=== PATIENT | female | born 1945 | race Caucasian/White ===

== ENCOUNTER 2016-09-18 10:56 | Emergency (ER) | payer MEDICARE ==
[2016-09-18] MEDS ORDERED: SODIUM CHLORIDE 0.9% 500 ML IV STA (11:22)
[2016-09-18] MEDS ORDERED: SODIUM CHLORIDE 0.9% 1,000 ML IV STA (11:22)
[2016-09-18] MEDS ORDERED: cefTRIAXone 2,000 MG in SODIUM CHLORIDE 0.9% 100 ML IVPB STA (11:24)
[2016-09-18 12:05] VITALS: TEMP 97.8
[2016-09-18 12:13] LABS: Basophils % (A) 0 %; CH 29.2; CHCM 32.2; Eosinophils # (A) 0.1 k/uL (0-0.7); Eosinophils % (A) 2 %; HCT 45.2 % (34.0-46.0); HDW 2.22; HGB 14.2 gm/dL (11.4-16.0); Luc % (Auto) 2; Lymphocytes # (A) 0.6 k/uL (1.0-4.8); Lymphocytes % (A) 9 %; MCH 28.7 pg (25.0-35.0); MCHC 31.4 g/dL (31.0-37.0); MCV 91.3 fL (80.0-100.0); Mean Platelet Volume 6.2; Monocytes # (A) 0.4 k/uL (0-1.0); Monocytes % (A) 6 %; Neutrophils # (A) 5.5 k/uL (1.3-7.7); Neutrophils % (A) 82 %; RBC 4.95 m/uL (3.80-5.40); RDW 13.4 % (11.5-15.5); WBC 6.8 k/uL (3.8-10.6); WBC (Perox) 6.75
[2016-09-18 12:25] LABS: ALT 31 U/L (9-52); AST 17 U/L (14-36); Alkaline Phosphatase 78 U/L (38-126); Anion Gap 13 mmol/L; Blood Urea Nitrogen 11 mg/dL (7-17); Calcium 9.9 mg/dL (8.4-10.2); Carbon Dioxide 30 mmol/L (22-30); Chloride 100 mmol/L (98-107); Creatine Kinase 30 U/L (30-135); Glucose 110 mg/dL (74-99); Magnesium 1.2 mg/dL (1.6-2.3); Non-African American GFR(MDRD) >60 (>60 ml/min/1.73 sqM); Potassium 4.9 mmol/L (3.5-5.1); Sodium 143 mmol/L (137-145); Total Bilirubin 0.9 mg/dL (0.2-1.3); Total Protein 6.8 g/dL (6.3-8.2)
[2016-09-18 12:36] LABS: Troponin I <0.012 ng/mL (0.000-0.034)
[2016-09-18 12:46] LABS: INR 1.1 (<1.1); Partial Thromboplastin Time 24.3 sec (22.0-30.0); Prothrombin Time 10.7 sec (9.0-12.0)
--- NOTE | 2016-09-18 13:01 | XR ---
EXAMINATION TYPE: XR chest 2V DATE OF EXAM: 09/18/2016 12:42 PM COMPARISON: 07/18/[address] 09/01/2016 HISTORY: 71-year-old female with dysrhythmia and history of lung cancer TECHNIQUE: PA and lateral views FINDINGS: Hyperinflation with diffuse interstitial densities. Heart is normal size. As compared to the prior ra diograph, there is a new small left pleural effusion. Continued left perihilar opacity. IMPRESSION: 1. COPD with known left perihilar malignancy. 2. New small left pleural effusion.
[2016-09-18 13:28] LABS: Appearance,Urine Clear (Clear); Bilirubin,Urine Negative (Negative); Glucose,Urine (UA) Negative (Negative); Ketones,Urine Negative (Negative); Leukocyte Esterase,Urine Negative (Negative); Nitrite,Urine Negative (Negative); Protein,Urine Negative (Negative); Specific Gravity,Urine 1.007 (1.001-1.035); UA Billing (MACRO vs. MICRO) CHEM; Urobilinogen,Urine <2.0 mg/dL (<2.0)
--- NOTE | 2016-09-18 14:15 | ED ---
Arrhythmia/Palpitations HPI - General Chief Complaint: Arrhythmia/Palpitations Stated Complaint: chest pain Time Seen by Provider: 09/18/16 11:12 Source: patient Mode of arrival: wheelchair Limitations: no limitations - History of Present Illness Initial Comments: came in with a palpitation him a she does have a history of lung cancer and she had a radiation treatment today this palpitation his own, ongoing for about 24 hours she denies any fever no chills she has a history pneumonia as well. She denies any chest pain now she denies any pleuritic chest pain denies any fever no chills does have a chronic sputum production and now Dr. Davis is her oncologist area no headaches no neck stiffness no sinus symptoms of TIA or CVA - Related Data Home Medications Medication Instructions Recorded Confirmed Acetaminophen [Tylenol] 500 mg PO Q4-6H PRN 08/08/16 09/18/16 Levothyroxine Sodium [Synthroid] 25 mcg PO DAILY 08/08/16 09/18/16 Omeprazole [PriLOSEC] 20 mg PO AC-BRKFST 08/08/16 09/18/16 Simvastatin [Zocor] 20 mg PO HS 08/08/16 09/18/16 amLODIPine BESYLATE [Norvasc] 5 mg PO DAILY 08/08/16 09/18/16 Azithromycin [Zithromax Z-pack] See Taper PO DAILY 09/18/16 09/18/16 Budesonide-Formot 160-4.5 Mcg 2 puff INHALATION RT-BID 09/18/16 09/18/16 [Symbicort 160-4.5 Mcg Inhaler] Previous Rx's Medication Instructions Recorded Ipratropium-Albuterol Nebulize 3 ml INHALATION RT-QID #120 09/03/16 [Duoneb 0.5 mg-3 mg/3 ml Soln] ampul.neb predniSONE 50 mg PO DAILY #5 tab 09/18/16 Allergies Allergy/AdvReac Type Severity Reaction Status Date / Time Penicillins Allergy Rash/Hives Verified 09/18/16 11:41 Review of Systems ROS Statement: Those systems with pertinent positive or pertinent negative responses have been documented in the HPI. ROS Other: All systems not noted in ROS Statement are negative. Past Medical History Past Medical History: Cancer, GERD/Reflux, Hyperlipidemia, Hypertension, Osteoarthritis (OA), Thyroid Disorder Additional Past Medical History / Comment(s): left breast cancer, COPD, adenocarcinoma of the lung, likely of a lung primary/metastatic at this stage, hoarseness likely secondary to vocal cord paralysis on the left History of Any Multi-Drug Resistant Organisms: None Reported Past Surgical History: Cholecystectomy, Orthopedic Surgery Additional Past Surgical History / Comment(s): left total knee replacement 2012 , gall bladder 2007, left breat lumpectomy in 1999 with radiation treatments and lymph node removal on left side, EGD and colonoscopy that showed 3 polyps, left supraclavicular lymph node biopsy Past Anesthesia/Blood Transfusion Reactions: No Reported Reaction Additional Past Anesthesia/Blood Transfusion Reaction / Comment(s): blood transfusion when she has her children-no ractions to the blood Past Psychological History: No Psychological Hx Reported Smoking Status: Former smoker Past Alcohol Use History: Occasional Additional Past Alcohol Use History / Comment(s): quit smoking 12 years ago Past Drug Use History: None Reported - Past Family History Mother Family Medical History: Cancer (Mother at age of 70 from rectal cancer.) Additional Family Medical History / Comment(s): bowel Father Family Medical History: CVA/TIA (Father at age of 81 from CVA.) Brother(s) Family Medical History: No Reported History (Patient has one brother no major medical problems) Sister(s) Family Medical History: No Reported History (Patient has one sister no major medical problems) Daughter(s) Family Medical History: No Reported History (Patient has a daughter no major medical problems) Son(s) Family Medical History: No Reported History (Patient has a son no major medical problems) General Exam - General Exam Comments Initial Comments: General: The patient is awake and alert, in mild distress, GCS 15 Skin: Skin is warm and dry and no rashes or lesions are noted. Does look pale Eye: Pupils are equal, round and reactive to light, extra-ocular movements are intact; there is normal conjunctiva bilaterally. Ears, nose, mouth and throat: There are moist mucous membranes and no oral lesions. Neck: The neck is supple, there is no tenderness or JVD. Cardiovascular: There is a regular rate and rhythm. No murmur, rub or gallop is appreciated. Has a tachycardia Respiratory: To auscultation bilateral, sitting on history of smoking she still have a very good air exchange bilaterally Gastrointestinal: Soft, non-distended, non-tender abdomen without masses or organomegaly noted. There is no rebound or guarding present. Bowel sounds are unremarkable. Back: There is no tenderness to palpation in the midline. There is no obvious deformity. Musculoskeletal: Normal ROM, no tenderness, There is no pedal edema. There is no calf tenderness or swelling. No cords were appreciated. Neurological: CN II-XII intact, Cranial nerves III through XII are intact. There are no obvious motor or sensory deficits. Coordination appears grossly intact. Speech is normal. Psychiatric: Cooperative, appropriate mood & affect, normal judgment. 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 ] Respiratory 18 16 Rate Blood Pressure 110/68 128/68 O2 Sat by Pulse 94 L 94 L Oximetry EKG Findings - EKG Comments: EKG Findings:: Is sinus tachycardia heart rate is 119, AL interval is 134 QRS duration is 70, QT/QTc is 312/438, devious this EKG does not reveal any ST elevation or ST depression Medical Decision Making - Lab Data Result diagrams: 09/18/16 11:53 09/18/16 11:53 Lab Results 09/18/16 09/18/16 09/18/16 Range/Units 11:53 11:53 11:53 WBC 6.8 (3.8-10.6) k/uL RBC 4.95 (3.80-5.40) m/uL Hgb 14.2 (11.4-16.0) gm/dL Hct 45.2 (34.0-46.0) % MCV 91.3 (80.0-100.0) fL MCH 28.7 (25.0-35.0) pg MCHC 31.4 (31.0-37.0) g/dL RDW 13.4 (11.5-15.5) % Plt Count 270 (150-450) k/uL Neutrophils % 82 % Lymphocytes % 9 % Monocytes % 6 % Eosinophils % 2 % Basophils % 0 % Neutrophils # 5.5 (1.3-7.7) k/uL Lymphocytes # 0.6 L (1.0-4.8) k/uL Monocytes # 0.4 (0-1.0) k/uL Eosinophils # 0.1 (0-0.7) k/uL Basophils # 0.0 (0-0.2) k/uL PT (9.0-12.0) sec INR (<1.1) APTT (22.0-30.0) sec Sodium 143 (137-145) mmol/L Potassium 4.9 (3.5-5.1) mmol/L Chloride 100 (98-107) mmol/L Carbon Dioxide 30 (22-30) mmol/L Anion Gap 13 mmol/L BUN 11 (7-17) mg/dL Creatinine 0.81 (0.52-1.04) mg/dL Est GFR (MDRD) Af Amer >60 (>60 ml/min/1.73 sqM) Est GFR (MDRD) Non-Af >60 (>60 ml/min/1.73 sqM) Glucose 110 H (74-99) mg/dL Calcium 9.9 (8.4-10.2) mg/dL Magnesium 1.2 L (1.6-2.3) mg/dL Total Bilirubin 0.9 (0.2-1.3) mg/dL AST 17 (14-36) U/L ALT 31 (9-52) U/L Alkaline Phosphatase 78 (38-126) U/L Total Creatine Kinase 30 (30-135) U/L CK-MB (CK-2) 1.0 (0.0-2.4) ng/mL CK-MB (CK-2) Rel Index 3.3 Troponin I <0.012 (0.000-0.034) ng/mL Total Protein 6.8 (6.3-8.2) g/dL Albumin 3.9 (3.5-5.0) g/dL TSH 1.570 (0.465-4.680) mIU/L Urine Color Urine Appearance (Clear) Urine pH (5.0-8.0) Ur Specific [place] (1.001-1.035) Urine Protein (Negative) Urine Glucose (UA) (Negative) Urine Ketones (Negative) Urine Blood (Negative) Urine Nitrate (Negative) Urine Bilirubin (Negative) Urine Urobilinogen (<2.0) mg/dL Ur Leukocyte Esterase (Negative) 09/18/16 09/18/16 Range/Units 11:53 12:50 WBC (3.8-10.6) k/uL RBC (3.80-5.40) m/uL Hgb (11.4-16.0) gm/dL Hct (34.0-46.0) % MCV (80.0-100.0) fL MCH (25.0-35.0) pg MCHC (31.0-37.0) g/dL RDW (11.5-15.5) % Plt Count (150-450) k/uL Neutrophils % % Lymphocytes % % Monocytes % % Eosinophils % % Basophils % % Neutrophils # (1.3-7.7) k/uL Lymphocytes # (1.0-4.8) k/uL Monocytes # (0-1.0) k/uL Eosinophils # (0-0.7) k/uL Basophils # (0-0.2) k/uL PT 10.7 (9.0-12.0) sec INR 1.1 (<1.1) APTT 24.3 (22.0-30.0) sec Sodium (137-145) mmol/L Potassium (3.5-5.1) mmol/L Chloride (98-107) mmol/L Carbon Dioxide (22-30) mmol/L Anion Gap mmol/L BUN (7-17) mg/dL Creatinine (0.52-1.04) mg/dL Est GFR (MDRD) Af Amer (>60 ml/min/1.73 sqM) Est GFR (MDRD) Non-Af (>60 ml/min/1.73 sqM) Glucose (74-99) mg/dL Calcium (8.4-10.2) mg/dL Magnesium (1.6-2.3) mg/dL Total Bilirubin (0.2-1.3) mg/dL AST (14-36) U/L ALT (9-52) U/L Alkaline Phosphatase (38-126) U/L Total Creatine Kinase (30-135) U/L CK-MB (CK-2) (0.0-2.4) ng/mL CK-MB (CK-2) Rel Index Troponin I (0.000-0.034) ng/mL Total Protein (6.3-8.2) g/dL Albumin (3.5-5.0) g/dL TSH (0.465-4.680) mIU/L Urine Color Yellow Urine Appearance Clear (Clear) Urine pH 7.0 (5.0-8.0) Ur Specific [place] 1.007 (1.001-1.035) Urine Protein Negative (Negative) Urine Glucose (UA) Negative (Negative) Urine Ketones Negative (Negative) Urine Blood Negative (Negative) Urine Nitrate Negative (Negative) Urine Bilirubin Negative (Negative) Urine Urobilinogen <2.0 (<2.0) mg/dL Ur Leukocyte Esterase Negative (Negative) Critical Care Time Total Critical Care Time: 35 Critical Care Time: When she came in she was quite tachycardic and quite anxious she was given a neb treatments and Solu-Medrol, this settle things down R great her heart rate has dropped to around 1 06/14/1941 she feels lot better I offered her admission for the treatment of acute exacerbation of COPD she stated she has antibiotic at home and she do not like to steroids but she wouldn't want to the prescription of steroids and we'll determine if she develops a fever him a respecting her wishes him a she will be discharged Disposition Clinical Impression: Tachycardia, History of lung cancer, COPD with acute exacerbation Disposition: HOME SELF-CARE Condition: Fair Instructions: Palpitations (ED) Prescriptions: predniSONE 50 mg PO DAILY #5 tab
[2016-09-18 14:23] VITALS: BP 126/72; PULSE 114; RESP 14
== END 2016-09-18 14:31 | disposition home or self-care (01) ==
LOC: EC 10:56
DX: J44.1 Chronic obstructive pulmonary disease with (acute) exacerbation (principal); C34.90 Malignant neoplasm of unspecified part of unspecified bronchus or lung; Z87.01 Personal history of pneumonia (recurrent); R00.0 Tachycardia, unspecified; I10 Essential (primary) hypertension; E78.5 Hyperlipidemia, unspecified; E07.9 Disorder of thyroid, unspecified; K21.9 Gastro-esophageal reflux disease without esophagitis; Z79.51 Long term (current) use of inhaled steroids; Z79.899 Other long term (current) drug therapy; Z88.0 Allergy status to penicillin; Z85.3 Personal history of malignant neoplasm of breast; Z87.891 Personal history of nicotine dependence
CPT/HCPCS: 99291; 96365; 96361; 36415; 93005; 80053; 82550; 82553; 83735; 84443; 84484; 85025; 85610; 85730; 81003; 87040; 87086; 71020; J0696

== ENCOUNTER → 2016-10-13 | Outpatient (CLI) | payer MEDICARE ==
[2016-10-13 13:03] LABS: Blood Urea Nitrogen 20 mg/dL (7-17); Non-African American GFR(MDRD) >60 (>60 ml/min/1.73 sqM)
--- NOTE | 2016-10-13 13:52 | CT ---
EXAMINATION TYPE: CT chest w con DATE OF EXAM: 10/13/2016 1:29 PM COMPARISON: 08/04/2016 HISTORY: Follow up lung cancer, history of breast cancer CT DLP: 171.8 mGycm Automated exposure control for dose reduction was used. CONTRAST: CT scan of the chest is performed with IV Contrast, patient injected with 100 mL of Omnipaque 300. FINDINGS: LUNGS: Left upper lobe mass is significantly improved relative to the prior study and currently measu res approximately 3.3 x 2.2 cm versus 4.2 x 3.7 cm previously. Mass extends to the pleural surface as well as linear density extending to the left hilum. There are however new multiple pulmonary nodules throughout both lung fischer which have increased in number and size in the interval. The number of n odules bilaterally is considered innumerable. The largest nodule at the left lung base measures 1.7 c m with the largest at the right lower lobe posterior sulcus measuring 1.5 cm. Mediastinum and hilum: Right hilar adenopathy measures 2.4 cm versus not present previously. Left hil ar adenopathy appears improved measuring 9.7 mm versus 1.2 cm. Prevascular space adenopathy persists as well and is also essentially unchanged measuring up to 1.3 cm. Right paratracheal adenopathy measu res 1.7 cm versus 1.2 cm. Subcarinal adenopathy measures 2.2 cm versus 1.8 cm. Paraesophageal adenopa thy noted as well measuring 1.8 cm versus 1.2 cm. No pericardial effusion is seen. Thoracic aorta is of normal caliber. The heart is not enlarged. UPPER ABDOMEN: Hypervascular lesion within the anterior segment right hepatic lobe at its periphery i s essentially unchanged. No additional hepatic lesions identified with certainty. OTHER: Left supraclavicular adenopathy is unchanged and measuring 2.7 cm versus 2.7 cm previously. S ubcutaneous nodule measuring 1 cm anterior to the chest wall just inferior to the right breast lumpec larry changes left breast with small spiculated density remaining unchanged. IMPRESSION: 1. Significant improvement in left upper lobe mass which currently measures 3.3 x 2.2 cm versus 4.2 x 3.7 cm previously however there are innumerable pulmonary nodules which have increased in size and n umber in the interval compatible with metastatic disease. 2. Mediastinal and hilar adenopathy as discussed above. Some of the adenopathy appears to have progre ssed. 3. Suspect hepatic metastatic lesion which is stable.
== END | disposition home or self-care (01) ==
LOC: RADCTMAIN 12:28
PROVIDERS: ATTEND Internal Medicine Hematology & Oncology
DX: R91.8 Other nonspecific abnormal finding of lung field (principal); R59.0 Localized enlarged lymph nodes
CPT/HCPCS: 82565; 84520; 71260; 36415; Q9967

== ENCOUNTER 2016-10-16 14:21 | Inpatient (IN) | payer MEDICARE ==
[2016-10-16] MEDS ORDERED: SODIUM CHLORIDE 0.9% 1,000 ML IV STA ×3 (15:04→16:13)
--- NOTE | 2016-10-16 15:17 | ED ---
General Adult HPI - General Chief complaint: Arrhythmia/Palpitations Stated complaint: elevated heart rate-sent by Dr. Sr Seen by Provider: 10/16/16 15:04 Source: patient, RN notes reviewed, old records reviewed Mode of arrival: wheelchair Limitations: no limitations - History of Present Illness Initial comments: This is a 71-year-old female the ER for evaluation of weakness, tachycardia, mild shortness of breath. Patient does have cancer and suffers from tachycardia , dehydration weakness. Patient coming in for same symptoms. Increasing her in the 160s today, shortness of breath. Patient denies any fevers, no cough no congestion. This started this week tired and fatigued - Related Data Home Medications Medication Instructions Recorded Confirmed Acetaminophen [Tylenol] 500 mg PO Q4-6H PRN 08/08/16 10/16/16 Levothyroxine Sodium [Synthroid] 25 mcg PO DAILY 08/08/16 10/16/16 Omeprazole [PriLOSEC] 20 mg PO AC-BRKFST 08/08/16 10/16/16 Simvastatin [Zocor] 20 mg PO HS 08/08/16 10/16/16 amLODIPine BESYLATE [Norvasc] 5 mg PO DAILY 08/08/16 10/16/16 Budesonide-Formot 160-4.5 Mcg 2 puff INHALATION RT-BID 09/18/16 10/16/16 [Symbicort 160-4.5 Mcg Inhaler] ALPRAZolam [Xanax] 0.5 mg PO DAILY PRN 10/16/16 10/16/16 Ipratropium-Albuterol Nebulize 3 ml INHALATION RT-TID PRN 10/16/16 10/16/16 [Duoneb 0.5 mg-3 mg/3 ml Soln] Ondansetron [Zofran] 4 mg PO TID 10/16/16 10/16/16 Allergies Allergy/AdvReac Type Severity Reaction Status Date / Time Penicillins Allergy Rash/Hives Verified 10/16/16 15:56 Review of Systems ROS Statement: Those systems with pertinent positive or pertinent negative responses have been documented in the HPI. ROS Other: All systems not noted in ROS Statement are negative. Past Medical History Past Medical History: Cancer, GERD/Reflux, Hyperlipidemia, Hypertension, Osteoarthritis (OA), Thyroid Disorder Additional Past Medical History / Comment(s): left breast cancer, COPD, adenocarcinoma of the lung, likely of a lung primary/metastatic at this stage, hoarseness likely secondary to vocal cord paralysis on the left History of Any Multi-Drug Resistant Organisms: None Reported Past Surgical History: Cholecystectomy, Orthopedic Surgery Additional Past Surgical History / Comment(s): left total knee replacement 2012 , gall bladder 2007, left breat lumpectomy in 1999 with radiation treatments and lymph node removal on left side, EGD and colonoscopy that showed 3 polyps, left supraclavicular lymph node biopsy Past Anesthesia/Blood Transfusion Reactions: No Reported Reaction Additional Past Anesthesia/Blood Transfusion Reaction / Comment(s): blood transfusion when she has her children-no ractions to the blood Past Psychological History: No Psychological Hx Reported Smoking Status: Former smoker Past Alcohol Use History: Occasional Additional Past Alcohol Use History / Comment(s): quit smoking 12 years ago Past Drug Use History: None Reported - Past Family History Mother Family Medical History: Cancer (Mother at age of 70 from rectal cancer.) Additional Family Medical History / Comment(s): bowel Father Family Medical History: CVA/TIA (Father at age of 81 from CVA.) Brother(s) Family Medical History: No Reported History (Patient has one brother no major medical problems) Sister(s) Family Medical History: No Reported History (Patient has one sister no major medical problems) Daughter(s) Family Medical History: No Reported History (Patient has a daughter no major medical problems) Son(s) Family Medical History: No Reported History (Patient has a son no major medical problems) General Exam Limitations: no limitations General appearance: alert, in no apparent distress Head exam: Present: atraumatic, normocephalic, normal inspection Eye exam: Present: normal appearance, PERRL, EOMI. Absent: scleral icterus, conjunctival injection, periorbital swelling ENT exam: Present: normal exam, mucous membranes moist Neck exam: Present: normal inspection. Absent: tenderness, meningismus, lymphadenopathy Respiratory exam: Present: normal lung sounds bilaterally. Absent: respiratory distress, wheezes, rales, rhonchi, stridor Cardiovascular Exam: Present: tachycardia, irregular rhythm, normal heart sounds. Absent: systolic murmur, diastolic murmur, rubs, gallop, clicks GI/Abdominal exam: Present: soft, normal bowel sounds. Absent: distended, tenderness, guarding, rebound, rigid Extremities exam: Present: normal inspection, full ROM, normal capillary refill. Absent: tenderness, pedal edema, joint swelling, calf tenderness Back exam: Present: normal inspection Neurological exam: Present: alert, oriented X3, CN II-XII intact Psychiatric exam: Present: normal affect, normal mood Skin exam: Present: warm, dry, intact, normal color. Absent: rash Course Vital Signs 10/16/16 10/16/16 10/16/16 14:37 15:09 15:21 Temperature 97.7 F Pulse Rate 126 H 112 H Respiratory 18 20 18 Rate Blood Pressure 149/69 121/72 O2 Sat by Pulse 96 96 Oximetry - Reevaluation(s) Reevaluation #1: 10/16/16 16:17 Patient still feels weak EKG Findings - EKG Comments: EKG Findings:: EKG shows sinus tachycardia rate 117, LA 144, QRS 94, QTC 426 Medical Decision Making - Medical Decision Making 71 female the ER with history of lung cancer coming in with tachycardia elevated heart rate dehydration and decreased appetite. Patient is dehydrated with mild renal failure, is low magnesium. Patient be admitted for magnesium replacement and IV hydration and fluid resuscitation - Lab Data Result diagrams: 10/16/16 15:00 10/16/16 15:00 Lab Results 10/16/16 10/16/16 10/16/16 Range/Units 15:00 15:00 15:00 WBC 2.1 L (3.8-10.6) k/uL RBC 5.17 (3.80-5.40) m/uL Hgb 15.0 (11.4-16.0) gm/dL Hct 45.8 (34.0-46.0) % MCV 88.5 (80.0-100.0) fL MCH 29.0 (25.0-35.0) pg MCHC 32.8 (31.0-37.0) g/dL RDW 12.9 (11.5-15.5) % Plt Count 301 (150-450) k/uL Neutrophils % 64 % Lymphocytes % 25 % Monocytes % 3 % Eosinophils % 4 % Basophils % 1 % Neutrophils # 1.4 (1.3-7.7) k/uL Lymphocytes # 0.5 L (1.0-4.8) k/uL Monocytes # 0.1 (0-1.0) k/uL Eosinophils # 0.1 (0-0.7) k/uL Basophils # 0.0 (0-0.2) k/uL PT (9.0-12.0) sec INR (<1.1) APTT (22.0-30.0) sec Sodium 138 (137-145) mmol/L Potassium 4.2 (3.5-5.1) mmol/L Chloride 97 L (98-107) mmol/L Carbon Dioxide 24 (22-30) mmol/L Anion Gap 17 mmol/L BUN 23 H (7-17) mg/dL Creatinine 1.00 (0.52-1.04) mg/dL Est GFR (MDRD) Af Amer >60 (>60 ml/min/1.73 sqM) Est GFR (MDRD) Non-Af 55 (>60 ml/min/1.73 sqM) Glucose 118 H (74-99) mg/dL Calcium 10.2 (8.4-10.2) mg/dL Phosphorus 3.5 (2.5-4.5) mg/dL Magnesium 1.2 L (1.6-2.3) mg/dL Total Bilirubin 0.8 (0.2-1.3) mg/dL AST 21 (14-36) U/L ALT 34 (9-52) U/L Alkaline Phosphatase 89 (38-126) U/L Total Creatine Kinase 25 L (30-135) U/L CK-MB (CK-2) 0.6 (0.0-2.4) ng/mL CK-MB (CK-2) Rel Index 2.4 Troponin I <0.012 (0.000-0.034) ng/mL Total Protein 7.5 (6.3-8.2) g/dL Albumin 4.5 (3.5-5.0) g/dL TSH 3.190 (0.465-4.680) mIU/L 10/16/16 Range/Units 15:00 WBC (3.8-10.6) k/uL RBC (3.80-5.40) m/uL Hgb (11.4-16.0) gm/dL Hct (34.0-46.0) % MCV (80.0-100.0) fL MCH (25.0-35.0) pg MCHC (31.0-37.0) g/dL RDW (11.5-15.5) % Plt Count (150-450) k/uL Neutrophils % % Lymphocytes % % Monocytes % % Eosinophils % % Basophils % % Neutrophils # (1.3-7.7) k/uL Lymphocytes # (1.0-4.8) k/uL Monocytes # (0-1.0) k/uL Eosinophils # (0-0.7) k/uL Basophils # (0-0.2) k/uL PT 10.9 (9.0-12.0) sec INR 1.1 (<1.1) APTT 26.2 (22.0-30.0) sec Sodium (137-145) mmol/L Potassium (3.5-5.1) mmol/L Chloride (98-107) mmol/L Carbon Dioxide (22-30) mmol/L Anion Gap mmol/L BUN (7-17) mg/dL Creatinine (0.52-1.04) mg/dL Est GFR (MDRD) Af Amer (>60 ml/min/1.73 sqM) Est GFR (MDRD) Non-Af (>60 ml/min/1.73 sqM) Glucose (74-99) mg/dL Calcium (8.4-10.2) mg/dL Phosphorus (2.5-4.5) mg/dL Magnesium (1.6-2.3) mg/dL Total Bilirubin (0.2-1.3) mg/dL AST (14-36) U/L ALT (9-52) U/L Alkaline Phosphatase (38-126) U/L Total Creatine Kinase (30-135) U/L CK-MB (CK-2) (0.0-2.4) ng/mL CK-MB (CK-2) Rel Index Troponin I (0.000-0.034) ng/mL Total Protein (6.3-8.2) g/dL Albumin (3.5-5.0) g/dL TSH (0.465-4.680) mIU/L - Radiology Data Radiology results: report reviewed (Chest x-ray negative for acute disease), image reviewed Disposition Clinical Impression: Tachycardia, Weakness, Hypomagnesemia Disposition: ADMITTED IP TO THIS HOSP Condition: Good Referrals: Collins Bruno DO [Primary Care Provider] - 1-2 days
[2016-10-16 15:21] LABS: Basophils % (A) 1 %; CH 29.3; CHCM 33.2; Eosinophils # (A) 0.1 k/uL (0-0.7); Eosinophils % (A) 4 %; HCT 45.8 % (34.0-46.0); HDW 2.41; Luc # (Auto) 0.07; Luc % (Auto) 3; Lymphocytes # (A) 0.5 k/uL (1.0-4.8); Lymphocytes % (A) 25 %; MCHC 32.8 g/dL (31.0-37.0); MCV 88.5 fL (80.0-100.0); Mean Platelet Volume 6.3; Monocytes # (A) 0.1 k/uL (0-1.0); Monocytes % (A) 3 %; Neutrophils # (A) 1.4 k/uL (1.3-7.7); Neutrophils % (A) 64 %; RBC 5.17 m/uL (3.80-5.40); RDW 12.9 % (11.5-15.5); WBC 2.1 k/uL (3.8-10.6); WBC (Perox) 2.08
[2016-10-16 15:25] LABS: Glucose 118 mg/dL (74-99)
[2016-10-16 15:26] LABS: ALT 34 U/L (9-52); AST 21 U/L (14-36); Alkaline Phosphatase 89 U/L (38-126); Anion Gap 17 mmol/L; Blood Urea Nitrogen 23 mg/dL (7-17); Calcium 10.2 mg/dL (8.4-10.2); Carbon Dioxide 24 mmol/L (22-30); Chloride 97 mmol/L (98-107); INR 1.1 (<1.1); Magnesium 1.2 mg/dL (1.6-2.3); Non-African American GFR(MDRD) 55 (>60 ml/min/1.73 sqM); Partial Thromboplastin Time 26.2 sec (22.0-30.0); Phosphorous 3.5 mg/dL (2.5-4.5); Potassium 4.2 mmol/L (3.5-5.1); Prothrombin Time 10.9 sec (9.0-12.0); Sodium 138 mmol/L (137-145); Total Bilirubin 0.8 mg/dL (0.2-1.3); Total Protein 7.5 g/dL (6.3-8.2)
[2016-10-16 15:36] LABS: Creatine Kinase 25 U/L (30-135)
--- NOTE | 2016-10-16 15:39 | XR ---
EXAMINATION TYPE: XR chest 2V DATE OF EXAM: 10/16/2016 3:31 PM COMPARISON: 09/18/2016 HISTORY: Shortness of breath FINDINGS: Hyperinflation compatible COPD. Coarsened interstitium suggestive of pulmonary fibrosis. Left upper l obe mass appears reduced in size measuring approximately 3.3 cm. Nodularity at the lung bases also no bryson. Degenerative change of the spine. IMPRESSION: 1. COPD with suspected pulmonary fibrosis. 2. Bilateral pulmonary nodules and left upper lobe lung mass.
[2016-10-16 15:50] LABS: Creatine Kinase MB 0.6 ng/mL (0.0-2.4); Troponin I <0.012 ng/mL (0.000-0.034)
[2016-10-16] MEDS ORDERED: SODIUM CHLORIDE 0.9% 1,000 ML IV ONE (16:12)
[2016-10-16] MEDS: MAGNESIUM SULFATE-D5W PMX 1 GM in DEXTROSE/WATER 1 100ML.BAG IVPB SCH ×3 (16:26→22:01)
[2016-10-16 17:40] LABS: Appearance,Urine Clear (Clear); Bacteria,Urine Rare /hpf; Bilirubin,Urine Negative (Negative); Glucose,Urine (UA) Negative (Negative); Ketones,Urine Negative (Negative); Leukocyte Esterase,Urine Trace (Negative); Mucus,Urine Occasional /hpf; Nitrite,Urine Negative (Negative); PH, Urine 5.5 (5.0-8.0); Particle Count 932; Protein,Urine Negative (Negative); RBC,Urine <1 /hpf (0-5); Specific Gravity,Urine 1.007 (1.001-1.035); UA Billing (MACRO vs. MICRO) MICRO; Urobilinogen,Urine <2.0 mg/dL (<2.0); WBC,Urine 1 /hpf (0-5)
[2016-10-16] MEDS ORDERED: IPRATROPIUM-ALBUTEROL 3 ML NEB INHALATION PRN (20:42)
[2016-10-16] MEDS ORDERED: ACETAMINOPHEN TAB 500 MG TAB PO PRN (20:42)
[2016-10-16] MEDS ORDERED: ALPRAZolam 0.5 MG TAB PO PRN (20:42)
[2016-10-16] MEDS ORDERED: ATORVASTATIN 10 MG TAB PO SCH (21:00)
[2016-10-16] MEDS: ONDANSETRON 4 MG TAB PO SCH (22:02)
[2016-10-17] MEDS: MAGNESIUM SULFATE-D5W PMX 1 GM in DEXTROSE/WATER 1 100ML.BAG IVPB SCH (00:21)
[2016-10-17] MEDS ORDERED: LEVOTHYROXINE 25 MCG TAB PO SCH (06:30)
[2016-10-17] MEDS: ONDANSETRON 4 MG TAB PO SCH (07:13)
[2016-10-17] MEDS ORDERED: PANTOPRAZOLE 40 MG TABLET PO SCH (07:30)
[2016-10-17 07:42] VITALS: BP 126/58; PULSE 102; RESP 20; TEMP 97.9
[2016-10-17 07:51] LABS: Basophils % (A) 2 %; CH 28.8; CHCM 31.3; Eosinophils # (A) 0.1 k/uL (0-0.7); Eosinophils % (A) 6 %; HCT 35.9 % (34.0-46.0); HDW 2.25; Luc # (Auto) 0.05; Luc % (Auto) 3; Lymphocytes # (A) 0.5 k/uL (1.0-4.8); Lymphocytes % (A) 30 %; MCH 29.7 pg (25.0-35.0); MCHC 32.2 g/dL (31.0-37.0); MCV 92.4 fL (80.0-100.0); Mean Platelet Volume 6.4; Monocytes # (A) 0.1 k/uL (0-1.0); Monocytes % (A) 8 %; Neutrophils # (A) 0.8 k/uL (1.3-7.7); Neutrophils % (A) 51 %; RBC 3.89 m/uL (3.80-5.40); RDW 12.9 % (11.5-15.5); WBC (Perox) 1.72
[2016-10-17 07:54] LABS: ALT 30 U/L (9-52); AST 17 U/L (14-36); Alkaline Phosphatase 57 U/L (38-126); Anion Gap 12 mmol/L; Blood Urea Nitrogen 11 mg/dL (7-17); Calcium 8.6 mg/dL (8.4-10.2); Carbon Dioxide 22 mmol/L (22-30); Chloride 104 mmol/L (98-107); Glucose 94 mg/dL (74-99); HGB 11.6 gm/dL (11.4-16.0); Magnesium 2.2 mg/dL (1.6-2.3); Non-African American GFR(MDRD) >60 (>60 ml/min/1.73 sqM); Potassium 4.1 mmol/L (3.5-5.1); Sodium 138 mmol/L (137-145); Total Bilirubin 0.7 mg/dL (0.2-1.3); Total Protein 5.7 g/dL (6.3-8.2)
[2016-10-17 07:57] LABS: WBC 1.6 k/uL (3.8-10.6)
[2016-10-17] MEDS ORDERED: SYMBICORT 160-4.5 MCG INHALER INHALATION SCH (08:00)
[2016-10-17] MEDS ORDERED: amLODIPine 5 MG TAB PO SCH (09:00)
[2016-10-17] MEDS ORDERED: ENOXAPARIN 40 MG/0.4 ML SYRINGE SQ SCH (09:00)
[2016-10-17 13:42] VITALS: BMI 25.7
--- NOTE | 2016-10-21 08:36 | P.HPIM ---
History of Present Illness H&P Date: 10/16/16 Chief Complaint: Acute kidney injury/hypomagnesemia/sinus tachycardia This is a 71-year-old female patient of Dr. Bruno has a recent diagnosis of a lung mass which is considered to be of a primary lung. Her history dates back to around a few months back when she started having symptoms of increased cough and shortness of breath and she was given several rounds of antibiotics and ultimately she had a CAT scan of the chest which showed a masslike consolidation in the lingula in addition to left hilar, subcarinal, right hilar and an left supraclavicular lymphadenopathy. Based on this, the patient was sent for a fine-needle aspirate of the supraclavicular lymph node and a diagnosis was consistent with adenocarcinoma and the pathologist favored a GI origin rather than lungs. A PET scan was also completed which also confirmed the findings with her was a left upper lobe mass extending to the left hilar and supraclavicular area with intense uptake consistent with carcinoma. Based on the path report, the patient was referred to [place] for a second opinion. The patient was able to see Dr. Casie Montero and she is seeing Dr. Davis locally. In addition, the mediastinal mass is causing mass effect on the mid esophagus causing proximal esophageal dilatation. Apparently the patient was discharged and has been following with Dr. Melissa and she has been getting chemotherapy, today she went for evaluation and the patient had episode of sinus tachycardia and she was quite dehydrated she ended up referred to the emergency perforated evaluation she was found to have hypomagnesemia and acute kidney injury due to dehydration she was started on IV fluid resuscitation she was admitted to hospital for evaluation and the hematology oncology consultation was obtained from Dr. Davis . Review of Systems Constitutional: Reports anorexia, Reports fatigue, Reports lethargy, Reports weakness, Reports weight loss Eyes: denies blurred vision Ears: deny: decreased hearing Ears, nose, mouth and throat: Denies dysphagia, Denies neck lump, Denies sore throat Cardiovascular: Reports decreased exercise tolerance, Reports dyspnea on exertion, Reports rapid heart beat, Reports shortness of breath, Denies chest pain, Denies syncope Respiratory: Reports congestion, Reports cough, Reports cough with sputum, Reports dyspnea, Reports wheezing, Denies sleep apnea, Denies snoring Gastrointestinal: Reports nausea, Denies abdominal pain, Denies bloating, Denies BRBPR, Denies heartburn, Denies melena, Denies vomiting Genitourinary: Denies dysuria, Denies hematuria Musculoskeletal: Denies myalgias Musculoskeletal: absent: ankle pain, ankle stiffness, ankle swelling, elbow pain , elbow stiffness, elbow swelling, foot pain, foot stiffness, foot swelling, hand pain, hand stiffness, hand swelling, hip pain, hip stiffness, hip swelling , knee pain, knee stiffness, knee swelling, shoulder pain, shoulder stiffness, shoulder swelling, wrist pain, wrist stiffness, wrist swelling Integumentary: Denies pruritus, Denies rash Neurological: Denies numbness, Denies weakness Psychiatric: Denies anxiety, Denies depression Past Medical History Past Medical History: Cancer, GERD/Reflux, Hyperlipidemia, Hypertension, Osteoarthritis (OA), Thyroid Disorder Additional Past Medical History / Comment(s): left breast cancer, COPD, adenocarcinoma of the lung-"pt stated stage 4" finished 10 radiation tx and had first chemo tx 10-09-16,home 02 2 liters nc/ atc, hoarseness thought likely secondary to vocal cord paralysis on the left, intermittent lichen planus(none current) History of Any Multi-Drug Resistant Organisms: None Reported Past Surgical History: Cholecystectomy, Orthopedic Surgery Additional Past Surgical History / Comment(s): left total knee replacement 2012 , gall bladder 2007, left breat lumpectomy in 1999 with radiation treatments and lymph node removal on left side, EGD and colonoscopy that showed 3 polyps, left supraclavicular lymph node biopsy(pt stated was positive). Past Anesthesia/Blood Transfusion Reactions: No Reported Reaction Additional Past Anesthesia/Blood Transfusion Reaction / Comment(s): blood transfusion when she has her children-no ractions to the blood Past Psychological History: No Psychological Hx Reported Smoking Status: Former smoker Past Alcohol Use History: Occasional Additional Past Alcohol Use History / Comment(s): started smoking 89,quit smoking 12 years ago(2004), was smoking 1 ppd. Past Drug Use History: None Reported - Past Family History Mother Family Medical History: Cancer Additional Family Medical History / Comment(s): bowel Father Family Medical History: CVA/TIA Brother(s) Family Medical History: No Reported History Sister(s) Family Medical History: No Reported History Daughter(s) Family Medical History: No Reported History Son(s) Family Medical History: No Reported History Medications and Allergies Home Medications Medication Instructions Recorded Confirmed Type Acetaminophen [Tylenol] 500 mg PO Q4-6H PRN 08/08/16 10/16/16 History Levothyroxine Sodium [Synthroid] 25 mcg PO DAILY 08/08/16 10/16/16 History Omeprazole [PriLOSEC] 20 mg PO AC-BRKFST 08/08/16 10/16/16 History Simvastatin [Zocor] 20 mg PO HS 08/08/16 10/16/16 History amLODIPine BESYLATE [Norvasc] 5 mg PO DAILY 08/08/16 10/16/16 History Budesonide-Formot 160-4.5 Mcg 2 puff INHALATION RT-BID 09/18/16 10/16/16 History [Symbicort 160-4.5 Mcg Inhaler] ALPRAZolam [Xanax] 0.5 mg PO DAILY PRN 10/16/16 10/16/16 History Ipratropium-Albuterol Nebulize 3 ml INHALATION RT-TID PRN 10/16/16 10/16/16 History [Duoneb 0.5 mg-3 mg/3 ml Soln] Ondansetron [Zofran] 4 mg PO TID 10/16/16 10/16/16 History Allergies Allergy/AdvReac Type Severity Reaction Status Date / Time Penicillins Allergy Rash/Hives Verified 10/16/16 15:56 Physical Exam Vitals: Vital Signs Pulse Resp BP Pulse Ox 10/16/16 16:26 100 18 112/74 97 - Constitutional General appearance: mild distress, thin - EENT Eyes: anicteric sclerae, PERRLA, no ptosis, no scleral icterus, normal appearance ENT: normal oropharynx, no thrush Ears: bilateral: normal - Neck Neck: normal ROM, no rigidity, no thyromegaly Carotids: bilateral: upstroke delayed Thyroid: bilateral: normal size - Respiratory Respiratory: bilateral: diminished, rhonchi, prolonged expiration, negative: dullness, wheezing - Cardiovascular Rhythm: regular Heart sounds: normal: S1, S2 Abnormal Heart Sounds: no S3 Gallop, no S4 Gallop, no click - Gastrointestinal General gastrointestinal: normal bowel sounds, soft, no splenomegaly, no tenderness, no umbilical hernia, no ventral hernia - Integumentary Integumentary: decreased turgor, normal, normal turgor - Neurologic Neurologic: CNII-XII intact - Musculoskeletal Musculoskeletal: generalized weakness - Psychiatric Psychiatric: A&O x's 3, appropriate affect, intact judgment & insight Results CBC & Chem 7: 10/16/16 15:00 10/16/16 15:00 Labs: Abnormal Lab Results - Last 24 Hours (Table) 10/16/16 Range/Units 17:20 Ur Leukocyte Esterase Trace H (Negative) Urine Bacteria Rare H (None) /hpf Urine Mucus Occasional H (None) /hpf Thrombosis Risk Factor Assmnt - DVT/VTE Prophylaxis DVT/VTE Prophylaxis: Pharmacologic Prophylaxis ordered, Mechanical Prophylaxis ordered Assessment and Plan Plan: Assessment and plan: 1. Pre-renal azotemia. Start IV fluid resuscitation the form of normal saline at 100 mL an hour, monitor CMP magnesium tomorrow morning. 2. Hypomagnesemia. Patient will be given magnesium sulfate 2 g IV piggyback 1. Repeat magnesium tomorrow morning 3. Hypertension and hypertensive cardiovascular disease. Continue amlodipine 5 mg orally once every day. 4. Hyperlipidemia. Continue simvastatin 20 mg orally bedtime. 5. Hypothyroidism. Continue Synthroid 25 g orally once every day. 6. Vitamin D deficiency. Continue vitamin D3 1000 international units once every day. 7. History of breast cancer status post left lumpectomy with radiation and 5 year hormonal therapy. 8. Hoarseness secondary to vocal cord paralysis. Stable at this time 9. DVT prophylaxis. Heparin 5000 units subcutaneously every 12 hours, bilateral knee-high MACY hose. 10. GI prophylaxis. Continue Protonix 40 mg IV push every 24 hours. 11. Patient is no code per her own wishes.
--- NOTE | 2016-10-21 08:45 | P.DS ---
Providers Date of admission: 10/16/16 16:12 Expected date of discharge: 10/17/16 Attending physician: Natalie Llanos Primary care physician: Collins [facility] Hospital Course: This is a 71-year-old female patient of Dr. Bruno has a recent diagnosis of a lung mass which is considered to be of a primary lung. Her history dates back to around a few months back when she started having symptoms of increased cough and shortness of breath and she was given several rounds of antibiotics and ultimately she had a CAT scan of the chest which showed a masslike consolidation in the lingula in addition to left hilar, subcarinal, right hilar and an left supraclavicular lymphadenopathy. Based on this, the patient was sent for a fine-needle aspirate of the supraclavicular lymph node and a diagnosis was consistent with adenocarcinoma and the pathologist favored a GI origin rather than lungs. A PET scan was also completed which also confirmed the findings with her was a left upper lobe mass extending to the left hilar and supraclavicular area with intense uptake consistent with carcinoma. Based on the path report, the patient was referred to [place] for a second opinion. The patient was able to see Dr. Casie Montero and she is seeing Dr. Davis locally. In addition, the mediastinal mass is causing mass effect on the mid esophagus causing proximal esophageal dilatation. Apparently the patient was discharged and has been following with Dr. Melissa and she has been getting chemotherapy, today she went for evaluation and the patient had episode of sinus tachycardia and she was quite dehydrated she ended up referred to the emergency perforated evaluation she was found to have hypomagnesemia and acute kidney injury due to dehydration she was started on IV fluid resuscitation she was admitted to hospital for evaluation and the hematology oncology consultation was obtained from Dr. Davis. Repeat lab work showed WBC 1.6, chloride 104, BUN 11 and creatinine 0.75 and magnesium 2.2. Patient is feeling much improved. Heart rate is running 85- 100. Patient will be discharged home today in stable condition. Discharge diagnoses: 1. Pre-renal azotemia. 2. Hypomagnesemia. 3. Hypertension and hypertensive cardiovascular disease. 4. Hyperlipidemia. 5. Hypothyroidism. 6. Vitamin D deficiency. 7. History of breast cancer status post left lumpectomy with radiation and 5 year hormonal therapy. 8. Hoarseness secondary to vocal cord paralysis. Discharge plan: Return home Impression and plan of care have been directed as dictated by the signing physician. Ashlyn Jay nurse practitioner acting as scribe for signing physician. Cc: Dr. Collins Bruno Patient Condition at Discharge: Good Plan - Discharge Summary Discharge Medication List Acetaminophen [Tylenol] 500 mg PO Q4-6H PRN 08/08/16 [History] Levothyroxine Sodium [Synthroid] 25 mcg PO DAILY 08/08/16 [History] Omeprazole [PriLOSEC] 20 mg PO AC-BRKFST 08/08/16 [History] Simvastatin [Zocor] 20 mg PO HS 08/08/16 [History] amLODIPine BESYLATE [Norvasc] 5 mg PO DAILY 08/08/16 [History] Budesonide-Formot 160-4.5 Mcg [Symbicort 160-4.5 Mcg Inhaler] 2 puff INHALATION RT-BID 09/18/16 [History] ALPRAZolam [Xanax] 0.5 mg PO DAILY PRN 10/16/16 [History] Ipratropium-Albuterol Nebulize [Duoneb 0.5 mg-3 mg/3 ml Soln] 3 ml INHALATION RT -TID PRN 10/16/16 [History] Ondansetron [Zofran] 4 mg PO TID 10/16/16 [History] Follow up Appointment(s)/Referral(s): Collins Bruno DO [Primary Care Provider] - 1 Week (office will call with appointment date adn time ) Patient Instructions/Handouts: Hypomagnesemia (DC), Tachycardia (GEN) Activity/Diet/Wound Care/Special Instructions: Activity: As tolerated Diet: Regular Discharge Disposition: HOME SELF-CARE
== END 2016-10-17 16:00 | disposition home or self-care (01) | DRG 641 ==
LOC: EC 14:21 → 5ONC 16:12
PROVIDERS: ADMIT Internal Medicine; ATTEND Internal Medicine
DX: E83.42 Hypomagnesemia (principal); C34.90 Malignant neoplasm of unspecified part of unspecified bronchus or lung; J38.01 Paralysis of vocal cords and larynx, unilateral; J44.9 Chronic obstructive pulmonary disease, unspecified; I11.9 Hypertensive heart disease without heart failure; E86.0 Dehydration; E55.9 Vitamin D deficiency, unspecified; E03.9 Hypothyroidism, unspecified; E78.5 Hyperlipidemia, unspecified; K21.9 Gastro-esophageal reflux disease without esophagitis; M19.90 Unspecified osteoarthritis, unspecified site; R79.89 Other specified abnormal findings of blood chemistry; R00.0 Tachycardia, unspecified; Z79.899 Other long term (current) drug therapy; Z85.3 Personal history of malignant neoplasm of breast; Z87.891 Personal history of nicotine dependence; Z96.652 Presence of left artificial knee joint; Z88.0 Allergy status to penicillin
CPT/HCPCS: 36415; 71020; 71260; 80053; 81001; 82550; 82553; 82565; 83735; 84100; 84443; 84484; 84520; 85025; 85610; 85730; 94640; 94760; 96361; 96365; 99285

== ENCOUNTER 2016-10-25 10:46 | Emergency (ER) | payer MEDICARE ==
[2016-10-25] MEDS ORDERED: IPRATROPIUM-ALBUTEROL 3 ML NEB INHALATION STA (10:57)
[2016-10-25] MEDS ORDERED: SODIUM CHLORIDE 0.9% 1,000 ML IV STA (10:57)
--- NOTE | 2016-10-25 10:59 | ED ---
General Adult HPI - General Chief complaint: Shortness of Breath Stated complaint: difficulty breathing Time Seen by Provider: 10/25/16 10:54 Source: patient, family, RN notes reviewed Mode of arrival: ambulatory Limitations: no limitations - History of Present Illness Initial comments: Patient is a pleasant 71-year-old female patient any to emergency department with difficulty in breathing. Onset of symptoms was just yesterday. Symptoms have worsened today. Patient does have occasional cough that is nonproductive. Patient also has a history of COPD and lung cancer. Patient recently finished radiation and now is on chemotherapy. Patient has had problems with her magnesium level being low recently. No leg pain or leg swelling. No fever. - Related Data Home Medications Medication Instructions Recorded Confirmed Acetaminophen [Tylenol] 500 mg PO Q4-6H PRN 08/08/16 10/25/16 Levothyroxine Sodium [Synthroid] 25 mcg PO DAILY 08/08/16 10/25/16 Omeprazole [PriLOSEC] 20 mg PO AC-BRKFST 08/08/16 10/25/16 Simvastatin [Zocor] 20 mg PO HS 08/08/16 10/25/16 amLODIPine BESYLATE [Norvasc] 5 mg PO DAILY 08/08/16 10/25/16 Budesonide-Formot 160-4.5 Mcg 2 puff INHALATION RT-BID 09/18/16 10/25/16 [Symbicort 160-4.5 Mcg Inhaler] ALPRAZolam [Xanax] 0.5 mg PO DAILY PRN 10/16/16 10/25/16 Ipratropium-Albuterol Nebulize 3 ml INHALATION RT-TID PRN 10/16/16 10/25/16 [Duoneb 0.5 mg-3 mg/3 ml Soln] Ondansetron [Zofran] 4 mg PO TID PRN 10/16/16 10/25/16 Allergies Allergy/AdvReac Type Severity Reaction Status Date / Time Penicillins Allergy Rash/Hives Verified 10/25/16 12:45 Review of Systems ROS Statement: Those systems with pertinent positive or pertinent negative responses have been documented in the HPI. ROS Other: All systems not noted in ROS Statement are negative. Constitutional: Denies: fever, chills Eyes: Denies: eye pain ENT: Denies: as per HPI Respiratory: Reports: cough, dyspnea Cardiovascular: Denies: chest pain Endocrine: Reports: fatigue Gastrointestinal: Denies: abdominal pain Genitourinary: Denies: dysuria Musculoskeletal: Denies: back pain Skin: Denies: rash Neurological: Denies: headache Past Medical History Past Medical History: Cancer, GERD/Reflux, Hyperlipidemia, Hypertension, Osteoarthritis (OA), Thyroid Disorder Additional Past Medical History / Comment(s): left breast cancer, COPD, adenocarcinoma of the lung-"pt stated stage 4" finished 10 radiation tx and had first chemo tx 10-09-16,home 02 2 liters nc/ atc, hoarseness thought likely secondary to vocal cord paralysis on the left, intermittent lichen planus(none current) History of Any Multi-Drug Resistant Organisms: None Reported Past Surgical History: Cholecystectomy, Orthopedic Surgery Additional Past Surgical History / Comment(s): left total knee replacement 2012 , gall bladder 2007, left breat lumpectomy in 1999 with radiation treatments and lymph node removal on left side, EGD and colonoscopy that showed 3 polyps, left supraclavicular lymph node biopsy(pt stated was positive). Past Anesthesia/Blood Transfusion Reactions: No Reported Reaction Additional Past Anesthesia/Blood Transfusion Reaction / Comment(s): blood transfusion when she has her children-no ractions to the blood Past Psychological History: No Psychological Hx Reported Smoking Status: Former smoker Past Alcohol Use History: Occasional Additional Past Alcohol Use History / Comment(s): started smoking 1960,quit smoking 12 years ago(2004), was smoking 1 ppd. Past Drug Use History: None Reported - Past Family History Mother Family Medical History: Cancer Additional Family Medical History / Comment(s): bowel Father Family Medical History: CVA/TIA Brother(s) Family Medical History: No Reported History Sister(s) Family Medical History: No Reported History Daughter(s) Family Medical History: No Reported History Son(s) Family Medical History: No Reported History General Exam Limitations: no limitations General appearance: alert Head exam: Present: atraumatic Eye exam: Present: normal appearance, PERRL ENT exam: Present: normal oropharynx Neck exam: Present: normal inspection Respiratory exam: Present: respiratory distress, wheezes, accessory muscle use, decreased breath sounds Cardiovascular Exam: Present: tachycardia GI/Abdominal exam: Present: soft. Absent: tenderness Extremities exam: Present: normal inspection. Absent: pedal edema, calf tenderness Neurological exam: Present: alert Psychiatric exam: Present: normal affect, normal mood Skin exam: Absent: rash Course Vital Signs 10/25/16 10/25/16 10/25/16 10:48 11:30 11:42 Temperature 97.5 F L Pulse Rate 124 H 100 103 H Respiratory 24 Rate Blood Pressure 122/70 O2 Sat by Pulse 93 L Oximetry 10/25/16 11:54 Temperature Pulse Rate 101 H Respiratory 17 Rate Blood Pressure 154/76 O2 Sat by Pulse 95 Oximetry EKG Findings - EKG Comments: EKG Findings:: Sinus tachycardia 105. Normal intervals. Normal axis. Low QRS voltage. No acute ST change. Medical Decision Making - Medical Decision Making Patient reevaluated and resting comfortably in bed. Lungs with minimal wheezing. Patient denies any dyspnea at this time. Magnesium is decreased in this will be replaced. Case was discussed in detail with Dr. Davis who is familiar with this patient. He does recommend replacement of magnesium and discharged. Patient is comfortable with discharge. - Lab Data Result diagrams: 10/25/16 11:00 10/25/16 11:00 Lab Results 10/25/16 10/25/16 Range/Units 11:00 11:00 WBC 4.2 (3.8-10.6) k/uL RBC 4.39 (3.80-5.40) m/uL Hgb 12.7 (11.4-16.0) gm/dL Hct 40.0 (34.0-46.0) % MCV 91.3 (80.0-100.0) fL MCH 28.9 (25.0-35.0) pg MCHC 31.6 (31.0-37.0) g/dL RDW 14.4 (11.5-15.5) % Plt Count 308 (150-450) k/uL Neutrophils % 72 % Lymphocytes % 15 % Monocytes % 7 % Eosinophils % 2 % Basophils % 0 % Neutrophils # 3.0 (1.3-7.7) k/uL Lymphocytes # 0.6 L (1.0-4.8) k/uL Monocytes # 0.3 (0-1.0) k/uL Eosinophils # 0.1 (0-0.7) k/uL Basophils # 0.0 (0-0.2) k/uL Sodium 141 (137-145) mmol/L Potassium 4.6 (3.5-5.1) mmol/L Chloride 101 (98-107) mmol/L Carbon Dioxide 27 (22-30) mmol/L Anion Gap 13 mmol/L BUN 9 (7-17) mg/dL Creatinine 0.71 (0.52-1.04) mg/dL Est GFR (MDRD) Af Amer >60 (>60 ml/min/1.73 sqM) Est GFR (MDRD) Non-Af >60 (>60 ml/min/1.73 sqM) Glucose 104 H (74-99) mg/dL Calcium 9.5 (8.4-10.2) mg/dL Magnesium 1.2 L (1.6-2.3) mg/dL Total Bilirubin 0.5 (0.2-1.3) mg/dL AST 23 (14-36) U/L ALT 32 (9-52) U/L Alkaline Phosphatase 82 (38-126) U/L Total Protein 6.7 (6.3-8.2) g/dL Albumin 4.0 (3.5-5.0) g/dL - Radiology Data Radiology results: image reviewed (Chest x-ray shows left upper lobe mass, less well visualized. Patchy infiltrates lower lung fischer consider atelectasis.) Disposition Clinical Impression: Dyspnea, Hypomagnesemia Disposition: HOME SELF-CARE Condition: Stable Instructions: Dyspnea (ED), Hypomagnesemia (ED) Additional Instructions: Please follow-up with Dr. Davis and Dr. Hassan in the beginning of the week. Please have your magnesium checked again in the beginning of the week. Please continue magnesium 400 mg 3 times daily as prescribed. Return for difficulty in breathing, fevers, weakness, worsening symptoms or other concerns. Referrals: Collins Bruno DO [Primary Care Provider] - 1-2 days Time of Disposition: 13:07
[2016-10-25 11:23] LABS: Basophils % (A) 0 %; CH 29.3; CHCM 32.2; Eosinophils # (A) 0.1 k/uL (0-0.7); Eosinophils % (A) 2 %; HDW 2.25; HGB 12.7 gm/dL (11.4-16.0); Luc # (Auto) 0.13; Luc % (Auto) 3; Lymphocytes # (A) 0.6 k/uL (1.0-4.8); Lymphocytes % (A) 15 %; MCH 28.9 pg (25.0-35.0); MCHC 31.6 g/dL (31.0-37.0); MCV 91.3 fL (80.0-100.0); Mean Platelet Volume 6.4; Monocytes # (A) 0.3 k/uL (0-1.0); Monocytes % (A) 7 %; Neutrophils % (A) 72 %; RBC 4.39 m/uL (3.80-5.40); RDW 14.4 % (11.5-15.5); WBC 4.2 k/uL (3.8-10.6); WBC (Perox) 4.22
[2016-10-25 11:32] LABS: ALT 32 U/L (9-52); AST 23 U/L (14-36); Alkaline Phosphatase 82 U/L (38-126); Anion Gap 13 mmol/L; Blood Urea Nitrogen 9 mg/dL (7-17); Calcium 9.5 mg/dL (8.4-10.2); Carbon Dioxide 27 mmol/L (22-30); Chloride 101 mmol/L (98-107); Glucose 104 mg/dL (74-99); Magnesium 1.2 mg/dL (1.6-2.3); Non-African American GFR(MDRD) >60 (>60 ml/min/1.73 sqM); Potassium 4.6 mmol/L (3.5-5.1); Sodium 141 mmol/L (137-145); Total Bilirubin 0.5 mg/dL (0.2-1.3); Total Protein 6.7 g/dL (6.3-8.2)
--- NOTE | 2016-10-25 11:39 | XR ---
EXAMINATION TYPE: XR chest 2V DATE OF EXAM: 10/25/2016 11:24 AM COMPARISON: 10/16/2016 INDICATION: Difficulty breathing history lung cancer TECHNIQUE: Frontal and lateral views of the chest are obtained. FINDINGS: The heart size is normal. The pulmonary vasculature is normal. There are patchy infiltrates within the bilateral lungs. There is slightly increased. Correlate for a telectasis. IMPRESSION: 1. Increasing patchy infiltrates especially through the lower lung fischer compared to prior study. Co nsider atelectasis. 2. Left upper lobe mass is less well visualized on the current examination.
[2016-10-25 11:55] VITALS: RESP 17
[2016-10-25] MEDS ORDERED: MAGNESIUM OXIDE 400 MG TAB PO STA (12:30)
[2016-10-25] MEDS: MAGNESIUM SULFATE-D5W PMX 1 GM in DEXTROSE/WATER 1 100ML.BAG IVPB SCH ×2 (13:26→14:34)
[2016-10-25 15:45] VITALS: BP 124/62; PULSE 101; TEMP 98.6
== END 2016-10-25 15:52 | disposition home or self-care (01) ==
LOC: EC 10:46
DX: J44.9 Chronic obstructive pulmonary disease, unspecified (principal); E83.42 Hypomagnesemia; C34.12 Malignant neoplasm of upper lobe, left bronchus or lung; I10 Essential (primary) hypertension; E07.9 Disorder of thyroid, unspecified; E78.5 Hyperlipidemia, unspecified; Z87.891 Personal history of nicotine dependence; Z88.0 Allergy status to penicillin; Z79.899 Other long term (current) drug therapy; Z79.51 Long term (current) use of inhaled steroids; Z99.81 Dependence on supplemental oxygen; Z85.3 Personal history of malignant neoplasm of breast
CPT/HCPCS: 99285; 96365; 96361 ×3; 36415; 94640; 93005; 80053; 83735; 85025; 71020; J3475

== ENCOUNTER 2016-10-28 12:55 | Emergency (ER) | payer MEDICARE ==
[2016-10-28] MEDS ORDERED: SODIUM CHLORIDE 0.9% 500 ML IV STA (13:13)
--- NOTE | 2016-10-28 13:16 | ED ---
General Adult HPI - General Chief complaint: Shortness of Breath Stated complaint: SOB, back pain Time Seen by Provider: 10/28/16 13:00 Source: patient, RN notes reviewed Mode of arrival: wheelchair Limitations: no limitations - History of Present Illness Initial comments: This is a 71-year-old female with history of lung cancer and is undergoing chemotherapy and has had radiation. Patient states she has also been hypomagnesemic recently and has had to be seen twice for that. Patient comes in today she has had an increased cough and short of breath. Patient denies any chest pain or palpitations. Patient denies any fever or chills. Patient states she was go for chemo tomorrow but she so short of breath she doesn't think she will ago until she gets this resolved. Patient denies any abdominal pain patient denies nausea vomiting or diarrhea. Patient states she has some mid thoracic back pain. Patient states she's been no injury or trauma but that is been ongoing for about a month. Patient denies headache patient denies lightheadedness dizziness or near syncopal episode. - Related Data Home Medications Medication Instructions Recorded Confirmed Acetaminophen [Tylenol] 500 mg PO Q4-6H PRN 08/08/16 10/28/16 Levothyroxine Sodium [Synthroid] 25 mcg PO DAILY 08/08/16 10/28/16 Omeprazole [PriLOSEC] 20 mg PO AC-BRKFST 08/08/16 10/28/16 Simvastatin [Zocor] 20 mg PO HS 08/08/16 10/28/16 amLODIPine BESYLATE [Norvasc] 5 mg PO DAILY 08/08/16 10/28/16 Budesonide-Formot 160-4.5 Mcg 2 puff INHALATION RT-BID 09/18/16 10/28/16 [Symbicort 160-4.5 Mcg Inhaler] ALPRAZolam [Xanax] 0.5 mg PO DAILY PRN 10/16/16 10/28/16 Ipratropium-Albuterol Nebulize 3 ml INHALATION RT-TID PRN 10/16/16 10/28/16 [Duoneb 0.5 mg-3 mg/3 ml Soln] Ondansetron [Zofran] 4 mg PO TID PRN 10/16/16 10/28/16 Acetaminophen-Codeine 300-30mg 1 tab PO Q8H PRN 10/28/16 10/28/16 [Tylenol #3] Clindamycin HCl [Cleocin] 300 mg PO Q8H 10/28/16 10/28/16 Docusate Sodium [Dok] 100 mg PO DAILY PRN 10/28/16 10/28/16 Folic Acid 1 mg PO DAILY 10/28/16 10/28/16 Magnesium Oxide [Magox 400] 400 mg PO TID 10/28/16 10/28/16 Metoprolol Tartrate [Lopressor] 25 mg PO BID 10/28/16 10/28/16 Allergies Allergy/AdvReac Type Severity Reaction Status Date / Time Penicillins Allergy Rash/Hives Verified 10/28/16 14:26 Review of Systems ROS Statement: Those systems with pertinent positive or pertinent negative responses have been documented in the HPI. ROS Other: All systems not noted in ROS Statement are negative. Past Medical History Past Medical History: Cancer, GERD/Reflux, Hyperlipidemia, Hypertension, Osteoarthritis (OA), Thyroid Disorder Additional Past Medical History / Comment(s): left breast cancer, COPD, adenocarcinoma of the lung-"pt stated stage 4" finished 10 radiation tx and had first chemo tx 10-09-16,home 02 2 liters nc/ atc, hoarseness thought likely secondary to vocal cord paralysis on the left, intermittent lichen planus(none current) History of Any Multi-Drug Resistant Organisms: None Reported Past Surgical History: Breast Surgery, Cholecystectomy, Orthopedic Surgery Additional Past Surgical History / Comment(s): left total knee replacement 2012 , gall bladder 2007, left breat lumpectomy in 1999 with radiation treatments and lymph node removal on left side, EGD and colonoscopy that showed 3 polyps, left supraclavicular lymph node biopsy(pt stated was positive). Past Anesthesia/Blood Transfusion Reactions: No Reported Reaction Additional Past Anesthesia/Blood Transfusion Reaction / Comment(s): blood transfusion when she has her children-no ractions to the blood Past Psychological History: No Psychological Hx Reported Smoking Status: Former smoker Past Alcohol Use History: Occasional Additional Past Alcohol Use History / Comment(s): started smoking 1960,quit smoking 12 years ago(2004), was smoking 1 ppd. Past Drug Use History: None Reported - Past Family History Mother Family Medical History: Cancer Additional Family Medical History / Comment(s): bowel Father Family Medical History: CVA/TIA Brother(s) Family Medical History: No Reported History Sister(s) Family Medical History: No Reported History Daughter(s) Family Medical History: No Reported History Son(s) Family Medical History: No Reported History General Exam - General Exam Comments Initial Comments: GENERAL: Patient is well-developed and well-nourished. Patient is nontoxic and well- hydrated and is in mild distress. ENT: Neck is soft and supple. No significant lymphadenopathy is noted. Oropharynx is clear. Moist mucous membranes. Neck has full range of motion without eliciting any pain. EYES: The sclera were anicteric and conjunctiva were pink and moist. Extraocular movements were intact and pupils were equal round and reactive to light. Eyelids were unremarkable. PULMONARY: Right base has some crackles occasionally CARDIOVASCULAR: Patient is tachycardic at 120 beats a minute ABDOMEN: Soft and nontender with normal bowel sounds. No palpable organomegaly was noted. There is no palpable pulsatile mass. SKIN: Skin is clear with no lesions or rashes and otherwise unremarkable. NEUROLOGIC: Patient is alert and oriented x3. Cranial nerves II through XII are grossly intact. Motor and sensory are also intact. Normal speech, volume and content. Symmetrical smile. . MUSCULOSKELETAL: Normal extremities with adequate strength and full range of motion. LYMPHATICS: No significant lymphadenopathy is noted PSYCHIATRIC: Normal psychiatric evaluation. Normal interpersonal interactions appears functionally intact in deals appropriately with others. No signs of depression. Limitations: no limitations Course Vital Signs 10/28/16 10/28/16 10/28/16 12:58 13:53 14:50 Temperature 97.8 F Pulse Rate 123 H 105 H Respiratory 18 18 20 Rate Blood Pressure 119/62 133/74 O2 Sat by Pulse 92 L 92 L Oximetry 10/28/16 10/28/16 10/28/16 15:04 15:15 15:39 Temperature Pulse Rate 106 H 108 H 115 H Respiratory 18 Rate Blood Pressure 121/63 O2 Sat by Pulse 94 L Oximetry Medical Decision Making - Medical Decision Making EKG shows sinus tachycardia at 100 bpm AR interval is 126 QRS is 72 QT interval is 324 QTC is 440 per patient's EKG shows no ST segment elevation or depression or T wave abnormalities are noted Spoke with Dr. Susan Davis felt as though the patient could be sent home and follow-up with him. - Lab Data Result diagrams: 10/28/16 13:35 10/28/16 13:35 Lab Results 10/28/16 10/28/16 10/28/16 Range/Units 13:35 13:35 13:35 WBC 4.1 (3.8-10.6) k/uL RBC 4.22 (3.80-5.40) m/uL Hgb 12.2 (11.4-16.0) gm/dL Hct 38.0 (34.0-46.0) % MCV 90.1 (80.0-100.0) fL MCH 28.9 (25.0-35.0) pg MCHC 32.0 (31.0-37.0) g/dL RDW 14.6 (11.5-15.5) % Plt Count 427 (150-450) k/uL Neutrophils % 70 % Lymphocytes % 16 % Monocytes % 8 % Eosinophils % 3 % Basophils % 1 % Neutrophils # 2.9 (1.3-7.7) k/uL Lymphocytes # 0.6 L (1.0-4.8) k/uL Monocytes # 0.3 (0-1.0) k/uL Eosinophils # 0.1 (0-0.7) k/uL Basophils # 0.0 (0-0.2) k/uL PT (9.0-12.0) sec INR (<1.1) APTT (22.0-30.0) sec Sodium 139 (137-145) mmol/L Potassium 4.3 (3.5-5.1) mmol/L Chloride 105 (98-107) mmol/L Carbon Dioxide 26 (22-30) mmol/L Anion Gap 8 mmol/L BUN 9 (7-17) mg/dL Creatinine 0.57 (0.52-1.04) mg/dL Est GFR (MDRD) Af Amer >60 (>60 ml/min/1.73 sqM) Est GFR (MDRD) Non-Af >60 (>60 ml/min/1.73 sqM) Glucose 93 (74-99) mg/dL Plasma Lactic Acid Juan Alberto (0.7-2.0) mmol/L Calcium 8.0 L (8.4-10.2) mg/dL Magnesium 1.4 L (1.6-2.3) mg/dL Total Bilirubin 0.5 (0.2-1.3) mg/dL AST 19 (14-36) U/L ALT 24 (9-52) U/L Alkaline Phosphatase 59 (38-126) U/L Total Creatine Kinase 30 (30-135) U/L CK-MB (CK-2) 0.4 (0.0-2.4) ng/mL CK-MB (CK-2) Rel Index 1.3 Troponin I 0.015 (0.000-0.034) ng/mL NT-Pro-B Natriuret Pep pg/mL Total Protein 5.6 L (6.3-8.2) g/dL Albumin 3.1 L (3.5-5.0) g/dL 10/28/16 10/28/16 10/28/16 Range/Units 13:35 13:35 13:35 WBC (3.8-10.6) k/uL RBC (3.80-5.40) m/uL Hgb (11.4-16.0) gm/dL Hct (34.0-46.0) % MCV (80.0-100.0) fL MCH (25.0-35.0) pg MCHC (31.0-37.0) g/dL RDW (11.5-15.5) % Plt Count (150-450) k/uL Neutrophils % % Lymphocytes % % Monocytes % % Eosinophils % % Basophils % % Neutrophils # (1.3-7.7) k/uL Lymphocytes # (1.0-4.8) k/uL Monocytes # (0-1.0) k/uL Eosinophils # (0-0.7) k/uL Basophils # (0-0.2) k/uL PT 10.3 (9.0-12.0) sec INR 1.0 (<1.1) APTT 19.7 L (22.0-30.0) sec Sodium (137-145) mmol/L Potassium (3.5-5.1) mmol/L Chloride (98-107) mmol/L Carbon Dioxide (22-30) mmol/L Anion Gap mmol/L BUN (7-17) mg/dL Creatinine (0.52-1.04) mg/dL Est GFR (MDRD) Af Amer (>60 ml/min/1.73 sqM) Est GFR (MDRD) Non-Af (>60 ml/min/1.73 sqM) Glucose (74-99) mg/dL Plasma Lactic Acid Juan Alberto 2.0 (0.7-2.0) mmol/L Calcium (8.4-10.2) mg/dL Magnesium (1.6-2.3) mg/dL Total Bilirubin (0.2-1.3) mg/dL AST (14-36) U/L ALT (9-52) U/L Alkaline Phosphatase (38-126) U/L Total Creatine Kinase (30-135) U/L CK-MB (CK-2) (0.0-2.4) ng/mL CK-MB (CK-2) Rel Index Troponin I (0.000-0.034) ng/mL NT-Pro-B Natriuret Pep 125 pg/mL Total Protein (6.3-8.2) g/dL Albumin (3.5-5.0) g/dL Disposition Clinical Impression: Hypomagnesemia, Dyspnea Disposition: HOME SELF-CARE Condition: Good Instructions: Dyspnea (ED) Referrals: Collins Bruno DO [Primary Care Provider] - 1-2 days Time of Disposition: 16:17
[2016-10-28 13:58] LABS: Basophils % (A) 1 %; CH 29.5; CHCM 32.9; Eosinophils # (A) 0.1 k/uL (0-0.7); Eosinophils % (A) 3 %; HDW 2.38; HGB 12.2 gm/dL (11.4-16.0); Luc # (Auto) 0.13; Luc % (Auto) 3; Lymphocytes # (A) 0.6 k/uL (1.0-4.8); Lymphocytes % (A) 16 %; MCH 28.9 pg (25.0-35.0); MCV 90.1 fL (80.0-100.0); Mean Platelet Volume 6.6; Monocytes # (A) 0.3 k/uL (0-1.0); Monocytes % (A) 8 %; Neutrophils # (A) 2.9 k/uL (1.3-7.7); Neutrophils % (A) 70 %; RBC 4.22 m/uL (3.80-5.40); RDW 14.6 % (11.5-15.5); WBC 4.1 k/uL (3.8-10.6); WBC (Perox) 4.43
[2016-10-28 14:12] LABS: Prothrombin Time 10.3 sec (9.0-12.0)
[2016-10-28 14:16] LABS: Anion Gap 8 mmol/L; Carbon Dioxide 26 mmol/L (22-30); Chloride 105 mmol/L (98-107); Glucose 93 mg/dL (74-99); Non-African American GFR(MDRD) >60 (>60 ml/min/1.73 sqM); Sodium 139 mmol/L (137-145); Total Bilirubin 0.5 mg/dL (0.2-1.3); Total Protein 5.6 g/dL (6.3-8.2)
--- NOTE | 2016-10-28 14:16 | XR ---
EXAMINATION TYPE: XR chest 2V DATE OF EXAM: 10/28/2016 2:05 PM COMPARISON: 10/25/2016 TECHNIQUE: PA and lateral views submitted. HISTORY: Difficulty breathing FINDINGS: 2 bilateral infiltrate and interstitial changes are stable. There is no pneumothorax. Arthropathy of the shoulders noted. Atherosclerotic change of the aorta. Underlying COPD suspected. D egenerative change of the spine seen. IMPRESSION: 1. COPD with stable bilateral small effusion and basilar infiltrate. Mild venous congestion superimpo sed on a background of interstitial chronic lung disease is suspected. 2. Upper lobe mass noted by previous CT scan again noted.
[2016-10-28 14:20] LABS: Partial Thromboplastin Time 19.7 sec (22.0-30.0)
[2016-10-28 14:29] LABS: AST 19 U/L (14-36); Alkaline Phosphatase 59 U/L (38-126); Blood Urea Nitrogen 9 mg/dL (7-17); Potassium 4.3 mmol/L (3.5-5.1)
[2016-10-28 14:30] LABS: ALT 24 U/L (9-52); Magnesium 1.4 mg/dL (1.6-2.3)
[2016-10-28 14:33] LABS: Creatine Kinase MB 0.4 ng/mL (0.0-2.4); Troponin I 0.015 ng/mL (0.000-0.034)
[2016-10-28] MEDS ORDERED: IPRATROPIUM 0.5 MG/2.5 ML NEBU INHALATION STA (14:55)
[2016-10-28] MEDS ORDERED: IPRATROPIUM-ALBUTEROL 3 ML NEB INHALATION STA (15:02)
[2016-10-28] MEDS ORDERED: MAGNESIUM SULFATE-D5W PMX 1 GM in DEXTROSE/WATER 1 100ML.BAG IVPB ONE (15:30)
[2016-10-28 15:40] VITALS: RESP 18
[2016-10-28 16:54] VITALS: BP 138/87; PULSE 67; TEMP 97.1
== END 2016-10-28 16:54 | disposition home or self-care (01) ==
LOC: EC 12:55
DX: R06.00 Dyspnea, unspecified (principal); K21.9 Gastro-esophageal reflux disease without esophagitis; E78.5 Hyperlipidemia, unspecified; I10 Essential (primary) hypertension; M19.90 Unspecified osteoarthritis, unspecified site; E07.9 Disorder of thyroid, unspecified; J44.9 Chronic obstructive pulmonary disease, unspecified; R00.0 Tachycardia, unspecified; E83.42 Hypomagnesemia; Z87.891 Personal history of nicotine dependence; Z85.3 Personal history of malignant neoplasm of breast; Z85.118 Personal history of other malignant neoplasm of bronchus and lung; Z80.9 Family history of malignant neoplasm, unspecified; Z90.12 Acquired absence of left breast and nipple; Z88.0 Allergy status to penicillin; Z79.899 Other long term (current) drug therapy; Z79.51 Long term (current) use of inhaled steroids; Z79.52 Long term (current) use of systemic steroids; Z92.3 Personal history of irradiation; Z92.21 Personal history of antineoplastic chemotherapy
CPT/HCPCS: 99285 ×2; 96365 ×2; 96361 ×3; 36415; 94640; 93005; 83880; 80053; 82550; 82553; 83605; 83735; 84484; 85025; 85610; 85730; 87040; 71020; J3475

== ENCOUNTER → 2016-10-29 | Outpatient (CLI) | payer MEDICARE ==
[2016-10-29 11:53] LABS: Blood Urea Nitrogen 10 mg/dL (7-17); Non-African American GFR(MDRD) >60 (>60 ml/min/1.73 sqM)
--- NOTE | 2016-10-29 13:07 | CT ---
CT CHEST FOR PULMONARY EMBOLISM. EXAMINATION TYPE: CT angio chest DATE OF EXAM: 10/29/2016 12:28 PM INDICATION: Lung cancer. SOB. Tachycardia. CT DLP: 191.50 mGycm, Automated exposure control for dose reduction was used. CONTRAST: Patient injected with 100 ml mL of Omnipaque 350. COMPARISON: 10/13/2016 TECHNIQUE: CT of the chest is performed on a spiral scan at 2 mm thick sections. Study is performed with intravenous contrast timed for evaluation for pulmonary embolism. This will limit additional po rtions of the evaluation. 3-D MIP images reconstructed by the technologist are reviewed on the compu ter in the coronal and sagittal planes. FINDINGS: No persistent filling defects are evident to suggest an acute pulmonary embolism. There multiple enlarged mediastinal lymph nodes present including the superior mediastinum, pretrache al space measuring 1.8 cm, aortopulmonic window measuring 1.4 cm. Subcarinal region measuring 2.1 cm and right hilar region measuring 2.0 cm. 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 Pericardial effusion is present which may be increasing. Multiple bilateral pulmonary nodules are present The ascending aorta diameter at the level of the main pulmonary artery is 2.8 cm. The main pulmonary artery diameter at the bifurcation is 2.6 cm. Small left and minimal right pleural effusions are present. Limited CT section through the upper abdomen are unremarkable. IMPRESSIONS: 1. No acute pulmonary embolism. 2. Multiple lung nodules and multiple enlarged lymph nodes.
== END | disposition home or self-care (01) ==
LOC: RADCTMAIN 11:11
PROVIDERS: ATTEND Internal Medicine Hematology & Oncology
DX: C34.90 Malignant neoplasm of unspecified part of unspecified bronchus or lung (principal); R59.0 Localized enlarged lymph nodes
CPT/HCPCS: 82565; 84520; 71275; 36415; Q9967; 83735

== ENCOUNTER 2016-11-26 15:38 | Inpatient (IN) | payer MEDICARE ==
[2016-11-26] MEDS ORDERED: SODIUM CHLORIDE 0.9% 1,000 ML IV ONE (16:22)
[2016-11-26] MEDS ORDERED: ONDANSETRON 4 MG/2 ML VIAL IVP PRN (16:24)
[2016-11-26] MEDS ORDERED: Acetaminophen-Codeine 300-30mg TAB PO PRN (16:25)
[2016-11-26] MEDS ORDERED: ALPRAZolam 0.5 MG TAB PO PRN (16:26)
--- NOTE | 2016-11-26 17:42 | P.HPIM ---
History of Present Illness H&P Date: 11/26/16 Chief Complaint: Acute COPD exacerbation/ This is a 71-year-old female patient of Dr. Bruno has a recent diagnosis of a lung mass which is considered to be of a primary lung. Her history dates back to around a few months back when she started having symptoms of increased cough and shortness of breath and she was given several rounds of antibiotics and ultimately she had a CAT scan of the chest which showed a masslike consolidation in the lingula in addition to left hilar, subcarinal, right hilar and an left supraclavicular lymphadenopathy. Based on this, the patient was sent for a fine-needle aspirate of the supraclavicular lymph node and a diagnosis was consistent with adenocarcinoma and the pathologist favored a GI origin rather than lungs. A PET scan was also completed which also confirmed the findings with her was a left upper lobe mass extending to the left hilar and supraclavicular area with intense uptake consistent with carcinoma. Based on the path report, the patient was referred to [facility] for a second opinion. The patient was able to see Dr. Casie Montero and she is seeing Dr. Davis locally. In addition, the mediastinal mass is causing mass effect on the mid esophagus causing proximal esophageal dilatation. Apparently the patient was discharged and has been following with Dr. Davis and she has been getting chemotherapy, her last chemotherapy in the form of carboplatin and Alimta was on I believe this was her fourth cycle and on Thursday developed to have significant dry heaving nausea and vomiting along with diarrhea for which she has been getting Lomotil, patient was supposed to see her in college just today and she was referred from the office to the hospital as a direct admit because of significant dehydration as well as significant COPD exacerbation that failed outpatient management and the patient was admitted to the hospital under were service, patient was given a liter of normal saline and she'll be placed on normal saline at 125 mL an hour after that she will be started on IV Solu- Medrol as well as nebulizer treatment [id number] oxygen support and continue conservative management as well. Patient did receive 10 courses of radiation therapy prior to her chemotherapy. Review of Systems Constitutional: Reports chills, Reports fatigue, Reports lethargy, Reports malaise, Reports weakness, Reports weight loss Eyes: denies blurred vision, denies bulging eye, denies decreased vision Ears: deny: decreased hearing Ears, nose, mouth and throat: Denies dysphagia, Denies neck lump, Denies sore throat, Denies vertigo Cardiovascular: Reports decreased exercise tolerance, Reports dyspnea on exertion, Reports high blood pressure, Reports shortness of breath, Denies chest pain, Denies phlebitis, Denies rapid heart beat, Denies syncope Respiratory: Reports congestion, Reports cough, Reports cough with sputum, Reports home oxygen, Reports wheezing, Denies sleep apnea, Denies snoring Gastrointestinal: Reports diarrhea, Reports dyspepsia, Reports loss of appetite , Reports nausea, Reports vomiting, Denies abdominal pain, Denies bloating, Denies BRBPR, Denies heartburn, Denies hematemesis, Denies melena Genitourinary: Denies dysuria, Denies hematuria Menstruation: Reports postmenopausal Musculoskeletal: Denies myalgias Musculoskeletal: absent: ankle pain, ankle stiffness, ankle swelling, elbow pain , elbow stiffness, elbow swelling, foot pain, foot stiffness, foot swelling, hand pain, hand stiffness, hand swelling, hip pain, hip stiffness, hip swelling , knee pain, knee stiffness, knee swelling, shoulder pain, shoulder stiffness, shoulder swelling, wrist pain, wrist stiffness, wrist swelling Integumentary: Denies pruritus, Denies rash Neurological: Denies numbness, Denies weakness Psychiatric: Denies anxiety, Denies depression Endocrine: Denies fatigue, Denies weight change Past Medical History Past Medical History: Cancer, GERD/Reflux, Hyperlipidemia, Hypertension, Osteoarthritis (OA), Thyroid Disorder Additional Past Medical History / Comment(s): left breast cancer, COPD, adenocarcinoma of the lung-"pt stated stage 4" finished 10 radiation tx. RECEIVING chemo HAD A TX ON tx 11-20-16,home 02 2 liters nc/ atc, hoarseness thought likely secondary to vocal cord paralysis on the left, intermittent lichen planus(none current) History of Any Multi-Drug Resistant Organisms: None Reported Past Surgical History: Breast Surgery, Cholecystectomy, Orthopedic Surgery Additional Past Surgical History / Comment(s): left total knee replacement 2012 , gall bladder 2007, left breat lumpectomy in 1999 with radiation treatments and lymph node removal on left side, EGD and colonoscopy that showed 3 polyps, left supraclavicular lymph node biopsy(pt stated was positive). Past Anesthesia/Blood Transfusion Reactions: No Reported Reaction Additional Past Anesthesia/Blood Transfusion Reaction / Comment(s): blood transfusion when she has her children-no ractions to the blood Past Psychological History: No Psychological Hx Reported Additional Psychological History / Comment(s): PT STATED TAKES XANAX AT NIGHT TO HELP SLEEP. PT LIVES WITH / 1 DOG IN SINGLE LEVEL HOME W/ BASEMENT. 2 STEPS TO GET INTO HOME- BASEMENT HAS 13 STEPS BUT DOES'NT HAVE TO GO DOWN STAIRS-[place] IS ON MAIN LEVEL. NO HOME CARE SERVICES. HAD HOME 02/NEBULIZER. 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 Smoking Status: Former smoker Past Alcohol Use History: None Reported Additional Past Alcohol Use History / Comment(s): started smoking 1960,quit smoking 12 years ago(2004), was smoking 1 ppd. Past Drug Use History: None Reported - Past Family History Mother Family Medical History: Cancer Additional Family Medical History / Comment(s): bowel Father Family Medical History: CVA/TIA Brother(s) Family Medical History: No Reported History Sister(s) Family Medical History: No Reported History Daughter(s) Family Medical History: No Reported History Son(s) Family Medical History: No Reported History Medications and Allergies Home Medications Medication Instructions Recorded Confirmed Type Acetaminophen [Tylenol] 500 mg PO Q4-6H PRN 08/08/16 10/28/16 History Levothyroxine Sodium [Synthroid] 25 mcg PO DAILY 08/08/16 10/28/16 History Omeprazole [PriLOSEC] 20 mg PO AC-BRKFST 08/08/16 10/28/16 History Simvastatin [Zocor] 20 mg PO HS 08/08/16 10/28/16 History amLODIPine BESYLATE [Norvasc] 5 mg PO DAILY 08/08/16 10/28/16 History Budesonide-Formot 160-4.5 Mcg 2 puff INHALATION RT-BID 09/18/16 10/28/16 History [Symbicort 160-4.5 Mcg Inhaler] ALPRAZolam [Xanax] 0.5 mg PO DAILY PRN 10/16/16 10/28/16 History Ipratropium-Albuterol Nebulize 3 ml INHALATION RT-TID PRN 10/16/16 10/28/16 History [Duoneb 0.5 mg-3 mg/3 ml Soln] Ondansetron [Zofran] 4 mg PO TID PRN 10/16/16 10/28/16 History Acetaminophen-Codeine 300-30mg 1 tab PO Q8H PRN 10/28/16 10/28/16 History [Tylenol #3] Clindamycin HCl [Cleocin] 300 mg PO Q8H 10/28/16 10/28/16 History Docusate Sodium [Dok] 100 mg PO DAILY PRN 10/28/16 10/28/16 History Folic Acid 1 mg PO DAILY 10/28/16 10/28/16 History Magnesium Oxide [Magox 400] 400 mg PO TID 10/28/16 10/28/16 History Metoprolol Tartrate [Lopressor] 25 mg PO BID 10/28/16 10/28/16 History Allergies Allergy/AdvReac Type Severity Reaction Status Date / Time Penicillins Allergy Rash/Hives Verified 10/28/16 14:26 Physical Exam Vitals: Vital Signs Temp Pulse Resp BP Pulse Ox 11/26/16 16:57 98.5 F 124 H 22 130/85 92 L Intake and Output 11/26/16 11/26/16 11/26/16 06:59 14:59 22:59 Other: Weight 63.9 kg Patient Weight 11/27/16 06:59 Weight 63.9 kg - Constitutional General appearance: mild distress, thin - EENT Eyes: anicteric sclerae, EOMI, PERRLA, no ptosis, no scleral icterus, normal appearance ENT: NA/AT, normal oropharynx, no thrush Ears: bilateral: normal - Neck Neck: normal ROM, no rigidity, no stridor, no thyromegaly Carotids: bilateral: upstroke delayed - Respiratory Respiratory: bilateral: diminished, rhonchi, wheezing, prolonged expiration - Cardiovascular Rhythm: regular Heart sounds: normal: S1, S2 Abnormal Heart Sounds: systolic murmur - Gastrointestinal General gastrointestinal: normal bowel sounds, soft, no splenomegaly, no tenderness, no umbilical hernia, no ventral hernia - Integumentary Integumentary: decreased turgor - Neurologic Neurologic: CNII-XII intact - Musculoskeletal Musculoskeletal: generalized weakness, strength equal bilaterally - Psychiatric Psychiatric: A&O x's 3, appropriate affect, intact judgment & insight Thrombosis Risk Factor Assmnt - DVT/VTE Prophylaxis DVT/VTE Prophylaxis: Pharmacologic Prophylaxis ordered, Mechanical Prophylaxis ordered Assessment and Plan Plan: Assessment and plan: 1. Acute respiratory failure secondary to acute exacerbation of COPD. Start Solu-Medrol 60 mg IV push every 6 hours, DuoNeb 3 mg nebulization 4 times every day, Pulmicort 0.5 mg nebulization twice every day, Doxycycline 100 mg orally bid, chest x-ray, oxygen 3 L nasal cannula, monitor the patient very closely. 2. Dehydration due to chronic diarrhea. Patient will be given normal saline 1 L over one hour, then we will start normal saline at 125 mL per hour monitor CMP , magnesium, phosphorus. 3. Hypertension and hypertensive cardiovascular disease. Continue amlodipine 5 mg orally once every day and Toprol XL 25 mg orally once every day. 4. Hyperlipidemia. Continue simvastatin 20 mg orally bedtime. 5. Hypothyroidism. Continue Synthroid 25 g orally once every day. 6. Vitamin D deficiency. Continue vitamin D3 1000 international units once every day. 7. History of breast cancer status post left lumpectomy with radiation and 5 year hormonal therapy. 8. Hoarseness secondary to vocal cord paralysis. Stable at this time. 9. Metastatic lung cancer. Currently post fourth cycle of carboplatin and Alimta patient is under the care of oncology. 10. DVT prophylaxis. Heparin 5000 units subcutaneously every 12 hours, bilateral knee-high MACY hose. 11. GI prophylaxis. Continue Protonix 40 mg IV push every 24 hours. 12. Admit to inpatient. Estimate length of stay 2 midnights. 13. Patient is no code per her own wishes .
--- NOTE | 2016-11-26 17:44 | XR ---
EXAMINATION TYPE: XR chest 2V DATE OF EXAM: 11/26/2016 5:30 PM COMPARISON: Chest radiographs October 28, 2016 HISTORY: Dyspnea with wheezing, patient carries a history of carcinoma TECHNIQUE: Frontal and lateral views of the chest are obtained. FINDINGS: The lung inflation has worsened considerably since the prior study, with a markedly promine nt ill-defined reticulonodular bilateral pattern of increased density, greater on the right. The nodu lar component suggests the possibility of lymphangitic carcinomatosis if clinically corroborated. How ever, atypical pulmonary edema is within the radiologic differential diagnosis. There is no focal consolidation and no major atelectasis. The pleural spaces are negative. Skeletal structures are unremarkable. Right mastectomy change appreciated. IMPRESSION: PROMINENT BILATERAL RETICULONODULAR LUNG PARENCHYMAL PATTERN.
[2016-11-26 17:54] LABS: Basophils % (A) 0 %; CHCM 32.2; Eosinophils % (A) 1 %; HCT 33.5 % (34.0-46.0); HDW 2.43; HGB 10.9 gm/dL (11.4-16.0); Luc # (Auto) 0.08; Luc % (Auto) 3; Lymphocytes # (A) 0.5 k/uL (1.0-4.8); Lymphocytes % (A) 15 %; MCH 30.5 pg (25.0-35.0); MCHC 32.6 g/dL (31.0-37.0); MCV 93.5 fL (80.0-100.0); Mean Platelet Volume 6.7; Monocytes # (A) 0.1 k/uL (0-1.0); Monocytes % (A) 2 %; Neutrophils # (A) 2.6 k/uL (1.3-7.7); Neutrophils % (A) 80 %; RBC 3.58 m/uL (3.80-5.40); RDW 15.6 % (11.5-15.5); WBC 3.3 k/uL (3.8-10.6); WBC (Perox) 3.52
[2016-11-26 17:56] LABS: ALT 26 U/L (9-52); AST 20 U/L (14-36); Alkaline Phosphatase 70 U/L (38-126); Anion Gap 14 mmol/L; Blood Urea Nitrogen 17 mg/dL (7-17); Calcium 8.7 mg/dL (8.4-10.2); Carbon Dioxide 26 mmol/L (22-30); Chloride 96 mmol/L (98-107); Glucose 96 mg/dL (74-99); Magnesium 1.4 mg/dL (1.6-2.3); Non-African American GFR(MDRD) >60 (>60 ml/min/1.73 sqM); Phosphorous 3.5 mg/dL (2.5-4.5); Potassium 3.6 mmol/L (3.5-5.1); Sodium 136 mmol/L (137-145); Total Bilirubin 0.7 mg/dL (0.2-1.3); Total Protein 6.2 g/dL (6.3-8.2)
[2016-11-26] MEDS: SODIUM CHLORIDE 0.9% 1,000 ML IV SCH (18:10)
[2016-11-26] MEDS: methylPREDNISolone SOD SUCCI 125 MG/2 ML VIAL IV SCH ×2 (18:13→23:12)
[2016-11-26] MEDS: PANTOPRAZOLE 40 MG TABLET PO SCH (18:13)
[2016-11-26] MEDS ORDERED: LEVALBUTEROL NEB 1.25 MG/3 ML AMP INHALATION PRN (18:47)
[2016-11-26] MEDS ORDERED: SYMBICORT 160-4.5 MCG INHALER INHALATION SCH (20:00)
[2016-11-26] MEDS ORDERED: IPRATROPIUM-ALBUTEROL 3 ML NEB INHALATION SCH (20:00)
[2016-11-26] MEDS: MAGNESIUM SULFATE-D5W PMX 1 GM in DEXTROSE/WATER 1 100ML.BAG IVPB SCH ×2 (20:22→21:28)
[2016-11-26] MEDS: LEVALBUTEROL NEB 1.25 MG/3 ML AMP INHALATION SCH (20:39)
[2016-11-26] MEDS ORDERED: ATORVASTATIN 20 MG TAB PO SCH (21:00)
[2016-11-26 21:19] LABS: Glucose,Whole Blood 123 mg/dL (75-99)
[2016-11-26] MEDS: HEPARIN SODIUM,PORCINE 5,000 UNIT/ML 1 ML VIAL SQ SCH (21:28)
[2016-11-26] MEDS: guaiFENesin 600 MG TABLET.ER PO SCH (21:28)
[2016-11-26] MEDS: DOXYCYCLINE 50 MG CAP PO SCH (21:28)
[2016-11-26] MEDS: INSULIN LISPRO (humaLOG) 300 UNIT/3 ML VIAL SQ SCH (21:33)
[2016-11-26] MEDS: ACETAMINOPHEN TAB 325 MG TAB PO PRN (22:17)
[2016-11-26 23:50] LABS: Hemoglobin A1C 6.3 % (4.2-6.1)
[2016-11-27] MEDS: LEVALBUTEROL NEB 1.25 MG/3 ML AMP INHALATION SCH ×5 (05:34→19:17)
[2016-11-27] MEDS: LEVOTHYROXINE 25 MCG TAB PO SCH (06:08)
[2016-11-27] MEDS: methylPREDNISolone SOD SUCCI 125 MG/2 ML VIAL IV SCH ×4 (06:08→23:30)
[2016-11-27 07:46] LABS: Glucose,Whole Blood 126 mg/dL (75-99)
[2016-11-27] MEDS: INSULIN LISPRO (humaLOG) 300 UNIT/3 ML VIAL SQ SCH ×4 (08:46→21:04)
[2016-11-27] MEDS: SODIUM CHLORIDE 0.9% 1,000 ML IV SCH ×4 (08:47→23:30)
[2016-11-27] MEDS: DOXYCYCLINE 50 MG CAP PO SCH ×2 (08:47→21:04)
[2016-11-27] MEDS: MAGNESIUM OXIDE 400 MG TAB PO SCH (08:48)
[2016-11-27] MEDS: guaiFENesin 600 MG TABLET.ER PO SCH ×2 (08:48→21:04)
[2016-11-27] MEDS: PANTOPRAZOLE 40 MG TABLET PO SCH ×2 (08:48→17:54)
[2016-11-27] MEDS: HEPARIN SODIUM,PORCINE 5,000 UNIT/ML 1 ML VIAL SQ SCH ×2 (08:48→21:04)
[2016-11-27] MEDS: ACETAMINOPHEN TAB 325 MG TAB PO PRN ×3 (08:57→23:31)
[2016-11-27 09:27] LABS: Basophils % (A) 0 %; CH 30.4; CHCM 33.5; Eosinophils % (A) 0 %; HCT 29.9 % (34.0-46.0); HDW 2.48; HGB 9.7 gm/dL (11.4-16.0); Luc # (Auto) 0.02; Luc % (Auto) 1; Lymphocytes # (A) 0.2 k/uL (1.0-4.8); Lymphocytes % (A) 12 %; MCH 29.6 pg (25.0-35.0); MCHC 32.6 g/dL (31.0-37.0); MCV 90.9 fL (80.0-100.0); Mean Platelet Volume 6.4; Monocytes % (A) 2 %; Neutrophils # (A) 1.3 k/uL (1.3-7.7); Neutrophils % (A) 85 %; RBC 3.29 m/uL (3.80-5.40); RDW 15.7 % (11.5-15.5); WBC (Perox) 1.55
[2016-11-27] MEDS: METOPROLOL TARTRATE 25 MG TAB PO SCH (09:28)
[2016-11-27 09:31] LABS: WBC 1.5 k/uL (3.8-10.6)
[2016-11-27 09:49] LABS: ALT 27 U/L (9-52); AST 16 U/L (14-36); Alkaline Phosphatase 71 U/L (38-126); Anion Gap 8 mmol/L; Blood Urea Nitrogen 11 mg/dL (7-17); Carbon Dioxide 28 mmol/L (22-30); Chloride 101 mmol/L (98-107); Glucose 163 mg/dL (74-99); Magnesium 1.9 mg/dL (1.6-2.3); Non-African American GFR(MDRD) >60 (>60 ml/min/1.73 sqM); Potassium 3.7 mmol/L (3.5-5.1); Sodium 137 mmol/L (137-145); Total Bilirubin 0.4 mg/dL (0.2-1.3); Total Protein 6.2 g/dL (6.3-8.2)
[2016-11-27 12:07] LABS: Glucose,Whole Blood 140 mg/dL (75-99)
[2016-11-27] MEDS: FOLIC ACID 1 MG TAB PO SCH (12:19)
--- NOTE | 2016-11-27 13:34 | P.CONS ---
History of Present Illness - Reason for Consult Consult date: 11/27/16 Requesting physician: Natalie Llanos - Chief Complaint SOB, weakness - History of Present Illness Mrs. Calero is a very pleasant pt of Dr. Davis who presented with persistent cough and exertional dyspnea starting in April 2016. She was treated with 2-3 courses of antibiotics and steroids with temporary but incomplete relief. On she had a CXR showing suspicious FRAN airspace disease. CT Chest 2015 revealed 4.2cm mass like area of consolidation in inferior lingula with borderline enlarged left supraclavicular node. Pt had CT guided biopsy on 08/12 of left supraclavicular node, path was positive for metastatic adenocarcinoma, IHC stains favoring upper GI, pancreaticobiliary vs rectal as primary. She was referred to Dr. Montero at [facility], pathology was reviewed and felt to be compatible with primary lung cancer as EGD/colonoscopy were both negative. Repeat CT scan on 09/01/2016 revealed FRAN mass and collapsed FRAN, bilateral lung nodule, left supraclavicular node, right hilar adenopathy, mediastinal nodes and left pleural effusion. Due to her significant dyspnea and collapsed FRAN she underwent palliative radiation therapy which was completed on 09/22/2016. Tumor mutation studies could not be performed. Pt carboplatin/alimta on 10/09/2016 with her 3rd cycle last week, she was hospitalized after cycle 2 for COPD exacerbation, she has had a least 3 ER visits in the last 90 days for SOB, DEE DEE and once was being evaluated for arrhythmia. She was seen in office yesterday for f/u s/p 3 cycles of carbo/alimta with c/o 1 week progressive weakness, she has had constant diarrhea and vomiting per daughter x 3 days, she was not eating or drinking, c/o difficulty breathing and being very tired and uncomfortable. Pt denied fevers, rigors, hemoptysis, dysuria, heamturia, mucoid or bloody stool, swelling, rash or pain. She was admitted and is being treated for COPD exacerbation. When seen today pt is much more alert then yesterday, she states feeling better, no nausea, breathing is more comfortable, she has not a BM since admission. She has noted headaches recently which is new for her, she was sched to have MRI of the brain outpatient yesterday but she was in no condition to have that imaging at that time. Review of Systems All systems: negative Constitutional: Reports as per HPI Past Medical History Past Medical History: Cancer, GERD/Reflux, Hyperlipidemia, Hypertension, Osteoarthritis (OA), Thyroid Disorder Additional Past Medical History / Comment(s): left breast cancer, COPD, adenocarcinoma of the lung-"pt stated stage 4" finished 10 radiation tx. RECEIVING chemo HAD A TX ON tx 11-20-16,home 02 2 liters nc/ atc, hoarseness thought likely secondary to vocal cord paralysis on the left, intermittent lichen planus(none current) History of Any Multi-Drug Resistant Organisms: None Reported Past Surgical History: Breast Surgery, Cholecystectomy, Orthopedic Surgery Additional Past Surgical History / Comment(s): left total knee replacement 2012 , gall bladder 2007, left breat lumpectomy in 1999 with radiation treatments and lymph node removal on left side, EGD and colonoscopy that showed 3 polyps, left supraclavicular lymph node biopsy(pt stated was positive). Past Anesthesia/Blood Transfusion Reactions: No Reported Reaction Additional Past Anesthesia/Blood Transfusion Reaction / Comm: blood transfusion when she has her children-no ractions to the blood Past Psychological History: No Psychological Hx Reported Additional Psychological History / Comment(s): PT STATED TAKES XANAX AT NIGHT TO HELP SLEEP. PT LIVES WITH / 1 DOG IN SINGLE LEVEL HOME W/ BASEMENT. 2 STEPS TO GET INTO HOME- BASEMENT HAS 13 STEPS BUT DOES'NT HAVE TO GO DOWN STAIRS-[place] IS ON MAIN LEVEL. NO HOME CARE SERVICES. HAD HOME 02/NEBULIZER. 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 Smoking Status: Former smoker Past Alcohol Use History: None Reported Additional Past Alcohol Use History / Comment(s): started smoking 1960,quit smoking 12 years ago(2004), was smoking 1 ppd. Past Drug Use History: None Reported - Past Family History Mother Family Medical History: Cancer Additional Family Medical History / Comment(s): bowel Father Family Medical History: CVA/TIA Brother(s) Family Medical History: No Reported History Sister(s) Family Medical History: No Reported History Daughter(s) Family Medical History: No Reported History Son(s) Family Medical History: No Reported History Medications and Allergies Home Medications Medication Instructions Recorded Confirmed Type Acetaminophen [Tylenol] 1,000 mg PO Q6H PRN 08/08/16 11/26/16 History Levothyroxine Sodium [Synthroid] 25 mcg PO DAILY 08/08/16 11/26/16 History Omeprazole [PriLOSEC] 20 mg PO AC-BRKFST 08/08/16 11/26/16 History Simvastatin [Zocor] 20 mg PO HS 08/08/16 11/26/16 History Budesonide-Formot 160-4.5 Mcg 2 puff INHALATION RT-BID 09/18/16 11/26/16 History [Symbicort 160-4.5 Mcg Inhaler] ALPRAZolam [Xanax] 0.5 mg PO HS 10/16/16 11/26/16 History Ondansetron [Zofran] 4 mg PO Q4H PRN 10/16/16 11/26/16 History Acetaminophen-Codeine 300-30mg 1 tab PO Q8H PRN 10/28/16 11/26/16 History [Tylenol #3] Docusate Sodium [Dok] 100 mg PO DAILY PRN 10/28/16 11/26/16 History Folic Acid 1 mg PO DAILY 10/28/16 11/26/16 History Magnesium Oxide [Magox 400] 400 mg PO DAILY 10/28/16 11/26/16 History Metoprolol Tartrate [Lopressor] 25 mg PO QAM 10/28/16 11/26/16 History Acetaminophen Tab [Tylenol Tab] 1,000 mg PO HS 11/26/16 11/26/16 History Allergies Allergy/AdvReac Type Severity Reaction Status Date / Time Penicillins Allergy Rash/Hives Verified 11/26/16 17:59 albuterol [From DuoNeb] AdvReac Nausea Verified 11/26/16 18:05 ipratropium [From DuoNeb] AdvReac Nausea Verified 11/26/16 18:05 Physical Exam Vitals: Vital Signs Temp Pulse Pulse Resp BP Pulse Ox 11/27/16 08:45 100 11/27/16 08:30 98 100 11/27/16 07:00 98.4 F 99 20 151/80 96 11/26/16 22:17 98.7 F 110 H 18 119/62 92 L 11/26/16 20:53 100 11/26/16 20:39 100 11/26/16 16:57 98.5 F 124 H 22 130/85 92 L Intake and Output 11/26/16 11/27/16 11/27/16 22:59 06:59 14:59 Intake Total 450 900 Balance 450 900 Intake: Intake, IV Titration 450 900 Amount Sodium Chloride 0.9% 1, 450 900 000 ml @ 150 mls/hr IV . Q6H40M [facility] Rx#:[id number] Other: Voiding Method Toilet # Voids 2 2 Weight 63.9 kg - Constitutional General appearance: cooperative, no acute distress - EENT Eyes: anicteric sclerae, PERRLA, normal appearance ENT: normal oropharynx - Respiratory Respiratory: bilateral: rhonchi, wheezing, prolonged expiration - Cardiovascular Rhythm: regular Heart sounds: normal: S1, S2 leg Peripheral Edema: bilateral: None - Gastrointestinal General gastrointestinal: no absent bowel sounds, no decreased bowel sounds, no distended, no hepatomegaly, no hyperactive bowel sounds, normal bowel sounds, no organomegaly, no rigid, no scaphoid, soft, no splenomegaly, no tenderness, no umbilical hernia, no ventral hernia - Integumentary Integumentary: normal - Neurologic Neurologic: CNII-XII intact - Musculoskeletal Musculoskeletal: generalized weakness, strength equal bilaterally - Psychiatric Psychiatric: A&O x's 3, appropriate affect, intact judgment & insight Results CBC & Chem 7: 11/27/16 08:55 11/27/16 08:55 Labs: Abnormal Lab Results - Last 24 Hours (Table) 11/26/16 11/26/16 11/26/16 Range/Units 17:15 17:15 17:15 WBC 3.3 L (3.8-10.6) k/uL RBC 3.58 L (3.80-5.40) m/uL Hgb 10.9 L (11.4-16.0) gm/dL Hct 33.5 L (34.0-46.0) % RDW 15.6 H (11.5-15.5) % Lymphocytes # 0.5 L (1.0-4.8) k/uL Sodium 136 L (137-145) mmol/L Chloride 96 L (98-107) mmol/L POC Glucose (mg/dL) (75-99) mg/dL Hemoglobin A1c 6.3 H (4.2-6.1) % Magnesium 1.4 L (1.6-2.3) mg/dL Total Protein 6.2 L (6.3-8.2) g/dL Albumin 3.4 L (3.5-5.0) g/dL 11/26/16 11/27/16 Range/Units 21:07 07:33 WBC (3.8-10.6) k/uL RBC (3.80-5.40) m/uL Hgb (11.4-16.0) gm/dL Hct (34.0-46.0) % RDW (11.5-15.5) % Lymphocytes # (1.0-4.8) k/uL Sodium (137-145) mmol/L Chloride (98-107) mmol/L POC Glucose (mg/dL) 123 H 126 H (75-99) mg/dL Hemoglobin A1c (4.2-6.1) % Magnesium (1.6-2.3) mg/dL Total Protein (6.3-8.2) g/dL Albumin (3.5-5.0) g/dL Chest x-ray: report reviewed Assessment and Plan (1) Adenocarcinoma of lung Narrative/Plan: Pt is s/p 3/4 cycles of carbo/alimta with progressively poor tolerance. We discussed this and massage was sent to Dr. Davis. he will see pt in office next week and discuss futher options for treatment. Status: Chronic (2) Headache Narrative/Plan: will order MRI of the brain now that pt is feeling better. Status: Acute
--- NOTE | 2016-11-27 14:26 | P.PN ---
Subjective This is a 71-year-old female patient of Dr. Bruno has a recent diagnosis of a lung mass which is considered to be of a primary lung. Her history dates back to around a few months back when she started having symptoms of increased cough and shortness of breath and she was given several rounds of antibiotics and ultimately she had a CAT scan of the chest which showed a masslike consolidation in the lingula in addition to left hilar, subcarinal, right hilar and an left supraclavicular lymphadenopathy. Based on this, the patient was sent for a fine-needle aspirate of the supraclavicular lymph node and a diagnosis was consistent with adenocarcinoma and the pathologist favored a GI origin rather than lungs. A PET scan was also completed which also confirmed the findings with her was a left upper lobe mass extending to the left hilar and supraclavicular area with intense uptake consistent with carcinoma. Based on the path report, the patient was referred to [facility] for a second opinion. The patient was able to see Dr. Casie Montero and she is seeing Dr. Davis locally. In addition, the mediastinal mass is causing mass effect on the mid esophagus causing proximal esophageal dilatation. Apparently the patient was discharged and has been following with Dr. Davis and she has been getting chemotherapy, her last chemotherapy in the form of carboplatin and Alimta was on I believe this was her fourth cycle and on Thursday developed to have significant dry heaving nausea and vomiting along with diarrhea for which she has been getting Lomotil, patient was supposed to see her in college just today and she was referred from the office to the hospital as a direct admit because of significant dehydration as well as significant COPD exacerbation that failed outpatient management and the patient was admitted to the hospital under were service, patient was given a liter of normal saline and she'll be placed on normal saline at 125 mL an hour after that she will be started on IV Solu- Medrol as well as nebulizer treatment [id number] oxygen support and continue conservative management as well. Patient did receive 10 courses of radiation therapy prior to her chemotherapy. 11/27: Patient states that her breathing is much improved today. Diet advanced to regular and IV fluids decreased. Patient will continue on Solu-Medrol 60 mg every 6 hours. Patient did have a fall last evening without injury. White count is 1.5 with pancytopenia. Objective - Vital Signs Vital signs: Vital Signs Temp 98.4 F 11/27/16 07:00 Pulse 100 11/27/16 08:45 Resp 20 11/27/16 07:00 BP 151/80 11/27/16 07:00 Pulse Ox 100 11/27/16 08:30 Intake & Output 11/26/16 11/27/16 11/27/16 18:59 06:59 18:59 Intake Total 1350 Balance 1350 Weight 63.9 kg Intake: Intake, IV Titration 1350 Amount Sodium Chloride 0.9% 1, 1350 000 ml @ 150 mls/hr IV . Q6H40M [facility] Rx#:[id number] Other: Voiding Method Toilet Toilet # Voids 2 - Exam General appearance: mild distress, thin - EENT Eyes: anicteric sclerae, EOMI, PERRLA, no ptosis, no scleral icterus, normal appearance ENT: NA/AT, normal oropharynx, no thrush Ears: bilateral: normal - Neck Neck: normal ROM, no rigidity, no stridor, no thyromegaly Carotids: bilateral: upstroke delayed - Respiratory Respiratory: bilateral: diminished, rhonchi, wheezing, prolonged expiration - Cardiovascular Rhythm: regular Heart sounds: normal: S1, S2 Abnormal Heart Sounds: systolic murmur - Gastrointestinal General gastrointestinal: normal bowel sounds, soft, no splenomegaly, no tenderness, no umbilical hernia, no ventral hernia - Integumentary Integumentary: decreased turgor - Neurologic Neurologic: CNII-XII intact - Musculoskeletal Musculoskeletal: generalized weakness, strength equal bilaterally - Psychiatric Psychiatric: A&O x's 3, appropriate affect, intact judgment & insight - Labs CBC & Chem 7: 11/27/16 08:55 11/27/16 08:55 Labs: Abnormal Lab Results - Last 24 Hours (Table) 11/26/16 11/26/16 11/26/16 Range/Units 17:15 17:15 17:15 WBC 3.3 L (3.8-10.6) k/uL RBC 3.58 L (3.80-5.40) m/uL Hgb 10.9 L (11.4-16.0) gm/dL Hct 33.5 L (34.0-46.0) % RDW 15.6 H (11.5-15.5) % Plt Count (150-450) k/uL Lymphocytes # 0.5 L (1.0-4.8) k/uL Sodium 136 L (137-145) mmol/L Chloride 96 L (98-107) mmol/L Glucose (74-99) mg/dL POC Glucose (mg/dL) (75-99) mg/dL Hemoglobin A1c 6.3 H (4.2-6.1) % Magnesium 1.4 L (1.6-2.3) mg/dL Total Protein 6.2 L (6.3-8.2) g/dL Albumin 3.4 L (3.5-5.0) g/dL 11/26/16 11/27/16 11/27/16 Range/Units 21:07 07:33 08:55 WBC 1.5 L* (3.8-10.6) k/uL RBC 3.29 L (3.80-5.40) m/uL Hgb 9.7 L (11.4-16.0) gm/dL Hct 29.9 L (34.0-46.0) % RDW 15.7 H (11.5-15.5) % Plt Count 117 L (150-450) k/uL Lymphocytes # 0.2 L (1.0-4.8) k/uL Sodium (137-145) mmol/L Chloride (98-107) mmol/L Glucose (74-99) mg/dL POC Glucose (mg/dL) 123 H 126 H (75-99) mg/dL Hemoglobin A1c (4.2-6.1) % Magnesium (1.6-2.3) mg/dL Total Protein (6.3-8.2) g/dL Albumin (3.5-5.0) g/dL 11/27/16 Range/Units 08:55 WBC (3.8-10.6) k/uL RBC (3.80-5.40) m/uL Hgb (11.4-16.0) gm/dL Hct (34.0-46.0) % RDW (11.5-15.5) % Plt Count (150-450) k/uL Lymphocytes # (1.0-4.8) k/uL Sodium (137-145) mmol/L Chloride (98-107) mmol/L Glucose 163 H (74-99) mg/dL POC Glucose (mg/dL) (75-99) mg/dL Hemoglobin A1c (4.2-6.1) % Magnesium (1.6-2.3) mg/dL Total Protein 6.2 L (6.3-8.2) g/dL Albumin 3.3 L (3.5-5.0) g/dL Assessment and Plan Plan: 1. Acute respiratory failure secondary to acute exacerbation of COPD. Start Solu-Medrol 60 mg IV push every 6 hours, DuoNeb 3 mg nebulization 4 times every day, Pulmicort 0.5 mg nebulization twice every day, Doxycycline 100 mg orally bid, chest x-ray, oxygen 3 L nasal cannula, monitor the patient very closely. 2. Dehydration due to chronic diarrhea. Patient will be given normal saline 1 L over one hour, then we will start normal saline at 125 mL per hour monitor CMP , magnesium, phosphorus. 3. Hypertension and hypertensive cardiovascular disease. Continue amlodipine 5 mg orally once every day and Toprol XL 25 mg orally once every day. 4. Hyperlipidemia. Continue simvastatin 20 mg orally bedtime. 5. Hypothyroidism. Continue Synthroid 25 g orally once every day. 6. Vitamin D deficiency. Continue vitamin D3 1000 international units once every day. 7. History of breast cancer status post left lumpectomy with radiation and 5 year hormonal therapy. 8. Hoarseness secondary to vocal cord paralysis. Stable at this time. 9. Metastatic lung cancer. Currently post fourth cycle of carboplatin and Alimta patient is under the care of oncology. 10. DVT prophylaxis. Heparin 5000 units subcutaneously every 12 hours, bilateral knee-high MACY hose. 11. GI prophylaxis. Continue Protonix 40 mg IV push every 24 hours. 12. Pancytopenia most likely due to metastatic lung cancer and/or chemotherapy treatment. 13. Patient is no code per her own wishes . Discharge plan: Return home Impression and plan of care have been directed as dictated by the signing physician. Ashlyn Jay nurse practitioner acting as scribe for signing physician. Time with Patient: Greater than 30
[2016-11-27 14:59] VITALS: BMI 24.9
[2016-11-27 16:32] LABS: Appearance,Urine Clear (Clear); Bilirubin,Urine Negative (Negative); Glucose,Urine (UA) Negative (Negative); Ketones,Urine Negative (Negative); Leukocyte Esterase,Urine Negative (Negative); Nitrite,Urine Negative (Negative); PH, Urine 5.5 (5.0-8.0); Protein,Urine Negative (Negative); Specific Gravity,Urine 1.006 (1.001-1.035); UA Billing (MACRO vs. MICRO) CHEM; Urobilinogen,Urine <2.0 mg/dL (<2.0)
[2016-11-27 17:34] LABS: Glucose,Whole Blood 126 mg/dL (75-99)
--- NOTE | 2016-11-27 19:36 | MR ---
EXAMINATION TYPE: MR brain wo/w con DATE OF EXAM: 11/27/2016 6:08 PM COMPARISON: PET/CT dated 08/16/2016 HISTORY: Headaches, lung ca 2016, breast ca 1999, R/O mets TECHNIQUE: Multiplanar, multisequence images of the brain and brainstem is performed without and with IV contras t, utilizing 13 mL intravenous MultiHance . FINDINGS: Diffusion weighted images demonstrate no evidence of a recent infarct or other diffusion ab normality. T2 shine through is seen within punctate foci of the left frontal lobe and right cerebell ar hemisphere. Additionally numerous areas of T2 hyperintensity are scattered throughout the subcorti kirti and periventricular white matter. These regions do not demonstrate any abnormal enhancement. Ther e is no extra-axial fluid collection or significant white matter signal abnormality. The ventricular system and cisternal spaces are normal in size and appearance. The brain volume is age appropriate. Midline structures demonstrate normal morphology. The craniocervical junction appears within normal limits. Post contrast images demonstrate no abnormal enhancement. The dural venous sinuses appear pa tent. Circumferential mucosal thickening of the right maxillary sinus. The remaining visualized sinus es are clear and the globes are intact. IMPRESSION: 1. No evidence of intracranial mass or abnormal enhancement. 2. Nonspecific white matter changes, likely on the basis of chronic microangiopathy. 3. Right maxillary sinus mucosal thickening.
[2016-11-27 20:43] LABS: Glucose,Whole Blood 177 mg/dL (75-99)
[2016-11-27] MEDS: ATORVASTATIN 10 MG TAB PO SCH (21:03)
[2016-11-28] MEDS: LEVALBUTEROL NEB 1.25 MG/3 ML AMP INHALATION SCH ×7 (04:14→23:17)
[2016-11-28] MEDS: LEVOTHYROXINE 25 MCG TAB PO SCH (06:13)
[2016-11-28] MEDS: methylPREDNISolone SOD SUCCI 125 MG/2 ML VIAL IV SCH ×2 (06:13→12:17)
[2016-11-28 07:30] LABS: Glucose,Whole Blood 112 mg/dL (75-99)
[2016-11-28 07:39] LABS: CH 30.1; CHCM 32.2; HCT 29.1 % (34.0-46.0); HDW 2.41; HGB 9.6 gm/dL (11.4-16.0); MCH 30.9 pg (25.0-35.0); MCV 93.6 fL (80.0-100.0); RBC 3.11 m/uL (3.80-5.40); RDW 15.9 % (11.5-15.5); WBC 2.5 k/uL (3.8-10.6)
[2016-11-28 07:53] LABS: ALT 24 U/L (9-52); AST 20 U/L (14-36); Alkaline Phosphatase 67 U/L (38-126); Anion Gap 11 mmol/L; Blood Urea Nitrogen 10 mg/dL (7-17); Calcium 9.3 mg/dL (8.4-10.2); Carbon Dioxide 27 mmol/L (22-30); Chloride 104 mmol/L (98-107); Glucose 115 mg/dL (74-99); Non-African American GFR(MDRD) >60 (>60 ml/min/1.73 sqM); Sodium 142 mmol/L (137-145); Total Bilirubin 0.5 mg/dL (0.2-1.3); Total Protein 6.2 g/dL (6.3-8.2)
[2016-11-28] MEDS: INSULIN LISPRO (humaLOG) 300 UNIT/3 ML VIAL SQ SCH ×4 (08:06→21:49)
[2016-11-28] MEDS: PANTOPRAZOLE 40 MG TABLET PO SCH ×2 (08:34→17:21)
[2016-11-28] MEDS: DOXYCYCLINE 50 MG CAP PO SCH ×2 (08:34→21:46)
[2016-11-28] MEDS: HEPARIN SODIUM,PORCINE 5,000 UNIT/ML 1 ML VIAL SQ SCH ×2 (08:35→21:46)
[2016-11-28] MEDS: MAGNESIUM OXIDE 400 MG TAB PO SCH (08:35)
[2016-11-28] MEDS: METOPROLOL TARTRATE 25 MG TAB PO SCH (08:35)
[2016-11-28] MEDS: guaiFENesin 600 MG TABLET.ER PO SCH ×2 (08:35→21:46)
[2016-11-28 11:59] LABS: Glucose,Whole Blood 128 mg/dL (75-99)
[2016-11-28] MEDS: SODIUM CHLORIDE 0.9% 1,000 ML IV SCH (12:17)
[2016-11-28] MEDS: FOLIC ACID 1 MG TAB PO SCH (12:17)
[2016-11-28] MEDS: ACETAMINOPHEN TAB 325 MG TAB PO PRN (12:25)
[2016-11-28] MEDS ORDERED: LOPERAMIDE 2 MG CAP PO PRN (14:25)
--- NOTE | 2016-11-28 14:34 | P.PN ---
Subjective This is a 71-year-old female patient of Dr. Bruno has a recent diagnosis of a lung mass which is considered to be of a primary lung. Her history dates back to around a few months back when she started having symptoms of increased cough and shortness of breath and she was given several rounds of antibiotics and ultimately she had a CAT scan of the chest which showed a masslike consolidation in the lingula in addition to left hilar, subcarinal, right hilar and an left supraclavicular lymphadenopathy. Based on this, the patient was sent for a fine-needle aspirate of the supraclavicular lymph node and a diagnosis was consistent with adenocarcinoma and the pathologist favored a GI origin rather than lungs. A PET scan was also completed which also confirmed the findings with her was a left upper lobe mass extending to the left hilar and supraclavicular area with intense uptake consistent with carcinoma. Based on the path report, the patient was referred to [place] for a second opinion. The patient was able to see Dr. Casie Montero and she is seeing Dr. Davis locally. In addition, the mediastinal mass is causing mass effect on the mid esophagus causing proximal esophageal dilatation. Apparently the patient was discharged and has been following with Dr. Davis and she has been getting chemotherapy, her last chemotherapy in the form of carboplatin and Alimta was on I believe this was her fourth cycle and on Thursday developed to have significant dry heaving nausea and vomiting along with diarrhea for which she has been getting Lomotil, patient was supposed to see her in college just today and she was referred from the office to the hospital as a direct admit because of significant dehydration as well as significant COPD exacerbation that failed outpatient management and the patient was admitted to the hospital under were service, patient was given a liter of normal saline and she'll be placed on normal saline at 125 mL an hour after that she will be started on IV Solu- Medrol as well as nebulizer treatment [id number] oxygen support and continue conservative management as well. Patient did receive 10 courses of radiation therapy prior to her chemotherapy. 11/27: Patient states that her breathing is much improved today. Diet advanced to regular and IV fluids decreased. Patient will continue on Solu-Medrol 60 mg every 6 hours. Patient did have a fall last evening without injury. White count is 1.5 with pancytopenia. 11/28: Patient has diarrhea x 10 but none since 10 a.m. Imodium added as needed. Brain MRI shows no acute findings. Eating more now than when she came in but still not adequate. Continue protein supplement. Patient encouraged to eat and drink more. Breathing is improving and Solu-Medrol decreased to 40 mg every 8 hours. Melatonin added for insomnia. Objective - Vital Signs Vital signs: Vital Signs Temp 97.9 F 11/28/16 07:00 Pulse 92 11/28/16 11:26 Resp 20 11/28/16 07:00 BP 172/74 11/28/16 07:00 Pulse Ox 95 11/28/16 07:00 Intake & Output 11/27/16 11/28/16 11/28/16 18:59 06:59 18:59 Intake Total 600 2009 Balance 600 2009 Weight 63.9 kg 63.9 kg Intake: Intake, IV Titration 600 Amount Sodium Chloride 0.9% 1, 600 000 ml @ 75 mls/hr IV . [id number] [facility] Rx#:[id number] Oral 2009 Other: Voiding Method Toilet Toilet Toilet # Voids 2 4 # Bowel Movements 4 - Exam General appearance: mild distress, thin - EENT Eyes: anicteric sclerae, EOMI, PERRLA, no ptosis, no scleral icterus, normal appearance ENT: NA/AT, normal oropharynx, no thrush Ears: bilateral: normal - Neck Neck: normal ROM, no rigidity, no stridor, no thyromegaly Carotids: bilateral: upstroke delayed - Respiratory Respiratory: bilateral: diminished, rhonchi, wheezing, prolonged expiration - Cardiovascular Rhythm: regular Heart sounds: normal: S1, S2 Abnormal Heart Sounds: systolic murmur - Gastrointestinal General gastrointestinal: normal bowel sounds, soft, no splenomegaly, no tenderness, no umbilical hernia, no ventral hernia - Integumentary Integumentary: decreased turgor - Neurologic Neurologic: CNII-XII intact - Musculoskeletal Musculoskeletal: generalized weakness, strength equal bilaterally - Psychiatric Psychiatric: A&O x's 3, appropriate affect, intact judgment & insight - Labs CBC & Chem 7: 11/28/16 07:10 11/28/16 07:10 Labs: Abnormal Lab Results - Last 24 Hours (Table) 11/27/16 11/27/16 11/28/16 Range/Units 17:22 20:42 07:10 WBC 2.5 L (3.8-10.6) k/uL RBC 3.11 L (3.80-5.40) m/uL Hgb 9.6 L (11.4-16.0) gm/dL Hct 29.1 L (34.0-46.0) % RDW 15.9 H (11.5-15.5) % Plt Count 133 L (150-450) k/uL Glucose (74-99) mg/dL POC Glucose (mg/dL) 126 H 177 H (75-99) mg/dL Total Protein (6.3-8.2) g/dL 11/28/16 11/28/16 11/28/16 Range/Units 07:10 07:14 11:52 WBC (3.8-10.6) k/uL RBC (3.80-5.40) m/uL Hgb (11.4-16.0) gm/dL Hct (34.0-46.0) % RDW (11.5-15.5) % Plt Count (150-450) k/uL Glucose 115 H (74-99) mg/dL POC Glucose (mg/dL) 112 H 128 H (75-99) mg/dL Total Protein 6.2 L (6.3-8.2) g/dL Microbiology - Last 24 Hours (Table) 11/27/16 16:00 Urine Culture - Preliminary Urine,Voided Assessment and Plan Plan: 1. Acute respiratory failure secondary to acute exacerbation of COPD. Start Solu-Medrol 40 mg IV push every 8 hours, DuoNeb 3 mg nebulization 4 times every day, Pulmicort 0.5 mg nebulization twice every day, Doxycycline 100 mg orally bid, chest x-ray, oxygen 3 L nasal cannula, monitor the patient very closely. 2. Dehydration due to chronic diarrhea. Patient will be given normal saline 1 L over one hour, then we will start normal saline at 125 mL per hour monitor CMP , magnesium, phosphorus. Imodium started. 3. Hypertension and hypertensive cardiovascular disease. Continue amlodipine 5 mg orally once every day and Toprol XL 25 mg orally once every day. 4. Hyperlipidemia. Continue simvastatin 20 mg orally bedtime. 5. Hypothyroidism. Continue Synthroid 25 g orally once every day. 6. Vitamin D deficiency. Continue vitamin D3 1000 international units once every day. 7. History of breast cancer status post left lumpectomy with radiation and 5 year hormonal therapy. 8. Hoarseness secondary to vocal cord paralysis. Stable at this time. 9. Metastatic lung cancer. Currently post fourth cycle of carboplatin and Alimta patient is under the care of oncology. 10. DVT prophylaxis. Heparin 5000 units subcutaneously every 12 hours, bilateral knee-high MACY hose. 11. GI prophylaxis. Continue Protonix 40 mg IV push every 24 hours. 12. Pancytopenia most likely due to metastatic lung cancer and/or chemotherapy treatment. 13. Patient is no code per her own wishes . Discharge plan: Return home in the next 24-48 hours. Impression and plan of care have been directed as dictated by the signing physician. Ashlyn Jay nurse practitioner acting as scribe for signing physician. Time with Patient: Greater than 30
[2016-11-28 17:29] LABS: Glucose,Whole Blood 128 mg/dL (75-99)
[2016-11-28 20:48] LABS: Glucose,Whole Blood 175 mg/dL (75-99)
[2016-11-28] MEDS: ATORVASTATIN 10 MG TAB PO SCH (21:46)
[2016-11-28] MEDS: MELATONIN 3 MG TABLET PO SCH (21:47)
[2016-11-28] MEDS: methylPREDNISolone SOD SUCCI 40 MG/ML 1 ML VIAL IV SCH (21:47)
[2016-11-29] MEDS: SODIUM CHLORIDE 0.9% 1,000 ML IV SCH ×3 (00:52→11:54)
[2016-11-29] MEDS: LEVALBUTEROL NEB 1.25 MG/3 ML AMP INHALATION SCH ×7 (02:39→23:11)
[2016-11-29] MEDS: methylPREDNISolone SOD SUCCI 40 MG/ML 1 ML VIAL IV SCH ×3 (04:00→20:26)
[2016-11-29] MEDS: LEVOTHYROXINE 25 MCG TAB PO SCH (06:13)
[2016-11-29 07:23] LABS: Glucose,Whole Blood 118 mg/dL (75-99)
[2016-11-29] MEDS: INSULIN LISPRO (humaLOG) 300 UNIT/3 ML VIAL SQ SCH ×4 (08:37→22:50)
[2016-11-29] MEDS: DOXYCYCLINE 50 MG CAP PO SCH ×2 (08:38→20:25)
[2016-11-29] MEDS: PANTOPRAZOLE 40 MG TABLET PO SCH ×2 (08:39→17:36)
[2016-11-29] MEDS: guaiFENesin 600 MG TABLET.ER PO SCH ×2 (08:39→20:26)
[2016-11-29] MEDS: MAGNESIUM OXIDE 400 MG TAB PO SCH (08:39)
[2016-11-29] MEDS: METOPROLOL TARTRATE 25 MG TAB PO SCH (08:39)
[2016-11-29] MEDS: HEPARIN SODIUM,PORCINE 5,000 UNIT/ML 1 ML VIAL SQ SCH ×2 (08:39→20:26)
[2016-11-29] MEDS: FOLIC ACID 1 MG TAB PO SCH (08:40)
[2016-11-29 08:50] VITALS: RESP 20
[2016-11-29 11:20] LABS: Glucose,Whole Blood 112 mg/dL (75-99)
--- NOTE | 2016-11-29 12:34 | P.CNPUL ---
History of Present Illness Consult date: 11/29/16 Reason for consult: lung mass History of present illness: 70-year-old female patient with established diagnosis of metastatic adenocarcinoma of the lung, stage IV disease is currently on systemic chemotherapy receiving a combination of carboplatin and Alimta. The patient. 3 cycles of systemic chemotherapy and radiation therapy to her chest. The patient's latest systemic chemotherapy was approximately 1 week ago. Her history dates back to July 2016 when she presented with significant abnormalities including a left supraclavicular lymphadenopathy, left upper lobe lung mass, extensive mediastinal lymphadenopathy for which she underwent a biopsy of the supraclavicular lymph node and diagnosis of adenocarcinoma was established. After consulting with, cancer [place] the patient was started on systemic chemotherapy. The patient also had developed a left vocal cord paralysis related to her thoracic tumor. She has been maintained on oxygen at 2 L/m nasal cannula. She has COPD. During this current hospitalization, the patient came into the hospital because of dry heaves, nausea, vomiting along with some diarrhea and dehydration and electrolyte imbalance specifically hypomagnesemia. She came into the hospital she was given normal saline infusion 1 L initially bolus and 1 25 mL an hour as maintenance. I reviewed her chest x-ray. There is some patchy infiltration of the right lung which I suspect representing metastatic disease involving the right lung. Note that the patient was developing nodular lesions in her right lung base on the most recent CAT scan of the chest that was done in October 2016. She is feeling better after being resuscitated with IV fluids. Her white cell count was done which is essentially systemic chemotherapy effect with this is improving. No fever. No signs of any febrile neutropenia. No difficulties in swallowing. No skeletal pain. No other complaints otherwise for now. Review of Systems generalized weakness and some difficulties in breathing along with dehydration which is essentially improving for now. Stool for C. diff was evaluated and was negative. No focal neurological deficit an MRI of the brain was done that showed no acute abnormalities. Past Medical History Past Medical History: Cancer, GERD/Reflux, Hyperlipidemia, Hypertension, Osteoarthritis (OA), Thyroid Disorder Additional Past Medical History / Comment(s): Metastatic adenocarcinoma of the lung, stage IV disease, remote history of left breast cancer, COPD, chronic hypoxic respiratory failure maintained on oxygen 2 L/m nasal cannula, hyperlipidemia, GERD, hypothyroidism, left-sided vocal cord paralysis, lichen planus, osteoarthritis History of Any Multi-Drug Resistant Organisms: None Reported Past Surgical History: Breast Surgery, Cholecystectomy, Orthopedic Surgery Additional Past Surgical History / Comment(s): left total knee replacement 2012 , gall bladder 2007, left breat lumpectomy in 1999 with radiation treatments and lymph node removal on left side, EGD and colonoscopy that showed 3 polyps, left supraclavicular lymph node biopsy(pt stated was positive). Past Anesthesia/Blood Transfusion Reactions: No Reported Reaction Additional Past Anesthesia/Blood Transfusion Reaction / Comment(s): blood transfusion when she has her children-no ractions to the blood Past Psychological History: No Psychological Hx Reported Additional Psychological History / Comment(s): PT STATED TAKES XANAX AT NIGHT TO HELP SLEEP. PT LIVES WITH / 1 DOG IN SINGLE LEVEL HOME W/ BASEMENT. 2 STEPS TO GET INTO HOME- BASEMENT HAS 13 STEPS BUT DOES'NT HAVE TO GO DOWN STAIRS-[place] IS ON MAIN LEVEL. NO HOME CARE SERVICES. HAD HOME 02/NEBULIZER. 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 Smoking Status: Former smoker Past Alcohol Use History: None Reported Additional Past Alcohol Use History / Comment(s): started smoking 1960,quit smoking 12 years ago(2004), was smoking 1 ppd. Past Drug Use History: None Reported - Past Family History Mother Family Medical History: Cancer Additional Family Medical History / Comment(s): bowel Father Family Medical History: CVA/TIA Brother(s) Family Medical History: No Reported History Sister(s) Family Medical History: No Reported History Daughter(s) Family Medical History: No Reported History Son(s) Family Medical History: No Reported History Medications and Allergies Home Medications Medication Instructions Recorded Confirmed Type Acetaminophen [Tylenol] 1,000 mg PO Q6H PRN 08/08/16 11/26/16 History Levothyroxine Sodium [Synthroid] 25 mcg PO DAILY 08/08/16 11/26/16 History Omeprazole [PriLOSEC] 20 mg PO AC-BRKFST 08/08/16 11/26/16 History Simvastatin [Zocor] 20 mg PO HS 08/08/16 11/26/16 History Budesonide-Formot 160-4.5 Mcg 2 puff INHALATION RT-BID 09/18/16 11/26/16 History [Symbicort 160-4.5 Mcg Inhaler] ALPRAZolam [Xanax] 0.5 mg PO HS 10/16/16 11/26/16 History Ondansetron [Zofran] 4 mg PO Q4H PRN 10/16/16 11/26/16 History Acetaminophen-Codeine 300-30mg 1 tab PO Q8H PRN 10/28/16 11/26/16 History [Tylenol #3] Docusate Sodium [Dok] 100 mg PO DAILY PRN 10/28/16 11/26/16 History Folic Acid 1 mg PO DAILY 10/28/16 11/26/16 History Magnesium Oxide [Magox 400] 400 mg PO DAILY 10/28/16 11/26/16 History Metoprolol Tartrate [Lopressor] 25 mg PO QAM 10/28/16 11/26/16 History Acetaminophen Tab [Tylenol Tab] 1,000 mg PO HS 11/26/16 11/26/16 History Allergies Allergy/AdvReac Type Severity Reaction Status Date / Time Penicillins Allergy Rash/Hives Verified 11/26/16 17:59 albuterol [From DuoNeb] AdvReac Nausea Verified 11/26/16 18:05 ipratropium [From DuoNeb] AdvReac Nausea Verified 11/26/16 18:05 Physical Exam Vitals: Vital Signs Temp Pulse Pulse Resp BP Pulse Ox 11/29/16 11:30 88 11/29/16 11:22 88 11/29/16 07:52 92 11/29/16 07:44 96 11/29/16 07:00 98.9 F 78 20 143/87 96 11/29/16 04:25 78 11/29/16 04:16 76 11/28/16 22:16 98.5 F 72 17 134/61 93 L 11/28/16 19:36 77 11/28/16 19:25 95 11/28/16 19:23 77 11/28/16 15:53 94 11/28/16 15:39 94 11/28/16 15:00 98.6 F 70 20 129/63 93 L Intake and Output 11/28/16 11/29/16 11/29/16 22:59 06:59 14:59 Intake Total 300 600 Balance 300 600 Intake: IV 300 600 Sodium Chloride 0.9% 1, 300 600 000 ml @ 75 mls/hr IV . [id number] [facility] Rx#:[id number] Other: Voiding Method Toilet Toilet Toilet Head exam was generally normal. There was no scleral icterus or corneal arcus. Mucous membranes were moist.Neck was supple and without jugular venous distension, thyromegaly, or carotid bruits. Carotids were easily palpable bilaterally. There was no adenopathy.lung sounds are diminished bilaterally along with some few rales in the lung bases. There is also some mild prolongation of the extremities of breathing and scattered external wheezes.Cardiac exam revealed the PMI to be normally situated and sized. The rhythm was regular and no extrasystoles were noted during several minutes of auscultation. The first and second heart sounds were normal and physiologic splitting of the second heart sound was noted. There were no murmurs, rubs, clicks, or gallops.Abdominal exam revealed normal bowel sounds. The abdomen was soft, non-tender, and without masses, organomegaly, or appreciable enlargement of the abdominal aorta.Examination of the extremities revealed easily palpable radial, femoral and pedal pulses. There was no cyanosis, clubbing or edema. Results - Laboratory Findings CBC and BMP: 11/28/16 07:10 11/28/16 07:10 Abnormal lab findings: Abnormal Labs 11/26/16 11/26/16 11/26/16 17:15 17:15 17:15 WBC 3.3 L RBC 3.58 L Hgb 10.9 L Hct 33.5 L RDW 15.6 H Plt Count Lymphocytes # 0.5 L Sodium 136 L Chloride 96 L Glucose POC Glucose (mg/dL) Hemoglobin A1c 6.3 H Magnesium 1.4 L Total Protein 6.2 L Albumin 3.4 L 11/26/16 11/27/16 11/27/16 21:07 07:33 08:55 WBC 1.5 L* RBC 3.29 L Hgb 9.7 L Hct 29.9 L RDW 15.7 H Plt Count 117 L Lymphocytes # 0.2 L Sodium Chloride Glucose POC Glucose (mg/dL) 123 H 126 H Hemoglobin A1c Magnesium Total Protein Albumin 11/27/16 11/27/16 11/27/16 08:55 12:04 17:22 WBC RBC Hgb Hct RDW Plt Count Lymphocytes # Sodium Chloride Glucose 163 H POC Glucose (mg/dL) 140 H 126 H Hemoglobin A1c Magnesium Total Protein 6.2 L Albumin 3.3 L 11/27/16 11/28/16 11/28/16 20:42 07:10 07:10 WBC 2.5 L RBC 3.11 L Hgb 9.6 L Hct 29.1 L RDW 15.9 H Plt Count 133 L Lymphocytes # Sodium Chloride Glucose 115 H POC Glucose (mg/dL) 177 H Hemoglobin A1c Magnesium Total Protein 6.2 L Albumin 11/28/16 11/28/16 11/28/16 07:14 11:52 17:19 WBC RBC Hgb Hct RDW Plt Count Lymphocytes # Sodium Chloride Glucose POC Glucose (mg/dL) 112 H 128 H 128 H Hemoglobin A1c Magnesium Total Protein Albumin 11/28/16 11/29/16 11/29/16 20:33 07:21 11:18 WBC RBC Hgb Hct RDW Plt Count Lymphocytes # Sodium Chloride Glucose POC Glucose (mg/dL) 175 H 118 H 112 H Hemoglobin A1c Magnesium Total Protein Albumin - Diagnostic Findings Chest x-ray: image reviewed Assessment and Plan Plan: Assessment 1 metastatic stage IV adenocarcinoma of the lung status post palliative radiation therapy and systemic chemotherapy with a combination of carboplatinum and Alimta and the patient has received a total of 3 cycles. The patient had a follow-up CAT scan on October 2016 and this was compared to the initial CAT scan from July 2016. The left upper lobe mass has obviously shrunk in size yet there is still significant mediastinal lymphadenopathy which probably is essentially unchanged and in addition there is interval development of nodular pulmonary infiltrate in the right lung which could be consistent with metastatic disease and progression. 2 COPD 3 chronic hypoxic respiratory failure 4 chemotherapy-induced gastrointestinal manifestations of nausea vomiting and diarrhea with dehydration, improved 5 leukopenia, chemotherapy-induced as the patient is on carboplatinum 6 left vocal cord paralysis with secondary hoarseness 7 breast cancer, history of 8 hyperlipidemia 9 hypertension 10 GERD Plan The plan is to replenish the patient's fluid status. Replace electrolytes. Continue the systemic chemotherapy and obtain a follow-up CAT scan at the end of the treatment to assess disease progression. Unfortunately the prognosis remains poor baseline above-mentioned comorbidities. Was was this patient to a prednisone burst taper and bronchodilators involving DuoNeb and Symbicort as maintenance at the time of discharge.
[2016-11-29 17:24] LABS: Glucose,Whole Blood 122 mg/dL (75-99)
[2016-11-29] MEDS: MELATONIN 3 MG TABLET PO SCH (20:25)
[2016-11-29] MEDS: ATORVASTATIN 10 MG TAB PO SCH (20:26)
[2016-11-29 20:34] LABS: Glucose,Whole Blood 107 mg/dL (75-99)
[2016-11-29 21:26] VITALS: TEMP 97.4
[2016-11-29] MEDS: ACETAMINOPHEN TAB 325 MG TAB PO PRN (23:01)
[2016-11-30] MEDS: SODIUM CHLORIDE 0.9% 1,000 ML IV SCH (00:10)
[2016-11-30] MEDS: methylPREDNISolone SOD SUCCI 40 MG/ML 1 ML VIAL IV SCH ×2 (03:40→11:49)
[2016-11-30] MEDS: LEVALBUTEROL NEB 1.25 MG/3 ML AMP INHALATION SCH ×2 (03:51→09:28)
[2016-11-30] MEDS: LEVOTHYROXINE 25 MCG TAB PO SCH (06:17)
[2016-11-30 07:18] LABS: Glucose,Whole Blood 126 mg/dL (75-99)
[2016-11-30] MEDS: INSULIN LISPRO (humaLOG) 300 UNIT/3 ML VIAL SQ SCH ×2 (07:24→11:50)
[2016-11-30] MEDS: MAGNESIUM OXIDE 400 MG TAB PO SCH (07:28)
[2016-11-30] MEDS: guaiFENesin 600 MG TABLET.ER PO SCH (07:28)
[2016-11-30] MEDS: FOLIC ACID 1 MG TAB PO SCH (07:28)
[2016-11-30] MEDS: METOPROLOL TARTRATE 25 MG TAB PO SCH (07:28)
[2016-11-30] MEDS: HEPARIN SODIUM,PORCINE 5,000 UNIT/ML 1 ML VIAL SQ SCH (07:29)
[2016-11-30] MEDS: DOXYCYCLINE 50 MG CAP PO SCH (07:29)
[2016-11-30] MEDS: PANTOPRAZOLE 40 MG TABLET PO SCH (07:29)
[2016-11-30 09:29] VITALS: BP 147/83; PULSE 76
[2016-11-30] MEDS: ACETAMINOPHEN TAB 325 MG TAB PO PRN (10:10)
[2016-11-30 11:10] LABS: Glucose,Whole Blood 133 mg/dL (75-99)
--- NOTE | 2016-11-30 12:25 | PN ---
The patient said that she has improved slightly since yesterday and does not believe it is greater than 25%. She has been using accessory muscles with ( ) and no major events reported by nursing staff. PHYSICAL EXAMINATION: VITAL SIGNS: Reviewed and stable. LUNGS: Decreased air entry bilaterally. HEART: S1 and S2. ABDOMEN: Soft, no tenderness. Positive bowel sounds in all 4 quadrants. LOWER EXTREMITIES: No edema. PSYCH: Alert and oriented x3. IMAGING AND LABS: Chem-7 was normal limits. CBC reviewed and was normal. ASSESSMENT AND PLAN: 1. Chronic obstructive pulmonary disease with exacerbation. 2. Acute respiratory failure on chronic respiratory failure. 3. Metastatic stage IV adenocarcinoma of the lung, status post palliative radiation therapy. 4. Left vocal cord paralysis. 5. Breast cancer. 6. Hyperlipidemia. 7. Hypertension. PLAN: Will continue current support. Will continue pulmonary hygiene. I would like to consult Dr. Remy, who I contacted, and he is aware of the condition and he will evaluate the patient soon.
--- NOTE | 2016-11-30 13:16 | P.PN ---
Subjective 70-year-old female patient with established diagnosis of metastatic adenocarcinoma of the lung, stage IV disease is currently on systemic chemotherapy receiving a combination of carboplatin and Alimta. The patient. 3 cycles of systemic chemotherapy and radiation therapy to her chest. The patient's latest systemic chemotherapy was approximately 1 week ago. Her history dates back to July 2016 when she presented with significant abnormalities including a left supraclavicular lymphadenopathy, left upper lobe lung mass, extensive mediastinal lymphadenopathy for which she underwent a biopsy of the supraclavicular lymph node and diagnosis of adenocarcinoma was established. After consulting with, as cancer [place] the patient was started on systemic chemotherapy. The patient also had developed a left vocal cord paralysis related to her thoracic tumor. She has been maintained on oxygen at 2 L/m nasal cannula. She has COPD. During this current hospitalization, the patient came into the hospital because of dry heaves, nausea, vomiting along with some diarrhea and dehydration and electrolyte imbalance specifically hypomagnesemia. She came into the hospital she was given normal saline infusion 1 L initially bolus and 1 25 mL an hour as maintenance. I reviewed her chest x-ray. There is some patchy infiltration of the right lung which I suspect representing metastatic disease involving the right lung. Note that the patient was developing nodular lesions in her right lung base on the most recent CAT scan of the chest that was done in October 2016. She is feeling better after being resuscitated with IV fluids. Her white cell count was done which is essentially systemic chemotherapy effect with this is improving. No fever. No signs of any febrile neutropenia. No difficulties in swallowing. No skeletal pain. No other complaints otherwise for now. On 11/30/2016 the patient is doing well. No hypotension. No nausea or vomiting. No chest pain. No shortness of breath. She's was resuscitated with IV fluids. She is ambulating. I think the patient could be potentially discharged home today to be followed up on outpatient basis. She has no specific complaints at all. Objective - Vital Signs Vital signs: Vital Signs Temp 97.4 F L 11/30/16 07:00 Pulse 76 11/30/16 09:39 Resp 20 11/30/16 07:00 BP 147/83 11/30/16 07:00 Pulse Ox 94 L 11/30/16 07:00 Intake & Output 11/29/16 11/30/16 11/30/16 18:59 06:59 18:59 Intake Total 600 900 Balance 600 900 Intake: IV 600 900 Sodium Chloride 0.9% 1, 600 900 000 ml @ 75 mls/hr IV . [id number] [facility] Rx#:[id number] Other: Voiding Method Toilet Toilet Toilet # Voids 3 3 - Exam Head exam was generally normal. There was no scleral icterus or corneal arcus. Mucous membranes were moist.Neck was supple and without jugular venous distension, thyromegaly, or carotid bruits. Carotids were easily palpable bilaterally. There was no adenopathy.lung sounds are diminished bilaterally along with some few rales in the lung bases. There is also some mild prolongation of the extremities of breathing and scattered external wheezes.Cardiac exam revealed the PMI to be normally situated and sized. The rhythm was regular and no extrasystoles were noted during several minutes of auscultation. The first and second heart sounds were normal and physiologic splitting of the second heart sound was noted. There were no murmurs, rubs, clicks, or gallops.Abdominal exam revealed normal bowel sounds. The abdomen was soft, non-tender, and without masses, organomegaly, or appreciable enlargement of the abdominal aorta.Examination of the extremities revealed easily palpable radial, femoral and pedal pulses. There was no cyanosis, clubbing or edema. - Labs CBC & Chem 7: 11/28/16 07:10 11/28/16 07:10 Labs: Abnormal Lab Results - Last 24 Hours (Table) 11/29/16 11/29/16 11/30/16 Range/Units 17:18 20:32 07:16 POC Glucose (mg/dL) 122 H 107 H 126 H (75-99) mg/dL 11/30/16 Range/Units 11:07 POC Glucose (mg/dL) 133 H (75-99) mg/dL Assessment and Plan Plan: Assessment 1 metastatic stage IV adenocarcinoma of the lung status post palliative radiation therapy and systemic chemotherapy with a combination of carboplatinum and Alimta and the patient has received a total of 3 cycles. The patient had a follow-up CAT scan on October 2016 and this was compared to the initial CAT scan from July 2016. The left upper lobe mass has obviously shrunk in size yet there is still significant mediastinal lymphadenopathy which probably is essentially unchanged and in addition there is interval development of nodular pulmonary infiltrate in the right lung which could be consistent with metastatic disease and progression. 2 COPD 3 chronic hypoxic respiratory failure 4 chemotherapy-induced gastrointestinal manifestations of nausea vomiting and diarrhea with dehydration, improved 5 leukopenia, chemotherapy-induced as the patient is on carboplatinum 6 left vocal cord paralysis with secondary hoarseness 7 breast cancer, history of 8 hyperlipidemia 9 hypertension 10 GERD Plan Patient is doing very well. She is ambulating. No major respiratory distress. In my opinion, the patient can discharge home. The patient will continue with Dr. Davis regarding systemic chemotherapy. A follow-up CAT scan will be done after the fourth cycle of systemic chemo to assess disease progression. Prognosis on long-term basis is poor.
--- NOTE | 2016-11-30 17:13 | DS ---
DATE OF ADMISSION: 11/26/2016 DATE OF DISCHARGE: 11/30/2016 ADMISSION DIAGNOSES: 1. Metastatic lung cancer, adenocarcinoma stage IV. 2. Chronic obstructive pulmonary disease exacerbation. 3. Severe debility. 4. Cachexia and malnutrition. DISCHARGE DIAGNOSES: 1. Metastatic lung cancer, adenocarcinoma stage IV. 2. Chronic obstructive pulmonary disease exacerbation. 3. Severe debility. 4. Cachexia and malnutrition. CONSULTATION: Dr. Remy from Pulmonary. HOSPITAL COURSE: This is a 71-year-old female with past medical history significant for to stage IV adenocarcinoma of the lung with metastasis who failed chemo and palliative procedures prior to this admission. Patient presented with severe shortness of breath, treated with IV steroids and breathing treatment. Dr. Remy evaluated the patient and on the second morning he felt that the patient has improved. Patient said that she would like to go home and follow up outpatient with Dr. Remy and with her oncologist. Patient was discharged in stable condition.
== END 2016-11-30 12:18 | disposition home or self-care (01) | DRG 190 ==
LOC: 5ONC 16:06
PROVIDERS: ADMIT Internal Medicine; ATTEND Internal Medicine
DX: J44.1 Chronic obstructive pulmonary disease with (acute) exacerbation (principal); J96.21 Acute and chronic respiratory failure with hypoxia; D61.818 Other pancytopenia; E46 Unspecified protein-calorie malnutrition; C34.90 Malignant neoplasm of unspecified part of unspecified bronchus or lung; E86.0 Dehydration; R64 Cachexia; J38.01 Paralysis of vocal cords and larynx, unilateral; E55.9 Vitamin D deficiency, unspecified; I11.9 Hypertensive heart disease without heart failure; E83.42 Hypomagnesemia; E03.9 Hypothyroidism, unspecified; E78.5 Hyperlipidemia, unspecified; G47.00 Insomnia, unspecified; K21.9 Gastro-esophageal reflux disease without esophagitis; K52.9 Noninfective gastroenteritis and colitis, unspecified; T45.1X5A Adverse effect of antineoplastic and immunosuppressive drugs, initial encounter; Z79.899 Other long term (current) drug therapy; Z85.3 Personal history of malignant neoplasm of breast; Z87.891 Personal history of nicotine dependence
CPT/HCPCS: 70553; 71020; 80053; 81003; 83036; 83735; 84100; 85025; 85027; 87086; 87493; 94640; 94760

== ENCOUNTER → 2016-12-04 | Outpatient (CLI) | payer MEDICARE ==
[2016-12-04 17:53] LABS: Blood Urea Nitrogen 14 mg/dL (7-17); Non-African American GFR(MDRD) >60 (>60 ml/min/1.73 sqM)
--- NOTE | 2016-12-04 19:43 | CT ---
EXAMINATION TYPE: CT ChestAbdPelvis w con DATE OF EXAM: 12/04/2016 7:19 PM COMPARISON: NONE HISTORY: Follow up lung and breast cancer CT DLP: 523.4 mGycm Automated exposure control for dose reduction was used. CONTRAST: CT scan of the chest, abdomen and pelvis is performed with Oral Contrast and with IV Contrast, patien t injected with 100 mL of Omnipaque 300. FINDINGS: There are bilateral moderate pleural effusions. There is extensive mediastinal adenopathy with lymph nodes that measure up to 3 cm. There is subcarinal adenopathy. There is bilateral bronchial adenopath y. There is a mild pericardial effusion. There are numerous bilateral pulmonary nodular infiltrates t hat measure up to 3 cm. There are 3 low density masses in the inferior right lobe of the liver that measure up to 3.5 cm. Navneet e ducts are not dilated. Spleen appears normal. There is no pancreatic mass. There are clips from cho lecystectomy. There is no adrenal mass. Kidneys show satisfactory contrast opacification. There is no hydronephrosis. There is a 3 cm cyst on the left ovary. Bladder distends smoothly. There is no free fluid in the pelv is. There is no sign of a bowel obstruction. There is no sign of appendicitis. There is no evidence o f aortic aneurysm or dissection. I see no focal bony destructive process. There is a rounded 2 cm sof t tissue mass in the subcutaneous fat over the anterior mid abdomen. IMPRESSION: Multiple nodular pulmonary infiltrates with pleural effusions and extensive mediastinal a nd bronchial adenopathy. This is consistent with metastatic disease in this patient with a history of breast cancer. Multiple low-density liver lesions in the inferior right lobe of the liver suggestive of metastatic disease. Left ovarian cyst. Subcutaneous soft tissue mass in the anterior mid abdomen. There is a similar 1 cm subcutaneous nodul e in the left posterior lower chest. Pleural fluid on the right side is increased compared to old CT scan of 10/29/2016. Pulmonary and mediastinal disease as not significantly different.
== END | disposition home or self-care (01) ==
LOC: RADCTMAIN 17:18
PROVIDERS: ATTEND Internal Medicine Hematology & Oncology
DX: C34.90 Malignant neoplasm of unspecified part of unspecified bronchus or lung (principal)
CPT/HCPCS: 82565; 84520; 71260; 74177; Q9967

== ENCOUNTER 2016-12-21 08:37 | Inpatient (IN) | payer MEDICARE ==
[2016-12-21] MEDS ORDERED: ONDANSETRON 4 MG/2 ML VIAL IVP STA (08:46)
[2016-12-21] MEDS ORDERED: IPRATROPIUM-ALBUTEROL 3 ML NEB INHALATION STA (08:46)
[2016-12-21] MEDS ORDERED: MORPHINE SULFATE 4 MG/ML SYRINGE IVP STA (08:50)
--- NOTE | 2016-12-21 08:50 | ED ---
SOB HPI - General Stated Complaint: Difficulty Breathing Time Seen by Provider: 12/21/16 08:43 - History of Present Illness Initial Comments: This is a 71-year-old female with a history of stage IV lung cancer and COPD who presents emergency department for shortness of breath. The shortest of breath started when she woke up this morning. She wears 3 L of oxygen at home and was reportedly 84% on 3 L when EMS arrived. They put her on a nonrebreather however due to her work of breathing decided to start her on CPAP. She did get 125 of Solu-Medrol and also a DuoNeb treatment in route with improvement in her symptoms. The patient states that she feels much more relaxed and improved however is still having some difficulty with breathing. She denies any fevers or chills. No sick contacts. She states that her last chemo treatment was approximately one month ago. Dr. Remy is her net developer contract. She denies any chest pain however does admit to some left lateral back pain that is been present for months. She takes [place] for this. She denies any recent falls. No other complaints. - Related Data Home Medications Medication Instructions Recorded Confirmed Acetaminophen [Tylenol] 1,000 mg PO Q6H PRN 08/08/16 11/26/16 Levothyroxine Sodium [Synthroid] 25 mcg PO DAILY 08/08/16 11/26/16 Omeprazole [PriLOSEC] 20 mg PO AC-BRKFST 08/08/16 11/26/16 Simvastatin [Zocor] 20 mg PO HS 08/08/16 11/26/16 Budesonide-Formot 160-4.5 Mcg 2 puff INHALATION RT-BID 09/18/16 11/26/16 [Symbicort 160-4.5 Mcg Inhaler] ALPRAZolam [Xanax] 0.5 mg PO HS 10/16/16 11/26/16 Ondansetron [Zofran] 4 mg PO Q4H PRN 10/16/16 11/26/16 Acetaminophen-Codeine 300-30mg 1 tab PO Q8H PRN 10/28/16 11/26/16 [Tylenol #3] Docusate Sodium [Dok] 100 mg PO DAILY PRN 10/28/16 11/26/16 Folic Acid 1 mg PO DAILY 10/28/16 11/26/16 Magnesium Oxide [Magox 400] 400 mg PO DAILY 10/28/16 11/26/16 Metoprolol Tartrate [Lopressor] 25 mg PO QAM 10/28/16 11/26/16 Acetaminophen Tab [Tylenol Tab] 1,000 mg PO HS 11/26/16 11/26/16 Allergies Allergy/AdvReac Type Severity Reaction Status Date / Time Penicillins Allergy Rash/Hives Verified 11/26/16 17:59 albuterol [From DuoNeb] AdvReac Nausea Verified 11/26/16 18:05 ipratropium [From DuoNeb] AdvReac Nausea Verified 11/26/16 18:05 Review of Systems ROS Statement: Those systems with pertinent positive or pertinent negative responses have been documented in the HPI. ROS Other: All systems not noted in ROS Statement are negative. Past Medical History Past Medical History: Cancer, GERD/Reflux, Hyperlipidemia, Hypertension, Osteoarthritis (OA), Thyroid Disorder Additional Past Medical History / Comment(s): Metastatic adenocarcinoma of the lung, stage IV disease, remote history of left breast cancer, COPD, chronic hypoxic respiratory failure maintained on oxygen 2 L/m nasal cannula, hyperlipidemia, GERD, hypothyroidism, left-sided vocal cord paralysis, lichen planus, osteoarthritis History of Any Multi-Drug Resistant Organisms: None Reported Past Surgical History: Breast Surgery, Cholecystectomy, Orthopedic Surgery Additional Past Surgical History / Comment(s): left total knee replacement 2012 , gall bladder 2007, left breat lumpectomy in 1999 with radiation treatments and lymph node removal on left side, EGD and colonoscopy that showed 3 polyps, left supraclavicular lymph node biopsy(pt stated was positive). Past Anesthesia/Blood Transfusion Reactions: No Reported Reaction Additional Past Anesthesia/Blood Transfusion Reaction / Comment(s): blood transfusion when she has her children-no ractions to the blood Past Psychological History: No Psychological Hx Reported Additional Psychological History / Comment(s): PT STATED TAKES XANAX AT NIGHT TO HELP SLEEP. PT LIVES WITH / 1 DOG IN SINGLE LEVEL HOME W/ BASEMENT. 2 STEPS TO GET INTO HOME- BASEMENT HAS 13 STEPS BUT DOES'NT HAVE TO GO DOWN STAIRS-[place] IS ON MAIN LEVEL. NO HOME CARE SERVICES. HAD HOME 02/NEBULIZER. 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 Smoking Status: Former smoker Past Alcohol Use History: None Reported Additional Past Alcohol Use History / Comment(s): started smoking 89,quit smoking 12 years ago(2004), was smoking 1 ppd. Past Drug Use History: None Reported - Past Family History Mother Family Medical History: Cancer Additional Family Medical History / Comment(s): bowel Father Family Medical History: CVA/TIA Brother(s) Family Medical History: No Reported History Sister(s) Family Medical History: No Reported History Daughter(s) Family Medical History: No Reported History Son(s) Family Medical History: No Reported History General Exam - General Exam Comments Initial Comments: Constitutional: Awake alert Appears comfortable Head: Normocephalic atraumatic Eyes: no conjunctival injection No scleral icterus EOMI Neck: No JVD Supple Heart: Regular rate rhythm normal S1-S2 no murmurs Lungs: The patient is using accessory muscles and appears in mild respiratory distress there are rhonchi bilaterally with faint wheezes No rales Abdomen: Soft nondistended nontender Extremities: Non edematous DP pulses intact Radial pulses intact Neuro: A&Ox3 No focal neurologic deficits Psych: Appropriate mood and affect Course Vital Signs 12/21/16 12/21/16 12/21/16 09:09 09:11 09:13 Temperature 97.7 F Pulse Rate 132 H 125 H Respiratory 18 20 32 H Rate Blood Pressure 130/82 O2 Sat by Pulse 94 L Oximetry 12/21/16 09:26 Temperature Pulse Rate 129 H Respiratory Rate Blood Pressure O2 Sat by Pulse Oximetry - Reevaluation(s) Reevaluation #1: 12/21/16 09:24 EKG showing sinus tachycardia with a rate of 127. No ST segment changes or T- wave inversions. QTC 438. Other intervals normal. No ectopy. Reevaluation #2: 12/21/16 09:46 Sepsis identified with possible infiltrate on chest x-ray with leukocytosis and tachycardia. I do feel that the patient's symptoms are likely more of a fluid overload etiology and not from an infectious etiology. The patient is on chronic steroids at home and thus leukocytosis could be from that however the patient does meet sepsis criteria and thus I will start antibiotics. I will not give the fluid bolus because the patient's chest x-ray of appears to have fluid overload. Procedures - Sepsis Sepsis Focused Exam #1 Time Sepsis Criteria Met: 09:45 Sepsis Focused Exam Date: 12/21/16 Sepsis Focused Exam Time: Sepsis Focused Exam Complete: Yes Vital Signs & RN Notes Reviewed: Yes Capillary Refill: < 2 Seconds: Fingers, Toes Peripheral Pulses: Normal: Radial (R), Radial (L), Dorsalis Pedis (R), Dorsalis Pedis (L) Skin Color: Normal for Patient Respiratory Exam: rales, decreased breath sounds Cardiovascular Exam: tachycardia Medical Decision Making - Medical Decision Making Is a 71-year-old female presenting for worsening shortness of breath this morning. She is currently comfortable on BiPAP. Labwork was reviewed and showed a mild elevation in troponin however the patient has no chest pain. I believe that this is likely related to tachycardia and respiratory insufficiency however will continue to trend. There was possibility of infiltrate and the patient is started on antibiotics. Chest x-ray was also read as possible pulmonary edema on the patient was given Lasix. I held off on fluid bolus at this time. Spoke to Dr. gusman about the patient and he accepted her to the ICU. Dr. Darden was also updated and the patient requested a CT of the chest which was placed. The patient is currently comfortable and able to be transferred up to the ICU at this time. - Lab Data Result diagrams: 12/21/16 09:01 12/21/16 09:01 Lab Results 12/21/16 12/21/16 12/21/16 Range/Units 09:01 09:01 09:01 WBC 13.6 H (3.8-10.6) k/uL RBC 4.16 (3.80-5.40) m/uL Hgb 12.7 D (11.4-16.0) gm/dL Hct 39.9 (34.0-46.0) % MCV 96.0 (80.0-100.0) fL MCH 30.6 (25.0-35.0) pg MCHC 31.8 (31.0-37.0) g/dL RDW 17.6 H (11.5-15.5) % Plt Count 383 D (150-450) k/uL Neutrophils % 85 % Lymphocytes % 6 % Monocytes % 6 % Eosinophils % 1 % Basophils % 0 % Neutrophils # 11.6 H (1.3-7.7) k/uL Lymphocytes # 0.9 L (1.0-4.8) k/uL Monocytes # 0.8 (0-1.0) k/uL Eosinophils # 0.1 (0-0.7) k/uL Basophils # 0.0 (0-0.2) k/uL Hypochromasia Slight Anisocytosis Slight Macrocytosis Slight PT 11.4 (9.0-12.0) sec INR 1.1 (<1.1) APTT (22.0-30.0) sec VBG pH (7.31-7.41) VBG pCO2 (37-51) mmHg VBG HCO3 (24-28) mmol/L Sodium 136 L (137-145) mmol/L Potassium 4.0 (3.5-5.1) mmol/L Chloride 96 L (98-107) mmol/L Carbon Dioxide 26 (22-30) mmol/L Anion Gap 14 mmol/L BUN 21 H (7-17) mg/dL Creatinine 0.75 (0.52-1.04) mg/dL Est GFR (MDRD) Af Amer >60 (>60 ml/min/1.73 sqM) Est GFR (MDRD) Non-Af >60 (>60 ml/min/1.73 sqM) Glucose 148 H (74-99) mg/dL Plasma Lactic Acid Juan Alberto (0.7-2.0) mmol/L Calcium 9.6 (8.4-10.2) mg/dL Magnesium 1.8 (1.6-2.3) mg/dL Total Bilirubin 0.8 (0.2-1.3) mg/dL AST 27 (14-36) U/L ALT 25 (9-52) U/L Alkaline Phosphatase 113 (38-126) U/L Troponin I (0.000-0.034) ng/mL NT-Pro-B Natriuret Pep pg/mL Total Protein 6.4 (6.3-8.2) g/dL Albumin 3.5 (3.5-5.0) g/dL Influenza Type A RNA (Not Detectd) Influenza Type B (PCR) (Not Detectd) 12/21/16 12/21/16 12/21/16 Range/Units 09:01 09:01 09:01 WBC (3.8-10.6) k/uL RBC (3.80-5.40) m/uL Hgb (11.4-16.0) gm/dL Hct (34.0-46.0) % MCV (80.0-100.0) fL MCH (25.0-35.0) pg MCHC (31.0-37.0) g/dL RDW (11.5-15.5) % Plt Count (150-450) k/uL Neutrophils % % Lymphocytes % % Monocytes % % Eosinophils % % Basophils % % Neutrophils # (1.3-7.7) k/uL Lymphocytes # (1.0-4.8) k/uL Monocytes # (0-1.0) k/uL Eosinophils # (0-0.7) k/uL Basophils # (0-0.2) k/uL Hypochromasia Anisocytosis Macrocytosis PT (9.0-12.0) sec INR (<1.1) APTT (22.0-30.0) sec VBG pH (7.31-7.41) VBG pCO2 (37-51) mmHg VBG HCO3 (24-28) mmol/L Sodium (137-145) mmol/L Potassium (3.5-5.1) mmol/L Chloride (98-107) mmol/L Carbon Dioxide (22-30) mmol/L Anion Gap mmol/L BUN (7-17) mg/dL Creatinine (0.52-1.04) mg/dL Est GFR (MDRD) Af Amer (>60 ml/min/1.73 sqM) Est GFR (MDRD) Non-Af (>60 ml/min/1.73 sqM) Glucose (74-99) mg/dL Plasma Lactic Acid Juan Alberto 2.9 H* (0.7-2.0) mmol/L Calcium (8.4-10.2) mg/dL Magnesium (1.6-2.3) mg/dL Total Bilirubin (0.2-1.3) mg/dL AST (14-36) U/L ALT (9-52) U/L Alkaline Phosphatase (38-126) U/L Troponin I 0.127 H* (0.000-0.034) ng/mL NT-Pro-B Natriuret Pep 420 pg/mL Total Protein (6.3-8.2) g/dL Albumin (3.5-5.0) g/dL Influenza Type A RNA (Not Detectd) Influenza Type B (PCR) (Not Detectd) 12/21/16 12/21/16 12/21/16 Range/Units 09:01 09:19 09:30 WBC (3.8-10.6) k/uL RBC (3.80-5.40) m/uL Hgb (11.4-16.0) gm/dL Hct (34.0-46.0) % MCV (80.0-100.0) fL MCH (25.0-35.0) pg MCHC (31.0-37.0) g/dL RDW (11.5-15.5) % Plt Count (150-450) k/uL Neutrophils % % Lymphocytes % % Monocytes % % Eosinophils % % Basophils % % Neutrophils # (1.3-7.7) k/uL Lymphocytes # (1.0-4.8) k/uL Monocytes # (0-1.0) k/uL Eosinophils # (0-0.7) k/uL Basophils # (0-0.2) k/uL Hypochromasia Anisocytosis Macrocytosis PT (9.0-12.0) sec INR (<1.1) APTT 22.2 (22.0-30.0) sec VBG pH 7.50 H (7.31-7.41) VBG pCO2 34 L (37-51) mmHg VBG HCO3 26 (24-28) mmol/L Sodium (137-145) mmol/L Potassium (3.5-5.1) mmol/L Chloride (98-107) mmol/L Carbon Dioxide (22-30) mmol/L Anion Gap mmol/L BUN (7-17) mg/dL Creatinine (0.52-1.04) mg/dL Est GFR (MDRD) Af Amer (>60 ml/min/1.73 sqM) Est GFR (MDRD) Non-Af (>60 ml/min/1.73 sqM) Glucose (74-99) mg/dL Plasma Lactic Acid Juan Alberto (0.7-2.0) mmol/L Calcium (8.4-10.2) mg/dL Magnesium (1.6-2.3) mg/dL Total Bilirubin (0.2-1.3) mg/dL AST (14-36) U/L ALT (9-52) U/L Alkaline Phosphatase (38-126) U/L Troponin I (0.000-0.034) ng/mL NT-Pro-B Natriuret Pep pg/mL Total Protein (6.3-8.2) g/dL Albumin (3.5-5.0) g/dL Influenza Type A RNA Not Detected (Not Detectd) Influenza Type B (PCR) Not Detected (Not Detectd) Disposition Clinical Impression: Acute respiratory failure with hypoxia, Troponin level elevated, Fluid overload , COPD (chronic obstructive pulmonary disease) Disposition: ADMITTED IP TO THIS HOSP Condition: Critical
[2016-12-21] MEDS ORDERED: LEVALBUTEROL NEB 1.25 MG/3 ML AMP INHALATION STA (09:01)
[2016-12-21] MEDS ORDERED: IPRATROPIUM 0.5 MG/2.5 ML NEBU INHALATION STA (09:02)
[2016-12-21 09:20] LABS: INR 1.1 (<1.1); Prothrombin Time 11.4 sec (9.0-12.0)
[2016-12-21 09:23] LABS: Anisocytosis Slight; Basophils % (A) 0 %; CH 30.4; CHCM 31.8; Eosinophils # (A) 0.1 k/uL (0-0.7); Eosinophils % (A) 1 %; HCT 39.9 % (34.0-46.0); HDW 2.85; Hypochromasia Slight; Luc # (Auto) 0.23; Luc % (Auto) 2; Lymphocytes # (A) 0.9 k/uL (1.0-4.8); Lymphocytes % (A) 6 %; MCH 30.6 pg (25.0-35.0); MCHC 31.8 g/dL (31.0-37.0); Macrocytosis Slight; Mean Platelet Volume 6.6; Monocytes # (A) 0.8 k/uL (0-1.0); Monocytes % (A) 6 %; Neutrophils # (A) 11.6 k/uL (1.3-7.7); Neutrophils % (A) 85 %; RBC 4.16 m/uL (3.80-5.40); RDW 17.6 % (11.5-15.5); WBC 13.6 k/uL (3.8-10.6)
[2016-12-21 09:24] LABS: ALT 25 U/L (9-52); AST 27 U/L (14-36); Alkaline Phosphatase 113 U/L (38-126); Anion Gap 14 mmol/L; Blood Urea Nitrogen 21 mg/dL (7-17); Calcium 9.6 mg/dL (8.4-10.2); Carbon Dioxide 26 mmol/L (22-30); Chloride 96 mmol/L (98-107); Glucose 148 mg/dL (74-99); Magnesium 1.8 mg/dL (1.6-2.3); Non-African American GFR(MDRD) >60 (>60 ml/min/1.73 sqM); Sodium 136 mmol/L (137-145); Total Bilirubin 0.8 mg/dL (0.2-1.3); Total Protein 6.4 g/dL (6.3-8.2)
[2016-12-21 09:30] LABS: HGB 12.7 gm/dL (11.4-16.0)
[2016-12-21] MEDS ORDERED: FUROSEMIDE 10 MG/ML 4 ML VIAL IV STA (09:33)
--- NOTE | 2016-12-21 09:37 | XR ---
EXAMINATION TYPE: XR chest 1V portable DATE OF EXAM: 12/21/2016 9:21 AM Comparison: 11/26/2016 Clinical History: 71-year-old female with pain, shortness of breath, emphysema. Findings: Heart is borderline enlarged. Diffuse interstitial prominence persists with hyperinflation. Interstit ial and patchy and confluent airspace opacities are increased, particularly in the right greater than left mid and lower lungs. Hazy density at the left base with retrocardiac opacity also increased. Impression: 1. Increasing interstitial and right greater than left patchy airspace opacities. Correlate for COPD with superimposed CHF and pulmonary edema. 2. New small left pleural effusion with adjacent atelectasis and/or consolidation.
[2016-12-21 09:43] LABS: VBG PH 7.5 (7.31-7.41)
[2016-12-21] MEDS ORDERED: LEVOFLOXACIN 500MG-D5W PMX 500 MG in DEXTROSE/WATER 1 100ML.BAG IVPB STA (09:45)
[2016-12-21] MEDS ORDERED: RX INFO: IV CONTRAST WAS GIVEN 1 EACH MISC MISCELLANE PRN (10:26)
[2016-12-21] MEDS ORDERED: NALOXONE 0.4 MG/ML 1 ML VIAL IV PRN (10:27)
[2016-12-21] MEDS ORDERED: VANCOMYCIN 1,000 MG in SODIUM CHLORIDE 0.9% 250 ML IVPB ONE (11:00)
[2016-12-21 13:02] LABS: Glucose,Whole Blood 121 mg/dL (75-99)
--- NOTE | 2016-12-21 14:09 | P.CONS ---
History of Present Illness - Reason for Consult Consult date: 12/21/16 lung adenocarcinoma Requesting physician: Pauly Darden - Chief Complaint DEE DEE - History of Present Illness Mrs. Calero is a very pleasant female patient of Dr. Davis who presented with a persistent cough and exertional dyspnea starting about April 2016. Patient was treated with antibiotics with incomplete relief. 07/18/2016 chest x-ray showed a suspicious celebration of theleft upper lobe. CT on August 04 revealed a 4.2 cm mass like area of consolidation in the inferior lingula with borderline enlarged left supraclavicular lymph node. CT-guided biopsy 2015 of the left supraclavicular lymph node was positive for metastatic adenocarcinoma, ICH stains favor upper GI, pancreaticobiliary versus rectal as a primary. Patient was referred to Dr. Winston HO, pathology was reviewed and felt to be compatible with a primary lung cancer, as of note EGD and colonoscopy were both negative. Repeat computed tomography scan September 01 revealed the left upper lobe mass with collapse, bilateral lung nodules, left supraclavicular lymph node and right hilar adenopathy with mediastinal lymph node enlargement and left pleural effusion. Due to dyspnea and left upper lobe collapse patient received palliative radiation therapy. This was completed on 09/22/2016. Patient was started on carboplatin and Alimta October 09. She completed 3 cycles as of the first week of November. patient did have her MRI of the brain on 318 that was negative for malignancy. Patient had a CT of the chest abdomen and pelvis on 323 showing increase in lymph node size, stable pulmonary nodules, new pleural effusion and questionable metastatic disease to the liver. Patient was due to follow up in the office tomorrow with Dr. Davis, I understand, to discuss implementation of immunotherapy after an adequate washout period from chemotherapy. Patient is on BiPAP when seen, her family supplements the information I gathered from her. Patient had been experiencing progressive difficulty in breathing since Thursday, she was to the point where she could not even make a few steps to the bathroom without being significantly short of breath requiring prolonged periods of recovery. Patient denies any fevers, there have been 2 episodes of hemoptysis, patient does have pleuritic-type chest pain with deep inspiration occurring mainly on the left rib cage area, patient is not experiencing palpitations sensations at this time, no nausea or vomiting, patient has no appetite, no abdominal pain or distention, patient's last bowel movement was about 1-2 days ago, denies diarrhea or constipation, patient is weak. Review of Systems All systems: negative Constitutional: Reports as per HPI Past Medical History Past Medical History: Cancer, GERD/Reflux, Hyperlipidemia, Hypertension, Osteoarthritis (OA), Thyroid Disorder Additional Past Medical History / Comment(s): Metastatic adenocarcinoma of the lung, stage IV disease, remote history of left breast cancer, COPD, chronic hypoxic respiratory failure maintained on oxygen 2 L/m nasal cannula, hyperlipidemia, GERD, hypothyroidism, left-sided vocal cord paralysis, lichen planus, osteoarthritis History of Any Multi-Drug Resistant Organisms: None Reported Past Surgical History: Breast Surgery, Cholecystectomy, Orthopedic Surgery Additional Past Surgical History / Comment(s): left total knee replacement 2012 , gall bladder 2007, left breat lumpectomy in 1999 with radiation treatments and lymph node removal on left side, EGD and colonoscopy that showed 3 polyps, left supraclavicular lymph node biopsy(pt stated was positive). Past Anesthesia/Blood Transfusion Reactions: No Reported Reaction Additional Past Anesthesia/Blood Transfusion Reaction / Comm: blood transfusion when she has her children-no ractions to the blood Past Psychological History: No Psychological Hx Reported Additional Psychological History / Comment(s): PT STATED TAKES XANAX AT NIGHT TO HELP SLEEP. PT LIVES WITH / 1 DOG IN SINGLE LEVEL HOME W/ BASEMENT. 2 STEPS TO GET INTO HOME- BASEMENT HAS 13 STEPS BUT DOES'NT HAVE TO GO DOWN STAIRS-LAUNDRY IS ON MAIN LEVEL. NO HOME CARE SERVICES. HAD HOME 02/NEBULIZER. 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 Smoking Status: Former smoker Past Alcohol Use History: None Reported Additional Past Alcohol Use History / Comment(s): started smoking 1960,quit smoking 12 years ago(2004), was smoking 1 ppd. Past Drug Use History: None Reported - Past Family History Mother Family Medical History: Cancer Additional Family Medical History / Comment(s): bowel Father Family Medical History: CVA/TIA Brother(s) Family Medical History: No Reported History Sister(s) Family Medical History: No Reported History Daughter(s) Family Medical History: No Reported History Son(s) Family Medical History: No Reported History Medications and Allergies Home Medications Medication Instructions Recorded Confirmed Type Acetaminophen [Tylenol] 1,000 mg PO Q6H PRN 08/08/16 12/21/16 History Levothyroxine Sodium [Synthroid] 25 mcg PO DAILY 08/08/16 12/21/16 History Omeprazole [PriLOSEC] 20 mg PO AC-BRKFST 08/08/16 12/21/16 History Simvastatin [Zocor] 20 mg PO HS 08/08/16 12/21/16 History Budesonide-Formot 160-4.5 Mcg 2 puff INHALATION RT-BID 09/18/16 12/21/16 History [Symbicort 160-4.5 Mcg Inhaler] ALPRAZolam [Xanax] 0.5 mg PO HS 10/16/16 12/21/16 History Ondansetron [Zofran] 4 mg PO Q4H PRN 10/16/16 12/21/16 History Acetaminophen-Codeine 300-30mg 1 tab PO Q8H PRN 10/28/16 12/21/16 History [Tylenol #3] Docusate Sodium [Dok] 100 mg PO DAILY PRN 10/28/16 12/21/16 History Folic Acid 1 mg PO DAILY 10/28/16 12/21/16 History Magnesium Oxide [Magox 400] 400 mg PO DAILY 10/28/16 12/21/16 History Metoprolol Tartrate [Lopressor] 25 mg PO QAM 10/28/16 12/21/16 History Acetaminophen Tab [Tylenol Tab] 1,000 mg PO HS 11/26/16 12/21/16 History HYDROcodone/APAP 5-325MG [[place] 1 tab PO Q6HR PRN 12/21/16 12/21/16 History 5-325] LORazepam [Ativan] 0.5 mg PO TID PRN 12/21/16 12/21/16 History Levalbuterol HCl [Xopenex] 1.25 mg INHALATION RT-TID 12/21/16 12/21/16 History Mirtazapine [Remeron] 15 mg PO HS 12/21/16 12/21/16 History predniSONE 10 mg PO BID 12/21/16 12/21/16 History Allergies Allergy/AdvReac Type Severity Reaction Status Date / Time Penicillins Allergy Rash/Hives Verified 12/21/16 11:40 albuterol [From DuoNeb] AdvReac Nausea Verified 12/21/16 11:40 ipratropium [From DuoNeb] AdvReac Nausea Verified 12/21/16 11:40 Physical Exam Vitals: Vital Signs Temp Pulse Resp BP Pulse Ox 12/21/16 13:03 97.7 F 121 H 22 101/70 96 12/21/16 11:40 121 H 22 101/70 96 12/21/16 11:17 133 H 18 105/68 93 L 12/21/16 10:36 125 H 18 109/73 93 L Intake and Output 12/20/16 12/21/16 12/21/16 22:59 06:59 14:59 Intake Total 125 Output Total 60 Balance 65 Intake: Intake, IV Titration 125 Amount Vancomycin 1,000 mg In 125 Sodium Chloride 0.9% 250 ml @ 125 mls/hr IVPB ONCE ONE Rx#:[id number] Output: Urine 60 Other: # Voids 1 - Constitutional General appearance: cooperative, mild distress, thin - EENT dry mucus membranes and lips Eyes: anicteric sclerae - Respiratory Respiratory: bilateral: diminished - Cardiovascular sinus tachycardia Heart sounds: normal: S1, S2 leg Peripheral Edema: bilateral: None - Gastrointestinal General gastrointestinal: no absent bowel sounds, decreased bowel sounds, no distended, no hepatomegaly, no hyperactive bowel sounds, no normal bowel sounds , no organomegaly, no rigid, no scaphoid, soft, no splenomegaly, no tenderness, no umbilical hernia, no ventral hernia - Integumentary Integumentary: pale - Neurologic Neurologic: CNII-XII intact - Musculoskeletal Musculoskeletal: generalized weakness - Psychiatric Psychiatric: A&O x's 3, appropriate affect, intact judgment & insight Results CBC & Chem 7: 12/21/16 09:01 12/21/16 09:01 Labs: Abnormal Lab Results - Last 24 Hours (Table) 12/21/16 Range/Units 13:00 POC Glucose (mg/dL) 121 H (75-99) mg/dL Chest x-ray: report reviewed Assessment and Plan (1) Adenocarcinoma of lung Narrative/Plan: Patient has known metastatic adenocarcinoma of the lung, last chemotherapy was somewhere about 4 weeks ago. MRI on 318 of the brain was negative for malignancy, CT of the chest abdomen and pelvis on 323 showed increase in size of lymph nodes, stable pulmonary nodules, development of a new pleural effusion and questionable metastatic disease in the liver. From a discussion with the family it appears they have spoken with Dr. Davis as it is been discussed with them that the chemotherapy was not felt to be effective and there had been discussion of immunotherapy. Patient will require improvement in her pulmonary status prior to initiating any further treatment, and daughter as well as patient understand. CTA has been ordered of the chest, results pending, case will be discussed with Dr. Davis, any additional testing will be ordered as appropriate. Agree with current plan of care. Patient does state improvement in respiratory status since admission. Patient is being followed by critical care,pulmonary and cardiology. Status: Chronic
[2016-12-21] MEDS: methylPREDNISolone SOD SUCCI 125 MG/2 ML VIAL IV SCH ×2 (14:59→18:50)
[2016-12-21] MEDS ORDERED: ONDANSETRON 4 MG TAB PO PRN (15:12)
[2016-12-21] MEDS ORDERED: HYDROcodone/APAP 5-325MG 1 EACH TAB PO PRN (15:12)
[2016-12-21] MEDS ORDERED: Acetaminophen-Codeine 300-30mg TAB PO PRN (15:12)
[2016-12-21] MEDS ORDERED: DOCUSATE 100 MG CAP PO PRN (15:12)
[2016-12-21] MEDS ORDERED: LORazepam 0.5 MG TAB PO PRN (15:12)
[2016-12-21 15:15] LABS: Creatine Kinase MB 1.7 ng/mL (0.0-2.4)
[2016-12-21 15:16] LABS: Troponin I 0.124 ng/mL (0.000-0.034)
--- NOTE | 2016-12-21 17:29 | CT ---
CT CHEST FOR PULMONARY EMBOLISM. EXAMINATION TYPE: CT angio chest DATE OF EXAM: 12/21/2016 4:48 PM INDICATION: Shortness of breath and cough CT DLP: 189.4 mGycm, Automated exposure control for dose reduction was used. CONTRAST: Patient injected with 100 mL of Omnipaque 350. COMPARISON: 12/04/2016 TECHNIQUE: CT of the chest is performed on a spiral scan at 2 mm thick sections. Study is performed with intravenous contrast timed for evaluation for pulmonary embolism. This will limit additional po rtions of the evaluation. 3-D MIP images reconstructed by the technologist are reviewed on the compu ter in the coronal and sagittal planes. FINDINGS: No persistent filling defects are evident to suggest an acute pulmonary embolism. The ascending aorta diameter at the level of the main pulmonary artery is 3.0 cm. The main pulmonary artery diameter at the bifurcation is 2.8 cm. Bilateral apical thickening is present. There are multiple patchy areas of infiltrate. Small right an d moderate left pleural effusion is present. There are scattered areas of increased lobular densities associated with the areas of pneumonitis. Underlying masses should be suspected. Enlarged mediastinal adenopathy is present. Enlarged pretracheal lymph node measures 2.2 cm. 1.9 cm s ubcarinal adenopathy is present. Enlarged right hilar adenopathy measuring 2.2 cm is present. Multip le enlarged mediastinal lymph nodes are abnormal but more homogenous density on the current examinati on and are larger than the comparison. Reference lymph node 2.2 cm in the pretracheal space up from 2 .1 cm. Largest mass appears to lie within the left lung base measuring 1.9 x 2.5 cm. Series 4 image 110. There is fullness at the level of the thyroid gland. A large left supraclavicular lymph node is likel y present. Patient's reported metastatic lesions to the liver are not identified on this phase of contrast. Ther e is a new 1.8 cm nodule within the subcutaneous tissues in the epigastric region. IMPRESSIONS: 1. No acute pulmonary embolism. 2. Enlarging pulmonary nodules, the largest at the left base is increased in size to 1.9 x 2.5 cm fro m 1.7 x 2.1 cm. 3. Multiple enlarged mediastinal lymph nodes are abnormal but more homogenous density on the current examination and are larger than the comparison. Reference lymph node 2.2 cm in the pretracheal space up from 2.1 cm. 4. New nodule within subcutaneous tissues epigastric region. 5 patient's liver metastases are not adair ntified on the current exam.
--- NOTE | 2016-12-21 17:43 | P.CNPUL ---
History of Present Illness Consult date: 12/21/16 Reason for consult: dyspnea History of present illness: 71-year-old female patient with known history of metastatic adenocarcinoma of the lung, stage IV disease treated with systemic chemotherapy with a combination of carboplatinum and Alimta. The patient had completed a total of 3 cycles of systemic chemotherapy and radiation therapy to her chest. The patient initially came to presented with a left supraclavicular lymphadenopathy and a left upper lobe mass with extensive mediastinal lymphadenopathy for which the patient underwent a biopsy of the supraclavicular lymph node and the patient was diagnosed having an adenocarcinoma of the lung. The patient was also found to have a left vocal cord paralysis related to the thoracic tumor. The patient has COPD and chronic hypoxic respiratory failure. The patient was started on systemic chemotherapy. Her latest hospitalization was in November 2016 where the patient presented with dry heaves and nausea vomiting and dehydration and electrodes imbalance post systemic chemotherapy. The patient was stabilized and she was discharged home. Since then the patient has not received any further systemic chemotherapy. The patient completed her last session of systemic chemotherapy approximately a month ago. She is under the care of Dr. Davis and she is being considered for immunotherapy. The patient came into the hospital because of worsening shortness of breath. This started this morning as the patient woke up with increased difficulty breathing. She typically uses 3 L of oxygen at home and she was reported to be hypoxic with a pulse ox of 84% of these of oxygen nasal cannula up on EMS arrival to her house. The patient was placed on a honey percent nonrebreather. She was brought to the emergency which she was given DuoNeb nebulized treatments and IV Solu-Medrol and she was placed on BiPAP treatment. Lactic acid level was elevated at 2.8 and subsequently dropped down to 1.8. First set of troponins of 0.127. White cell count is not elevated at 13.6. Rest of the electrodes are all within normal limits. The BNP level is at 420. I discussed the case with the emergency department doctor and I asked him to proceed with a computed tomography scan of the chest which Completed. I reviewed the CAT scan of the chest and neck compared to the earlier CAT scan that was done in November 2016. There is worsening and another metastatic lesions throughout the lung fischer bilaterally more so on the right. The pleural fluids are essentially stable in the lung bases probably likely worse on the left. There is no evidence of pulmonary embolism. The patient is currently on 3 L and she is off the BiPAP. Review of Systems Very poor baseline performance and functional status and the rest of the positive findings are almost above in history of present illness Past Medical History Past Medical History: Cancer, GERD/Reflux, Hyperlipidemia, Hypertension, Osteoarthritis (OA), Thyroid Disorder Additional Past Medical History / Comment(s): Metastatic adenocarcinoma of the lung, stage IV disease, remote history of left breast cancer, COPD, chronic hypoxic respiratory failure maintained on oxygen 2 L/m nasal cannula, hyperlipidemia, GERD, hypothyroidism, left-sided vocal cord paralysis, lichen planus, osteoarthritis History of Any Multi-Drug Resistant Organisms: None Reported Past Surgical History: Breast Surgery, Cholecystectomy, Orthopedic Surgery Additional Past Surgical History / Comment(s): left total knee replacement 2012 , gall bladder 2007, left breat lumpectomy in 1999 with radiation treatments and lymph node removal on left side, EGD and colonoscopy that showed 3 polyps, left supraclavicular lymph node biopsy(pt stated was positive). Past Anesthesia/Blood Transfusion Reactions: No Reported Reaction Additional Past Anesthesia/Blood Transfusion Reaction / Comment(s): blood transfusion when she has her children-no ractions to the blood Past Psychological History: No Psychological Hx Reported Additional Psychological History / Comment(s): PT STATED TAKES XANAX AT NIGHT TO HELP SLEEP. PT LIVES WITH / 1 DOG IN SINGLE LEVEL HOME W/ BASEMENT. 2 STEPS TO GET INTO HOME- [place] HAS 13 STEPS BUT DOES'NT HAVE TO GO DOWN STAIRS-[place] IS ON MAIN LEVEL. NO HOME CARE SERVICES. HAD HOME 02/NEBULIZER. 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 Smoking Status: Former smoker Past Alcohol Use History: None Reported Additional Past Alcohol Use History / Comment(s): started smoking 1960,quit smoking 12 years ago(2004), was smoking 1 ppd. Past Drug Use History: None Reported - Past Family History Mother Family Medical History: Cancer Additional Family Medical History / Comment(s): bowel Father Family Medical History: CVA/TIA Brother(s) Family Medical History: No Reported History Sister(s) Family Medical History: No Reported History Daughter(s) Family Medical History: No Reported History Son(s) Family Medical History: No Reported History Medications and Allergies Home Medications Medication Instructions Recorded Confirmed Type Acetaminophen [Tylenol] 1,000 mg PO Q6H PRN 08/08/16 12/21/16 History Levothyroxine Sodium [Synthroid] 25 mcg PO DAILY 08/08/16 12/21/16 History Omeprazole [PriLOSEC] 20 mg PO AC-BRKFST 08/08/16 12/21/16 History Simvastatin [Zocor] 20 mg PO HS 08/08/16 12/21/16 History Budesonide-Formot 160-4.5 Mcg 2 puff INHALATION RT-BID 09/18/16 12/21/16 History [Symbicort 160-4.5 Mcg Inhaler] ALPRAZolam [Xanax] 0.5 mg PO HS 10/16/16 12/21/16 History Ondansetron [Zofran] 4 mg PO Q4H PRN 10/16/16 12/21/16 History Acetaminophen-Codeine 300-30mg 1 tab PO Q8H PRN 10/28/16 12/21/16 History [Tylenol #3] Docusate Sodium [Dok] 100 mg PO DAILY PRN 10/28/16 12/21/16 History Folic Acid 1 mg PO DAILY 10/28/16 12/21/16 History Magnesium Oxide [Magox 400] 400 mg PO DAILY 10/28/16 12/21/16 History Metoprolol Tartrate [Lopressor] 25 mg PO QAM 10/28/16 12/21/16 History Acetaminophen Tab [Tylenol Tab] 1,000 mg PO HS 11/26/16 12/21/16 History HYDROcodone/APAP 5-325MG [[place] 1 tab PO Q6HR PRN 12/21/16 12/21/16 History 5-325] LORazepam [Ativan] 0.5 mg PO TID PRN 12/21/16 12/21/16 History Levalbuterol HCl [Xopenex] 1.25 mg INHALATION RT-TID 12/21/16 12/21/16 History Mirtazapine [Remeron] 15 mg PO HS 12/21/16 12/21/16 History predniSONE 10 mg PO BID 12/21/16 12/21/16 History Allergies Allergy/AdvReac Type Severity Reaction Status Date / Time Penicillins Allergy Rash/Hives Verified 12/21/16 11:40 albuterol [From DuoNeb] AdvReac Nausea Verified 12/21/16 11:40 ipratropium [From DuoNeb] AdvReac Nausea Verified 12/21/16 11:40 Physical Exam Vitals: Vital Signs Temp Pulse Resp BP BP Pulse Ox 12/21/16 14:00 124 H 19 114/70 91 L 12/21/16 13:52 96.8 F L 21 119/77 12/21/16 13:03 97.7 F 121 H 22 101/70 96 12/21/16 13:00 123 H 21 156/90 95 12/21/16 11:40 121 H 22 101/70 96 12/21/16 11:17 133 H 18 105/68 93 L 12/21/16 10:36 125 H 18 109/73 93 L Intake and Output 12/21/16 12/21/16 12/21/16 06:59 14:59 22:59 Intake Total 125 Output Total 60 Balance 65 Intake: Intake, IV Titration 125 Amount Vancomycin 1,000 mg In 125 Sodium Chloride 0.9% 250 ml @ 125 mls/hr IVPB ONCE ONE Rx#:[id number] Output: Urine 60 Other: # Voids 1 Weight 61.689 kg Patient Weight 12/22/16 06:59 Weight 61.689 kg Head exam was generally normal. There was no scleral icterus or corneal arcus. Mucous membranes were moist.Neck was supple and without jugular venous distension, thyromegaly, or carotid bruits. Carotids were easily palpable bilaterally. There was no adenopathy. Lung sounds are diminished bilaterally and there is few rales over the lung bases. There are diminished breath sounds and there is prolongation of the expiratory phase of breathing and scattered expiratory wheezes heard throughout the lung fischer bilaterally.Cardiac exam revealed the PMI to be normally situated and sized. The rhythm was regular and no extrasystoles were noted during several minutes of auscultation. The first and second heart sounds were normal and physiologic splitting of the second heart sound was noted. There were no murmurs, rubs, clicks, or gallops.Abdominal exam revealed normal bowel sounds. The abdomen was soft, non- tender, and without masses, organomegaly, or appreciable enlargement of the abdominal aorta.Examination of the extremities revealed easily palpable radial, femoral and pedal pulses. There was no cyanosis, clubbing or edema. Results - Laboratory Findings CBC and BMP: 12/21/16 09:01 12/21/16 09:01 PT/INR, D-dimer PT 11.4 sec (9.0-12.0) 12/21/16 09:01 INR 1.1 (<1.1) 12/21/16 09:01 Abnormal lab findings: Abnormal Labs 12/21/16 12/21/16 13:00 14:36 POC Glucose (mg/dL) 121 H Total Creatine Kinase 28 L Troponin I 0.124 H* - Diagnostic Findings CT scan - chest: image reviewed Assessment and Plan Plan: Assessment 1 metastatic stage IV adenocarcinoma of the lung, post systemic chemotherapy with 3 cycles of carboplatinum and Alimta and palliative radiation therapy. 2 acute on top of chronic respiratory failure with worsening hypoxemia. CAT scan of the chest was noted and there is no evidence of pulmonary embolism yet that is progression of the nodular metastatic lesions bilaterally more so on the right. In addition, the patient has noted increase in size of the lymphadenopathy in the axillary in the supraclavicular area. This is in agreement with her disease progression. Acute decompensation is also related to her COPD exacerbation. Patient will be treated 3 chronic bilateral pleural effusions, likely malignant 4 advanced COPD with chronic hypoxic respiratory failure maintained on 3 L of oxygen by nasal cannula on outpatient basis 5 left vocal cord paralysis with secondary hoarseness 6 breast cancer history of 7 hyperlipidemia 8 hypertension 9 GE reflux 10 generalized weakness with diminished oral intake and poor baseline performance and functional status. Plan We will continue DuoNeb nebulized treatment [id number]. IV Solu Medrol 60 every 6 hours. Pulmicort and Brovana about treatments twice a day. Apparently antibiotic coverage in spite of no active pneumonic process. Tussionex for cough. Insert the [place] catheter. Heparin subcu for DVT prophylaxis. Prognosis obviously poor. I discussed the findings of the CAT scan with the family and I showed him the images. Unfortunately patient's disease is quite extensive and seems to be terminal at this stage. Alternatives should be discussed with the patient and her family and I initiated this discussion today with them. We'll keep the patient ICU for another 24 hours to the condition is further stabilized and further recommendations are to follow based on her progress.
[2016-12-21 18:27] LABS: Glucose,Whole Blood 118 mg/dL (75-99)
[2016-12-21 18:41] LABS: Appearance,Urine Cloudy (Clear); Bacteria,Urine Occasional /hpf; Bilirubin,Urine Negative (Negative); Glucose,Urine (UA) Negative (Negative); Ketones,Urine Trace (Negative); Leukocyte Esterase,Urine Large (Negative); Mucus,Urine Occasional /hpf; Nitrite,Urine Negative (Negative); Particle Count 5965; Protein,Urine Negative (Negative); Specific Gravity,Urine 1.016 (1.001-1.035); Squamous Epithelial Cell,Urine 2 /hpf (0-4); UA Billing (MACRO vs. MICRO) MICRO; Urobilinogen,Urine <2.0 mg/dL (<2.0); WBC,Urine 22 /hpf (0-5)
[2016-12-21] MEDS: INSULIN LISPRO (humaLOG) 300 UNIT/3 ML VIAL SQ SCH (18:49)
[2016-12-21] MEDS: HEPARIN SODIUM,PORCINE 5,000 UNIT/ML 1 ML VIAL SQ SCH (18:50)
[2016-12-21] MEDS ORDERED: FORMOTEROL FUMARATE 20 MCG/2 ML NEBU INHALATION SCH (20:00)
[2016-12-21] MEDS ORDERED: SYMBICORT 160-4.5 MCG INHALER INHALATION SCH (20:00)
[2016-12-21] MEDS: LEVALBUTEROL NEB 1.25 MG/3 ML AMP INHALATION SCH (20:48)
[2016-12-21] MEDS: FORMOTEROL FUMARATE 20 MCG/2 ML NEBU INHALATION SCH (20:48)
[2016-12-21] MEDS ORDERED: ATORVASTATIN 10 MG TAB PO SCH (21:00)
--- NOTE | 2016-12-21 21:34 | P.HPIM ---
History of Present Illness H&P Date: 12/21/16 Chief Complaint: Dyspnea This is a 71-year-old female patient of Dr. Kiana Davis has a recent diagnosis of a lung mass which is considered to be of a primary lung. Her history dates back to around a few months back when she started having symptoms of increased cough and shortness of breath and she was given several rounds of antibiotics and ultimately she had a CAT scan of the chest on April 2016 which showed a mass like consolidation in the lingula in addition to left hilar, subcarinal, right hilar and an left supraclavicular lymphadenopathy. Based on this, the patient was sent on July 2016 for a fine-needle aspirate of the supraclavicular lymph node and a diagnosis was consistent with adenocarcinoma and the pathologist favored a GI origin rather than lungs. A PET scan was also completed which also confirmed the findings with her was a left upper lobe mass extending to the left hilar and supraclavicular area with intense uptake consistent with primary lung carcinoma. Based on the path report, the patient was referred to [facility] for a second opinion. The patient was able to see Dr. Casie Montero and she is seeing Dr. Davis locally. In addition, the mediastinal mass is causing mass effect on the mid esophagus causing proximal esophageal dilatation. Apparently the patient was discharged and has been following with Dr. Davis and she has been getting chemotherapy, her last chemotherapy in the form of carboplatin and Alimta Patient did receive 10 courses of radiation therapy prior to her chemotherapy.. She has 1 more course of chemotherapy however this is abandoned secondary to poor performance based on her last admission from our facility 11/30/2016. sHe was admitted at that time secondary to COPD exacerbation,cachexia, malnutrition, metastatic lung cancer stage IV adenocarcinoma. 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 from her last admission no new medications she was discharged with tapering prednisone and oral antibiotic then She was discharged to home, she was using her O2 at 3 L nasal cannula from a previous of 2 L a cannula as the patient has increasing difficulty, nebulized treatments 3 times a day is not very helpful, she has increased shortness of breath bilateral pleuritic rib cage pain, weight loss, diminished appetite, no fever no aspiration, patient denies any lower extremity edema or calf pain, she has pleurisy mainly bilateral lower rib cage pain patient has no nausea no vomiting he was evaluated by the EMS she required CPAP treatments and routed to the emergency room Patient was evaluated in emergency room she required BiPAP treatments at that time secondary to hypoxemia and increasing respiratory distress, she was subsequently admitted. Chest x-ray shows pulmonary edema, during my examination on her in the emergency room, she requires BiPAP treatments however she is much more comfortable after diuresing with IV Lasix. Computed tomography scan of the chest failed to reveal any pulmonary emboli however there is significant tumor burden noted on her CT which seems to be worsening compared to her previous CT in November,, bilateral pleural effusion noted with nodules superimposed pneumonitis She was subsequently transferred to ICU her CODE STATUS is DO NOT RESUSCITATE no ventilatory support where she would be seen in consultation by Dr. Remy and Dr. Davis and Dr. KIMBERLI Cerna. Review of Systems Constitutional: Reports as per HPI, Reports anorexia, Reports chills, Reports fatigue, Reports lethargy, Reports poor appetite, Reports sweats, Reports weight loss Ears, nose, mouth and throat: Reports as per HPI, Reports voice changes, Denies ant. neck pain, Denies bleeding gums, Denies dental pain, Denies dysphagia, Denies epistaxis, Denies headache, Denies hoarseness, Denies mouth pain, Denies nasal congestion, Denies nasal discharge, Denies neck fullness/pressure, Denies neck lump, Denies nose pain, Denies odynophagia, Denies post-nasal drip, Denies sinus pain, Denies sinus pressure, Denies swelling in mouth, Denies swelling in throat, Denies sore throat, Denies vertigo Cardiovascular: Reports as per HPI, Denies chest pain, Denies claudication, Denies decreased exercise tolerance, Denies dyspnea on exertion, Denies edema, Denies high blood pressure, Denies irregular heart beat, Denies leg edema, Denies lightheadedness, Denies orthopnea, Denies palpitations, Denies paroxysmal nocturnal dyspnea, Denies phlebitis, Denies rapid heart beat, Denies shortness of breath, Denies syncope Respiratory: Reports as per HPI, Reports cough, Reports cough with sputum, Reports dyspnea, Reports excessive sputum, Reports home oxygen, Reports pain on inspiration Gastrointestinal: Reports as per HPI, Denies abdominal pain, Denies belching, Denies bloating, Denies BRBPR, Denies change in bowel habits, Denies coffee ground emesis, Denies constipation, Denies diarrhea, Denies dyspepsia, Denies early satiety, Denies excessive gas, Denies heartburn, Denies hematemesis, Denies hematochezia, Denies indigestion, Denies jaundice, Denies lactose intolerance, Denies loss of appetite, Denies melena, Denies nausea, Denies vomiting Genitourinary: Reports as per HPI, Denies abnormal vaginal bleeding, Denies decreased libido, Denies difficulty conceiving, Denies difficulty voiding, Denies dysmenorrhea, Denies dyspareunia, Denies dysuria, Denies flank pain, Denies genital sores, Denies hematuria, Denies hot flashes, Denies incomplete emptying, Denies kidney stones, Denies menorrhagia, Denies mixed incontinence, Denies nocturia, Denies pelvic pain, Denies post void dribbling, Denies , Denies prolapse symptoms, Denies stress incontinence, Denies urge incontinence , Denies urgency, Denies urinary frequency, Denies vaginal discharge, Denies vaginal dryness, Denies vaginal itching, Denies vaginal odor Menstruation: Reports as per HPI, Reports postmenopausal Musculoskeletal: Reports as per HPI, Denies arm numbness/tingling, Denies atrophy, Denies fractures, Denies frequent falls, Denies gait dysfunction, Denies hot joints, Denies leg numbness/tingling, Denies limitation of motion, Denies loss of height, Denies low back pain, Denies morning stiffness, Denies muscle cramps, Denies muscle weakness, Denies myalgias, Denies neck pain, Denies neck stiffness, Denies prior amputations, Denies redness of joints, Denies shooting arm pain, Denies shooting leg pain Musculoskeletal: bilateral: wrist swelling Integumentary: Reports as per HPI, Denies acne, Denies boils, Denies brittle nails, Denies change in hair/nails, Denies color changes, Denies darkening of skin, Denies depigmentation, Denies dryness, Denies foot/leg ulcers, Denies growths, Denies hirsutism, Denies lesions, Denies onychomycosis, Denies pruritus , Denies rash, Denies sores, Denies striae, Denies unusual bruising, Denies wounds Neurological: Reports as per HPI, Denies aphasia, Denies ataxia, Denies balance difficulties, Denies burning pain, Denies change in mentation, Denies change in smell/taste, Denies change in speech, Denies confusion, Denies convulsions, Denies double vision, Denies gait dysfunction, Denies head injury, Denies headaches, Denies hearing difficulties, Denies lack of coordination, Denies loss of vision, Denies memory loss, Denies migraines, Denies motor disturbance, Denies numbness, Denies paralysis, Denies paresthesias, Denies seizures, Denies sensory deficit, Denies spasticity, Denies syncope, Denies tic, Denies tingling , Denies transient paralysis, Denies tremors, Denies vertigo, Denies weakness, Denies visual changes Psychiatric: Reports as per HPI, Denies anhedonia, Denies anxiety, Denies anxiety attacks, Denies change in appetite, Denies change in libido, Denies change in sleep habits, Denies confusion, Denies depression, Denies difficulty concentrating, Denies disorientation, Denies hallucinations, Denies hopelessness , Denies hypersomnia, Denies insomnia, Denies irritability, Denies memory loss, Denies mood swings, Denies paranoia, Denies sadness/tearfulness, Denies sleep disturbances, Denies suicidal ideation Endocrine: Reports as per HPI, Denies cold intolerance, Denies deepening of the voice, Denies excessive sweating, Denies excessive thirst, Denies fatigue, Denies flushing, Denies heat intolerance, Denies high blood sugars, Denies increase in ring/shoe/hat size, Denies low blood sugars, Denies nocturia, Denies palpitations, Denies polydipsia, Denies polyphagia, Denies polyuria, Denies proptosis, Denies recent glucocorticoid use, Denies thyroid mass, Denies weight change Hematologic/Lymphatic: Reports as per HPI Allergic/Immunologic: Reports as per HPI Past Medical History Past Medical History: Cancer (Adenocarcinoma of the lung July 2016 with orthostasis), COPD, GERD/Reflux, Hyperlipidemia, Hypertension, Osteoarthritis ( OA), Thyroid Disorder Additional Past Medical History / Comment(s): Metastatic adenocarcinoma of the lung, stage IV disease, remote history of left breast cancer, COPD, chronic hypoxic respiratory failure maintained on oxygen 2 L/m nasal cannula, hyperlipidemia, GERD, hypothyroidism, left-sided vocal cord paralysis, lichen planus, osteoarthritis History of Any Multi-Drug Resistant Organisms: None Reported Past Surgical History: Breast Surgery, Cholecystectomy, Orthopedic Surgery Additional Past Surgical History / Comment(s): left total knee replacement 2012 , gall bladder 2007, left breat lumpectomy in 1999 with radiation treatments and lymph node removal on left side, EGD and colonoscopy that showed 3 polyps, left supraclavicular lymph node biopsy(pt stated was positive). Past Anesthesia/Blood Transfusion Reactions: No Reported Reaction Additional Past Anesthesia/Blood Transfusion Reaction / Comment(s): blood transfusion when she has her children-no ractions to the blood Past Psychological History: No Psychological Hx Reported Additional Psychological History / Comment(s): PT STATED TAKES XANAX AT NIGHT TO HELP SLEEP. PT LIVES WITH / 1 DOG IN SINGLE LEVEL HOME W/ BASEMENT. 2 STEPS TO GET INTO HOME- BASEMENT HAS 13 STEPS BUT DOES'NT HAVE TO GO DOWN STAIRS-[place] IS ON MAIN LEVEL. NO HOME CARE SERVICES. HAD HOME 02/NEBULIZER. 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 Smoking Status: Former smoker Past Alcohol Use History: None Reported Additional Past Alcohol Use History / Comment(s): started smoking 1960,quit smoking 12 years ago(2004), was smoking 1 ppd. Past Drug Use History: None Reported - Past Family History Mother Family Medical History: Cancer Additional Family Medical History / Comment(s): bowel Father Family Medical History: CVA/TIA Brother(s) Family Medical History: No Reported History Sister(s) Family Medical History: No Reported History Daughter(s) Family Medical History: No Reported History Son(s) Family Medical History: No Reported History Medications and Allergies Home Medications Medication Instructions Recorded Confirmed Type Acetaminophen [Tylenol] 1,000 mg PO Q6H PRN 08/08/16 12/21/16 History Levothyroxine Sodium [Synthroid] 25 mcg PO DAILY 08/08/16 12/21/16 History Omeprazole [PriLOSEC] 20 mg PO AC-BRKFST 08/08/16 12/21/16 History Simvastatin [Zocor] 20 mg PO HS 08/08/16 12/21/16 History Budesonide-Formot 160-4.5 Mcg 2 puff INHALATION RT-BID 09/18/16 12/21/16 History [Symbicort 160-4.5 Mcg Inhaler] ALPRAZolam [Xanax] 0.5 mg PO HS 10/16/16 12/21/16 History Ondansetron [Zofran] 4 mg PO Q4H PRN 10/16/16 12/21/16 History Acetaminophen-Codeine 300-30mg 1 tab PO Q8H PRN 10/28/16 12/21/16 History [Tylenol #3] Docusate Sodium [Dok] 100 mg PO DAILY PRN 10/28/16 12/21/16 History Folic Acid 1 mg PO DAILY 10/28/16 12/21/16 History Magnesium Oxide [Magox 400] 400 mg PO DAILY 10/28/16 12/21/16 History Metoprolol Tartrate [Lopressor] 25 mg PO QAM 10/28/16 12/21/16 History Acetaminophen Tab [Tylenol Tab] 1,000 mg PO HS 11/26/16 12/21/16 History HYDROcodone/APAP 5-325MG [[place] 1 tab PO Q6HR PRN 12/21/16 12/21/16 History 5-325] LORazepam [Ativan] 0.5 mg PO TID PRN 12/21/16 12/21/16 History Levalbuterol HCl [Xopenex] 1.25 mg INHALATION RT-TID 12/21/16 12/21/16 History Mirtazapine [Remeron] 15 mg PO HS 12/21/16 12/21/16 History predniSONE 10 mg PO BID 12/21/16 12/21/16 History Allergies Allergy/AdvReac Type Severity Reaction Status Date / Time Penicillins Allergy Rash/Hives Verified 12/21/16 11:40 albuterol [From DuoNeb] AdvReac Nausea Verified 12/21/16 11:40 ipratropium [From DuoNeb] AdvReac Nausea Verified 12/21/16 11:40 Physical Exam Vitals: Vital Signs Temp Pulse Resp BP BP Pulse Ox 12/21/16 18:00 121 H 138/69 92 L 12/21/16 17:00 121 H 147/74 91 L 12/21/16 16:00 98.9 F 121 H 21 115/77 98 12/21/16 15:00 120 H 20 123/78 93 L 12/21/16 14:00 124 H 19 114/70 91 L 12/21/16 13:52 96.8 F L 21 119/77 12/21/16 13:03 97.7 F 121 H 22 101/70 96 12/21/16 13:00 123 H 21 156/90 95 12/21/16 11:40 121 H 22 101/70 96 12/21/16 11:17 133 H 18 105/68 93 L 12/21/16 10:36 125 H 18 109/73 93 L Intake and Output 12/21/16 12/21/16 12/21/16 06:59 14:59 22:59 Intake Total 125 100 Output Total 60 350 Balance 65 -250 Intake: IV 100 0.9 NS 100 Intake, IV Titration 125 Amount Vancomycin 1,000 mg In 125 Sodium Chloride 0.9% 250 ml @ 125 mls/hr IVPB ONCE ONE Rx#:[id number] Output: Urine 60 350 Other: Voiding Method Bedpan # Voids 1 1 Weight 61.689 kg 61.689 kg Patient Weight 12/22/16 06:59 Weight 61.689 kg - Constitutional General appearance: cooperative, mild distress, thin - EENT Eyes: anicteric sclerae, EOMI, PERRLA, dentition normal, normal appearance ENT: no hard of hearing, no hearing grossly normal, NA/AT, normal oropharynx, no other, no pharyngeal erythema, no thrush, no tonsillar exudates, no tonsillar swelling - Neck Neck: no lymphadenopathy, normal ROM, no other, no rigidity, no stridor, no thyromegaly - Respiratory Respiratory: bilateral: CTA, negative: diminished, dullness, rales, rhonchi - Cardiovascular Rhythm: regular Heart sounds: normal: S1 Abnormal Heart Sounds: no systolic murmur, no diastolic murmur, no rub, no S3 Gallop, no S4 Gallop, no click, no other - Gastrointestinal General gastrointestinal: normal bowel sounds, soft - Integumentary Integumentary: cyanotic, normal - Neurologic Neurologic: CNII-XII intact - Musculoskeletal Musculoskeletal: generalized weakness, strength equal bilaterally - Psychiatric Psychiatric: A&O x's 3, appropriate affect, intact judgment & insight Results CBC & Chem 7: 12/21/16 09:01 12/21/16 09:01 Labs: Abnormal Lab Results - Last 24 Hours (Table) 12/21/16 12/21/16 12/21/16 Range/Units 13:00 13:30 14:36 POC Glucose (mg/dL) 121 H (75-99) mg/dL Total Creatine Kinase 28 L (30-135) U/L Troponin I 0.124 H* (0.000-0.034) ng/mL Urine Appearance Cloudy H (Clear) Urine Ketones Trace H (Negative) Ur Leukocyte Esterase Large H (Negative) Urine WBC 22 H (0-5) /hpf Urine Bacteria Occasional H (None) /hpf Urine Mucus Occasional H (None) /hpf 12/21/16 Range/Units 18:24 POC Glucose (mg/dL) 118 H (75-99) mg/dL Total Creatine Kinase (30-135) U/L Troponin I (0.000-0.034) ng/mL Urine Appearance (Clear) Urine Ketones (Negative) Ur Leukocyte Esterase (Negative) Urine WBC (0-5) /hpf Urine Bacteria (None) /hpf Urine Mucus (None) /hpf Laboratory Results WBC 13.6 k/uL (3.8-10.6) H 12/21/16 09:01 RBC 4.16 m/uL (3.80-5.40) 12/21/16 09:01 Hgb 12.7 gm/dL (11.4-16.0) D 12/21/16 09:01 Hct 39.9 % (34.0-46.0) 12/21/16 09:01 MCV 96.0 fL (80.0-100.0) 12/21/16 09:01 MCH 30.6 pg (25.0-35.0) 12/21/16 09:01 MCHC 31.8 g/dL (31.0-37.0) 12/21/16 09:01 RDW 17.6 % (11.5-15.5) H 12/21/16 09:01 Plt Count 383 k/uL (150-450) D 12/21/16 09:01 Neutrophils % 85 % 12/21/16 09:01 Lymphocytes % 6 % 12/21/16 09:01 Monocytes % 6 % 12/21/16 09:01 Eosinophils % 1 % 12/21/16 09: Basophils % 0 % 12/21/16 09:01 Neutrophils # 11.6 k/uL (1.3-7.7) H 12/21/16 09:01 Lymphocytes # 0.9 k/uL (1.0-4.8) L 12/21/16 09:01 Monocytes # 0.8 k/uL (0-1.0) 12/21/16 09: Eosinophils # 0.1 k/uL (0-0.7) 12/21/16 09:01 Basophils # 0.0 k/uL (0-0.2) 12/21/16 09:01 Hypochromasia Slight 12/21/16 09: Anisocytosis Slight 12/21/16 09:01 Macrocytosis Slight 12/21/16 09: PT 11.4 sec (9.0-12.0) 12/21/16 09: INR 1.1 (<1.1) 12/21/16 09: APTT 22.2 sec (22.0-30.0) 12/21/16 09:01 VBG pH 7.50 (7.31-7.41) H 12/21/16 09:30 VBG pCO2 34 mmHg (37-51) L 12/21/16 09:30 VBG HCO3 26 mmol/L (24-28) 12/21/16 09:30 Sodium 136 mmol/L (137-145) L 12/21/16 09:01 Potassium 4.0 mmol/L (3.5-5.1) 12/21/16 09:01 Chloride 96 mmol/L (98-107) L 12/21/16 09:01 Carbon Dioxide 26 mmol/L (22-30) 12/21/16 09:01 Anion Gap 14 mmol/L 12/21/16 09:01 BUN 21 mg/dL (7-17) H 12/21/16 09:01 Creatinine 0.75 mg/dL (0.52-1.04) 12/21/16 09:01 Est GFR (MDRD) Af Amer >60 (>60 ml/min/1.73 sqM) 12/21/16 09:01 Est GFR (MDRD) Non-Af >60 (>60 ml/min/1.73 sqM) 12/21/16 09:01 Glucose 148 mg/dL (74-99) H 12/21/16 09:01 POC Glucose (mg/dL) 118 mg/dL (75-99) H 12/21/16 18:24 POC Glu Boat Wrapper ID Lindsey Wolff 12/21/16 18:24 Plasma Lactic Acid Juan Alberto 1.8 mmol/L (0.7-2.0) 12/21/16 14:26 Calcium 9.6 mg/dL (8.4-10.2) 12/21/16 09:01 Magnesium 1.8 mg/dL (1.6-2.3) 12/21/16 09:01 Total Bilirubin 0.8 mg/dL (0.2-1.3) 12/21/16 09:01 AST 27 U/L (14-36) 12/21/16 09:01 ALT 25 U/L (9-52) 12/21/16 09:01 Alkaline Phosphatase 113 U/L (38-126) 12/21/16 09:01 Total Creatine Kinase 28 U/L (30-135) L 12/21/16 14:36 CK-MB (CK-2) 1.7 ng/mL (0.0-2.4) 12/21/16 14:36 CK-MB (CK-2) Rel Index 6.1 12/21/16 14:36 Troponin I 0.124 ng/mL (0.000-0.034) H* 12/21/16 14:36 NT-Pro-B Natriuret Pep 420 pg/mL 12/21/16 09:01 Total Protein 6.4 g/dL (6.3-8.2) 12/21/16 09:01 Albumin 3.5 g/dL (3.5-5.0) 12/21/16 09:01 Urine Color Yellow 12/21/16 13:30 Urine Appearance Cloudy (Clear) H 12/21/16 13:30 Urine pH 5.0 (5.0-8.0) 12/21/16 13:30 Ur Specific [place] 1.016 (1.001-1.035) 12/21/16 13:30 Urine Protein Negative (Negative) 12/21/16 13:30 Urine Glucose (UA) Negative (Negative) 12/21/16 13:30 Urine Ketones Trace (Negative) H 12/21/16 13:30 Urine Blood Negative (Negative) 12/21/16 13:30 Urine Nitrite Negative (Negative) 12/21/16 13:30 Urine Bilirubin Negative (Negative) 12/21/16 13:30 Urine Urobilinogen <2.0 mg/dL (<2.0) 12/21/16 13:30 Ur Leukocyte Esterase Large (Negative) H 12/21/16 13:30 Urine WBC 22 /hpf (0-5) H 12/21/16 13:30 Ur Squamous Epith Cells 2 /hpf (0-4) 12/21/16 13:30 Urine Bacteria Occasional /hpf (None) H 12/21/16 13:30 Urine Mucus Occasional /hpf (None) H 12/21/16 13:30 Influenza Type A RNA Not Detected (Not Detectd) 12/21/16 09:19 Influenza Type B (PCR) Not Detected (Not Detectd) 12/21/16 09:19 Thrombosis Risk Factor Assmnt - Choose All That Apply Any of the Below Risk Factors Present?: Yes Each Factor Represents 1 point: Abnormal pulmonary function (COPD), Medical pt on bed rest Other Risk Factors: Yes Each Risk Factor Represents 2 Points: Age 61-74 years, Patient confined to bed Other congenital or acquired thrombophilia - If yes, enter type in comment: No Thrombosis Risk Factor Assessment Total Risk Factor Score: 6 Thrombosis Risk Factor Assessment Level: High Risk Assessment and Plan Plan: 1. Severe respiratory distress Acute pulmonary edema presenting with acute respiratory hypoxemic on chronic hypoxemic respiratory failure, underlying COPD exacerbation and metastatic lung carcinoma patient will be diuresed at 40 mg IV every 24 hours she is running low on her blood pressure currently, she is in ICU requiring CPAP treatments, consults were made with cardiology and Dr. Remy pulmonary. Echocardiogram is requested 2. Advanced stage IV adenocarcinoma of the lung with primary lesion noted in June 2016 completing 10 regurgitation treatments, last chemotherapy 2016 for which it cannot be completed secondary to poor performance, oncology is consulted she required at that time carboplatin and Alimta on her fourth cycle. She is not wanting to pursue additional chemotherapy however is interested in immunomodulating treatments for lung cancer. Consults with oncology Dr. Enciso 3. Pulmonary cachexia and severe protein calorie malnutrition, Remeron would be reinitiated, she has progressive weight loss and anorexia, protein supplementation and caloric supplementation 3 times a day ensure 4. COPD exacerbation, patient will be started on IV steroids, nebulized albuterol and Atrovent, 5. pneumonitis however significant tumor burden noted bilaterally, postobstructive pneumonia cannot be ruled out, patient is on IV Levaquin 6. Pre-renal azotemia. Start IV fluid resuscitation the form of normal saline at 100 mL an hour, monitor CMP magnesium tomorrow morning. 7. Hypertension and hypertensive cardiovascular disehome medodipine 5 mg orally once every day.which would be on hold until blood pressure stabilizes 8. Hyperlipidemia. Continue simvastatin 20 mg orally bedtime. which would be on hold secondary to cachexia and fyutile efficacy secondary to advanced lung carcinoma 9. Hypothyroidism. Continue Synthroid 25 g orally once every day. 10. Vitamin D deficiency. Continue vitamin D3 1000 international units once every day. 11. History of breast cancer status post left lumpectomy with radiation and 5 year hormonal therapy. 12. Hoarseness secondary to vocal cord paralysis. Stable at this time 13 Pulmonary anxiety on chronic benzodiazepine use 14. Elevated troponin unknown significance at this time 15. 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 VTEprophylaxis. Heparin 5000 units subcutaneously every 12 hours, bilateral knee-high MACY hose. 16. GI prophylaxis. Continue Protonix 40 mg IV push every 24 hours. 17. Advanced Care Planning discussed in detail, patient does not want CPR no ventilatory support, she wants pursue aggressive treatments, no chemotherapy, feeding tube has not been fully decided and was not discussed in detail at this time. They're not quite ready yet for hospice until discussion with Dr. Enciso for immunomodulating treatments for lung cancer which family decided Time with Patient: Greater than 30
[2016-12-21] MEDS: ACETAMINOPHEN TAB 500 MG TAB PO SCH (22:09)
[2016-12-21] MEDS: MIRTAZAPINE 15 MG TAB PO SCH (22:09)
[2016-12-21] MEDS: ALPRAZolam 0.5 MG TAB PO SCH (22:13)
[2016-12-21] MEDS: POTASSIUM CHLORIDE ER 10 MEQ TAB.ER.PRT PO SCH (22:13)
[2016-12-21] MEDS: CHLORPHEN-HYDROcod 8-10mg/5ml 5 ML ORAL.SYRG PO SCH (22:13)
[2016-12-21 22:14] LABS: Creatine Kinase MB 2.1 ng/mL (0.0-2.4)
[2016-12-21 22:21] LABS: Troponin I 0.108 ng/mL (0.000-0.034)
[2016-12-22] MEDS: HEPARIN SODIUM,PORCINE 5,000 UNIT/ML 1 ML VIAL SQ SCH ×4 (00:21→23:03)
[2016-12-22] MEDS: methylPREDNISolone SOD SUCCI 125 MG/2 ML VIAL IV SCH ×5 (00:21→23:23)
[2016-12-22 00:22] LABS: Glucose,Whole Blood 117 mg/dL (75-99)
[2016-12-22 05:03] LABS: Anisocytosis Slight; Basophils % (A) 0 %; CH 30.2; CHCM 32.3; Eosinophils # (A) 0.1 k/uL (0-0.7); Eosinophils % (A) 1 %; HCT 34.7 % (34.0-46.0); HDW 2.83; HGB 11.6 gm/dL (11.4-16.0); Luc # (Auto) 0.03; Luc % (Auto) 0; Lymphocytes # (A) 0.3 k/uL (1.0-4.8); Lymphocytes % (A) 3 %; MCH 31.6 pg (25.0-35.0); MCHC 33.5 g/dL (31.0-37.0); MCV 94.1 fL (80.0-100.0); Mean Platelet Volume 7.1; Monocytes # (A) 0.1 k/uL (0-1.0); Monocytes % (A) 2 %; Neutrophils # (A) 8.1 k/uL (1.3-7.7); Neutrophils % (A) 94 %; RBC 3.69 m/uL (3.80-5.40); RDW 17.5 % (11.5-15.5); WBC 8.6 k/uL (3.8-10.6); WBC (Perox) 9.16
[2016-12-22] MEDS: INSULIN LISPRO (humaLOG) 300 UNIT/3 ML VIAL SQ SCH ×5 (05:22→23:23)
[2016-12-22] MEDS: LEVOTHYROXINE 25 MCG TAB PO SCH (06:09)
[2016-12-22 06:21] LABS: Glucose,Whole Blood 106 mg/dL (75-99)
[2016-12-22 07:17] LABS: ALT 27 U/L (9-52); AST 26 U/L (14-36); Alkaline Phosphatase 101 U/L (38-126); Anion Gap 19 mmol/L; Blood Urea Nitrogen 34 mg/dL (7-17); Calcium 9.9 mg/dL (8.4-10.2); Carbon Dioxide 22 mmol/L (22-30); Chloride 105 mmol/L (98-107); Cholesterol 194 mg/dL (<200); Glucose 116 mg/dL (74-99); HDL Cholesterol 97 mg/dL (40-60); Magnesium 2.1 mg/dL (1.6-2.3); Non-African American GFR(MDRD) >60 (>60 ml/min/1.73 sqM); Phosphorous 5.3 mg/dL (2.5-4.5); Sodium 146 mmol/L (137-145); Total Bilirubin 0.6 mg/dL (0.2-1.3); Total Protein 6.4 g/dL (6.3-8.2); Triglycerides 213 mg/dL (<150)
[2016-12-22] MEDS: LEVALBUTEROL NEB 1.25 MG/3 ML AMP INHALATION SCH ×3 (08:01→21:00)
[2016-12-22] MEDS: FORMOTEROL FUMARATE 20 MCG/2 ML NEBU INHALATION SCH ×2 (08:02→21:00)
[2016-12-22] MEDS: PANTOPRAZOLE 40 MG TABLET PO SCH (08:41)
[2016-12-22] MEDS: FUROSEMIDE 10 MG/ML 4 ML VIAL IV SCH (08:42)
[2016-12-22] MEDS: POTASSIUM CHLORIDE ER 10 MEQ TAB.ER.PRT PO SCH ×2 (08:44→22:03)
[2016-12-22] MEDS ORDERED: LEVOFLOXACIN 750MG-D5W PMX 750 MG in DEXTROSE/WATER 1 150ML.BAG IVPB SCH (09:00)
[2016-12-22] MEDS ORDERED: METOPROLOL TARTRATE 25 MG TAB PO SCH (09:00)
--- NOTE | 2016-12-22 09:12 | XR ---
EXAMINATION TYPE: XR chest 1V portable DATE OF EXAM: 12/22/2016 6:45 AM COMPARISON: 12/21/2016 INDICATION: Short of breath TECHNIQUE: Single frontal view of the chest is obtained. FINDINGS: The heart size is normal. The pulmonary vasculature is normal. There are patchy infiltrates through the right lung. A left lower lobe infiltrate is present. Finding s are similar to prior study. Small left pleural effusion is present. IMPRESSION: 1. Stable patchy bilateral infiltrates at the left base and to the right lung.
--- NOTE | 2016-12-22 10:10 | ECHOF ---
Referral Reason:dyspnea pulmonary edeam, lung ca MEASUREMENTS -------- HEIGHT: 157.5 cm WEIGHT: 60.3 kg BP: 118/66 IVSd: 1.3 cm (0.6 - 1.1) LVIDd: 2.7 cm (3.9 - 5.3) LVPWd: 1.3 cm (0.6 - 1.1) IVSs: 1.9 cm LVIDs: 1.7 cm LVPWs: 1.4 cm Ao Diam: 2.9 cm (2.0 - 3.7) AV Cusp: 1.9 cm (1.5 - 2.6) LA Diam: 2.0 cm (2.7 - 3.8) MV EXCURSION: 12.148 mm (> 18.000) MV EF SLOPE: 74 mm/s (70 - 150) EPSS: 0.8 cm MV E Jayant: 0.52 m/s MV DecT: 179 ms MV A Jayant: 0.99 m/s MV E/A Ratio: 0.53 AR PHT: 350 ms RAP: 5.00 mmHg RVSP: 22.54 mmHg FINDINGS -------- Resting tachycardia (HR>100bpm). This was a technically good study. There is mild concentric left ventricular hypertrophy. Overall left ventricular systolic function is normal with, an EF between 55 - 60 %. The diastolic filling pattern is normal for the age of the patient 15.57. The right ventricle is normal in size and function. The left atrium is normal in size. The right atrium is normal in size. Aortic valve is trileaflet and is mildly thickened. Trace amount of aortic regurgitation. The mitral valve leaflets are mildly thickened. Mild mitral annular calcification present. Mild mitral regurgitation is present. Trace tricuspid regurgitation present. The right ventricular systolic pressure, as measured by Doppler, is 22.54mmHg. Pulmonic valve appears structurally normal. The aortic root size is normal. There is a small, generalized pericardial effusion present. CONCLUSIONS -------- 1. Resting tachycardia (HR>100bpm). 2. Trace amount of aortic regurgitation. 3. The mitral valve leaflets are mildly thickened. 4. Mild mitral annular calcification present. 5. Mild mitral regurgitation is present. 6. Trace tricuspid regurgitation present. 7. The right ventricular systolic pressure, as measured by Doppler, is 22.54mmHg. 8. Pulmonic valve appears structurally normal. 9. The aortic root size is normal. 10. There is a small, generalized pericardial effusion present. 11. This was a technically good study. 12. There is mild concentric left ventricular hypertrophy. 13. Overall left ventricular systolic function is normal with, an EF between 55 - 60 %. 14. The diastolic filling pattern is normal for the age of the patient 15.57 15. The right ventricle is normal in size and function. 16. The left atrium is normal in size. 17. The right atrium is normal in size. 18. Aortic valve is trileaflet and is mildly thickened. EQUITIES TRADER: Yanely Arroyo RDCS
[2016-12-22] MEDS: ASPIRIN 81 MG CHEW PO SCH (10:36)
[2016-12-22] MEDS: CHLORPHEN-HYDROcod 8-10mg/5ml 5 ML ORAL.SYRG PO SCH ×2 (10:36→23:02)
[2016-12-22] MEDS ORDERED: MORPHINE SULFATE 2 MG/ML SYRINGE IVP PRN (10:46)
--- NOTE | 2016-12-22 10:51 | P.PN ---
Subjective This is a 71-year-old female patient of Dr. Kiana Davis has a recent diagnosis of a lung mass which is considered to be of a primary lung. Her history dates back to around a few months back when she started having symptoms of increased cough and shortness of breath and she was given several rounds of antibiotics and ultimately she had a CAT scan of the chest on April 2016 which showed a mass like consolidation in the lingula in addition to left hilar, subcarinal, right hilar and an left supraclavicular lymphadenopathy. Based on this, the patient was sent on July 2016 for a fine-needle aspirate of the supraclavicular lymph node and a diagnosis was consistent with adenocarcinoma and the pathologist favored a GI origin rather than lungs. A PET scan was also completed which also confirmed the findings with her was a left upper lobe mass extending to the left hilar and supraclavicular area with intense uptake consistent with primary lung carcinoma. Based on the path report, the patient was referred to [facility] for a second opinion. The patient was able to see Dr. Casie Montero and she is seeing Dr. Davis locally. In addition, the mediastinal mass is causing mass effect on the mid esophagus causing proximal esophageal dilatation. Apparently the patient was discharged and has been following with Dr. Davis and she has been getting chemotherapy, her last chemotherapy in the form of carboplatin and Alimta Patient did receive 10 courses of radiation therapy prior to her chemotherapy.. She has 1 more course of chemotherapy however this is abandoned secondary to poor performance based on her last admission from our facility 11/30/2016. sHe was admitted at that time secondary to COPD exacerbation,cachexia, malnutrition, metastatic lung cancer stage IV adenocarcinoma. 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 from her last admission no new medications she was discharged with tapering prednisone and oral antibiotic then She was discharged to home, she was using her O2 at 3 L nasal cannula from a previous of 2 L a cannula as the patient has increasing difficulty, nebulized treatments 3 times a day is not very helpful, she has increased shortness of breath bilateral pleuritic rib cage pain, weight loss, diminished appetite, no fever no aspiration, patient denies any lower extremity edema or calf pain, she has pleurisy mainly bilateral lower rib cage pain patient has no nausea no vomiting he was evaluated by the EMS she required CPAP treatments and routed to the emergency room Patient was evaluated in emergency room she required BiPAP treatments at that time secondary to hypoxemia and increasing respiratory distress, she was subsequently admitted. Chest x-ray shows pulmonary edema, during my examination on her in the emergency room, she requires BiPAP treatments however she is much more comfortable after diuresing with IV Lasix. Computed tomography scan of the chest failed to reveal any pulmonary emboli however there is significant tumor burden noted on her CT which seems to be worsening compared to her previous CT in November,, bilateral pleural effusion noted with nodules superimposed pneumonitis She was subsequently transferred to ICU her CODE STATUS is DO NOT RESUSCITATE no ventilatory support where she would be seen in consultation by Dr. Remy and Dr. Davis and Dr. KIMBERLI Cerna. 12/22: Triglycerides 213, cholesterol 194, LDL 54, HDL 97. Repeat chest x-ray shows stable patchy bilateral infiltrates at the left base and to the right lung. A new bilateral rib pain for which morphine IV has been ordered. Patient has been cleared by Dr. Yap for transfer to [facility]. Family is anxious to speak with oncology regarding new medication for stage IV lung cancer. She is continued on Solu-Medrol 60 mg every 6 hours and Lasix is a 40 mg IV every day. Echocardiogram reveals mild mitral regurgitation, trace tricuspid regurgitation, small generalized pericardial effusion, mild left ventricular hypertrophy with EF of 55-60%. Objective - Vital Signs Vital signs: Vital Signs Temp 98.1 F 12/22/16 09:00 Pulse 105 H 12/22/16 09:00 Resp 20 12/22/16 09:00 BP 150/73 12/22/16 09:00 Pulse Ox 93 L 12/22/16 09:00 Intake & Output 12/21/16 12/22/16 12/22/16 18:59 06:59 18:59 Intake Total 225 220 140 Output Total 410 795 85 Balance -185 -575 55 Weight 61.689 kg 60.4 kg Intake: IV 100 220 40 0.9 NS 100 220 40 Intake, IV Titration 125 100 Amount Levofloxacin 500Mg-D5w 100 Pmx 500 mg In Dextrose/ Water 1 100ml.bag @ 100 mls/hr IVPB ONCE STA Rx#: [id number] Vancomycin 1,000 mg In 125 Sodium Chloride 0.9% 250 ml @ 125 mls/hr IVPB ONCE ONE Rx#:[id number] Output: Urine 410 795 85 Other: Voiding Method Bedpan Indwelling Catheter # Voids 1 - Exam General appearance: cooperative, mild distress, thin - EENT Eyes: anicteric sclerae, EOMI, PERRLA, dentition normal, normal appearance ENT: no hard of hearing, no hearing grossly normal, NA/AT, normal oropharynx, no other, no pharyngeal erythema, no thrush, no tonsillar exudates, no tonsillar swelling - Neck Neck: no lymphadenopathy, normal ROM, no other, no rigidity, no stridor, no thyromegaly - Respiratory Respiratory: bilateral: CTA, negative: diminished, dullness, rales, rhonchi - Cardiovascular Rhythm: regular Heart sounds: normal: S1 Abnormal Heart Sounds: no systolic murmur, no diastolic murmur, no rub, no S3 Gallop, no S4 Gallop, no click, no other - Gastrointestinal General gastrointestinal: normal bowel sounds, soft - Integumentary Integumentary: cyanotic, normal - Neurologic Neurologic: CNII-XII intact - Musculoskeletal Musculoskeletal: generalized weakness, strength equal bilaterally - Psychiatric Psychiatric: A&O x's 3, appropriate affect, intact judgment & insight - Labs CBC & Chem 7: 12/22/16 04:40 12/22/16 04:40 Labs: Abnormal Lab Results - Last 24 Hours (Table) 12/21/16 12/21/16 12/21/16 Range/Units 13:00 13:30 14:36 RBC (3.80-5.40) m/uL RDW (11.5-15.5) % Neutrophils # (1.3-7.7) k/uL Lymphocytes # (1.0-4.8) k/uL Sodium (137-145) mmol/L BUN (7-17) mg/dL Glucose (74-99) mg/dL POC Glucose (mg/dL) 121 H (75-99) mg/dL Phosphorus (2.5-4.5) mg/dL Total Creatine Kinase 28 L (30-135) U/L Troponin I 0.124 H* (0.000-0.034) ng/mL Triglycerides (<150) mg/dL HDL Cholesterol (40-60) mg/dL Urine Appearance Cloudy H (Clear) Urine Ketones Trace H (Negative) Ur Leukocyte Esterase Large H (Negative) Urine WBC 22 H (0-5) /hpf Urine Bacteria Occasional H (None) /hpf Urine Mucus Occasional H (None) /hpf 12/21/16 12/21/16 12/22/16 Range/Units 18:24 21:29 00:20 RBC (3.80-5.40) m/uL RDW (11.5-15.5) % Neutrophils # (1.3-7.7) k/uL Lymphocytes # (1.0-4.8) k/uL Sodium (137-145) mmol/L BUN (7-17) mg/dL Glucose (74-99) mg/dL POC Glucose (mg/dL) 118 H 117 H (75-99) mg/dL Phosphorus (2.5-4.5) mg/dL Total Creatine Kinase (30-135) U/L Troponin I 0.108 H* (0.000-0.034) ng/mL Triglycerides (<150) mg/dL HDL Cholesterol (40-60) mg/dL Urine Appearance (Clear) Urine Ketones (Negative) Ur Leukocyte Esterase (Negative) Urine WBC (0-5) /hpf Urine Bacteria (None) /hpf Urine Mucus (None) /hpf 12/22/16 12/22/16 12/22/16 Range/Units 04:40 04:40 06:19 RBC 3.69 L (3.80-5.40) m/uL RDW 17.5 H (11.5-15.5) % Neutrophils # 8.1 H (1.3-7.7) k/uL Lymphocytes # 0.3 L (1.0-4.8) k/uL Sodium 146 H (137-145) mmol/L BUN 34 H (7-17) mg/dL Glucose 116 H (74-99) mg/dL POC Glucose (mg/dL) 106 H (75-99) mg/dL Phosphorus 5.3 H (2.5-4.5) mg/dL Total Creatine Kinase (30-135) U/L Troponin I (0.000-0.034) ng/mL Triglycerides 213 H (<150) mg/dL HDL Cholesterol 97 H (40-60) mg/dL Urine Appearance (Clear) Urine Ketones (Negative) Ur Leukocyte Esterase (Negative) Urine WBC (0-5) /hpf Urine Bacteria (None) /hpf Urine Mucus (None) /hpf Microbiology - Last 24 Hours (Table) 12/21/16 13:30 Urine Culture - Preliminary Urine,Voided Assessment and Plan Plan: 1. Severe respiratory distress Acute pulmonary edema presenting with acute respiratory hypoxemic on chronic hypoxemic respiratory failure, underlying COPD exacerbation and metastatic lung carcinoma patient will be diuresed at 40 mg IV every 24 hours she is running low on her blood pressure currently, she is in ICU requiring CPAP treatments, consults were made with cardiology and Dr. Remy pulmonary. Echocardiogram as above 2. Advanced stage IV adenocarcinoma of the lung with primary lesion noted in June 2016 completing 10 regurgitation treatments, last chemotherapy 2016 for which it cannot be completed secondary to poor performance, oncology is consulted she required at that time carboplatin and Alimta on her fourth cycle. She is not wanting to pursue additional chemotherapy however is interested in immunomodulating treatments for lung cancer. Consults with oncology Dr. Enciso 3. Pulmonary cachexia and severe protein calorie malnutrition, Remeron would be reinitiated, she has progressive weight loss and anorexia, protein supplementation and caloric supplementation 3 times a day ensure 4. COPD exacerbation, patient will be started on IV steroids, nebulized albuterol and Atrovent, 5. pneumonitis however significant tumor burden noted bilaterally, postobstructive pneumonia cannot be ruled out, patient is on IV Levaquin 6. Pre-renal azotemia. Start IV fluid resuscitation the form of normal saline at 100 mL an hour, monitor CMP magnesium tomorrow morning. 7. Hypertension and hypertensive cardiovascular disehome medodipine 5 mg orally once every day.which would be on hold until blood pressure stabilizes 8. Hyperlipidemia. Continue simvastatin 20 mg orally bedtime. which would be on hold secondary to cachexia and fyutile efficacy secondary to advanced lung carcinoma 9. Hypothyroidism. Continue Synthroid 25 g orally once every day. 10. Vitamin D deficiency. Continue vitamin D3 1000 international units once every day. 11. History of breast cancer status post left lumpectomy with radiation and 5 year hormonal therapy. 12. Hoarseness secondary to vocal cord paralysis. Stable at this time 13 Pulmonary anxiety on chronic benzodiazepine use 14. Elevated troponin unknown significance at this time 15. 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 VTEprophylaxis. Heparin 5000 units subcutaneously every 12 hours, bilateral knee-high MACY hose. 16. GI prophylaxis. Continue Protonix 40 mg IV push every 24 hours. 17. Advanced Care Planning discussed in detail, patient does not want CPR no ventilatory support, she wants pursue aggressive treatments, no chemotherapy, feeding tube has not been fully decided and was not discussed in detail at this time. They're not quite ready yet for hospice until discussion with Dr. Enciso for immunomodulating treatments for lung cancer which family decided Impression and plan of care have been directed as dictated by the signing physician. Ashlyn Jay nurse practitioner acting as scribe for signing physician. Time with Patient: Greater than 30
[2016-12-22 12:20] LABS: Glucose,Whole Blood 132 mg/dL (75-99)
[2016-12-22] MEDS: MAGNESIUM OXIDE 400 MG TAB PO SCH (12:29)
[2016-12-22] MEDS: FOLIC ACID 1 MG TAB PO SCH (12:39)
--- NOTE | 2016-12-22 14:26 | P.PN ---
Subjective Principal diagnosis: Acute on chronic respiratory failure secondary to COPD and stage IV adenocarcinoma of the lungs 71-year-old female patient with known history of metastatic adenocarcinoma of the lung, stage IV disease treated with systemic chemotherapy with a combination of carboplatinum and Alimta. The patient had completed a total of 3 cycles of systemic chemotherapy and radiation therapy to her chest. The patient initially came to presented with a left supraclavicular lymphadenopathy and a left upper lobe mass with extensive mediastinal lymphadenopathy for which the patient underwent a biopsy of the supraclavicular lymph node and the patient was diagnosed having an adenocarcinoma of the lung. The patient was also found to have a left vocal cord paralysis related to the thoracic tumor. The patient has COPD and chronic hypoxic respiratory failure. The patient was started on systemic chemotherapy. Her latest hospitalization was in November 2016 where the patient presented with dry heaves and nausea vomiting and dehydration and electrodes imbalance post systemic chemotherapy. The patient was stabilized and she was discharged home. Since then the patient has not received any further systemic chemotherapy. The patient completed her last session of systemic chemotherapy approximately a month ago. She is under the care of Dr. Davis and she is being considered for immunotherapy. The patient came into the hospital because of worsening shortness of breath. This started this morning as the patient woke up with increased difficulty breathing. She typically uses 3 L of oxygen at home and she was reported to be hypoxic with a pulse ox of 84% of these of oxygen nasal cannula up on EMS arrival to her house. The patient was placed on a 100% percent nonrebreather. She was brought to the emergency which she was given DuoNeb nebulized treatments and IV Solu-Medrol and she was placed on BiPAP treatment. Lactic acid level was elevated at 2.8 and subsequently dropped down to 1.8. First set of troponins of 0.127. White cell count is not elevated at 13.6. Rest of the electrodes are all within normal limits. The BNP level is at 420. I discussed the case with the emergency department doctor and I asked him to proceed with a computed tomography scan of the chest which Completed. I reviewed the CAT scan of the chest and neck compared to the earlier CAT scan that was done in November 2016. There is worsening and another metastatic lesions throughout the lung fischer bilaterally more so on the right. The pleural fluids are essentially stable in the lung bases probably likely worse on the left. There is no evidence of pulmonary embolism. The patient is currently on 3 L and she is off the BiPAP. Reevaluated today on 12/22/2016, patient is overall about the same, maybe at that better compared to yesterday. Remains on bronchodilators, remains on oxygen, I reviewed the CT of the chest with the patient, and clearly shows diffuse metastatic disease patient is very well aware of the poor prognostic picture. Awaiting recommendation from oncology regarding future treatment plan. All labs were reviewed and they seem to be relatively unremarkable. Objective - Vital Signs Vital signs: Vital Signs Temp 98.1 F 12/22/16 09:00 Pulse 114 H 12/22/16 12:10 Resp 18 12/22/16 11:00 BP 119/68 12/22/16 11:00 Pulse Ox 94 L 12/22/16 11:00 Intake & Output 12/21/16 12/22/16 12/22/16 18:59 06:59 18:59 Intake Total 225 220 180 Output Total 410 795 570 Balance -185 -575 -390 Weight 61.689 kg 60.4 kg 60.4 kg Intake: IV 100 220 80 0.9 NS 100 220 80 Intake, IV Titration 125 100 Amount Levofloxacin 500Mg-D5w 100 Pmx 500 mg In Dextrose/ Water 1 100ml.bag @ 100 mls/hr IVPB ONCE STA Rx#: [id number] Vancomycin 1,000 mg In 125 Sodium Chloride 0.9% 250 ml @ 125 mls/hr IVPB ONCE ONE Rx#:[id number] Output: Urine 410 795 570 Other: Voiding Method Bedpan Indwelling Catheter Indwelling Catheter # Voids 1 1 - Exam Head exam was generally normal. There was no scleral icterus or corneal arcus. Mucous membranes were moist.Neck was supple and without jugular venous distension, thyromegaly, or carotid bruits. Carotids were easily palpable bilaterally. There was no adenopathy. Lung sounds are diminished bilaterally and there is few rales over the lung bases. There are diminished breath sounds and there is prolongation of the expiratory phase of breathing and scattered expiratory wheezes heard throughout the lung fischer bilaterally.Cardiac exam revealed the PMI to be normally situated and sized. The rhythm was regular and no extrasystoles were noted during several minutes of auscultation. The first and second heart sounds were normal and physiologic splitting of the second heart sound was noted. There were no murmurs, rubs, clicks, or gallops.Abdominal exam revealed normal bowel sounds. The abdomen was soft, non- tender, and without masses, organomegaly, or appreciable enlargement of the abdominal aorta.Examination of the extremities revealed easily palpable radial, femoral and pedal pulses. There was no cyanosis, clubbing or edema. - Labs CBC & Chem 7: 12/22/16 04:40 12/22/16 04:40 Labs: Abnormal Lab Results - Last 24 Hours (Table) 12/21/16 12/21/16 12/21/16 Range/Units 13:30 14:36 18:24 RBC (3.80-5.40) m/uL RDW (11.5-15.5) % Neutrophils # (1.3-7.7) k/uL Lymphocytes # (1.0-4.8) k/uL Sodium (137-145) mmol/L BUN (7-17) mg/dL Glucose (74-99) mg/dL POC Glucose (mg/dL) 118 H (75-99) mg/dL Phosphorus (2.5-4.5) mg/dL Total Creatine Kinase 28 L (30-135) U/L Troponin I 0.124 H* (0.000-0.034) ng/mL Triglycerides (<150) mg/dL HDL Cholesterol (40-60) mg/dL Urine Appearance Cloudy H (Clear) Urine Ketones Trace H (Negative) Ur Leukocyte Esterase Large H (Negative) Urine WBC 22 H (0-5) /hpf Urine Bacteria Occasional H (None) /hpf Urine Mucus Occasional H (None) /hpf 12/21/16 12/22/16 12/22/16 Range/Units 21:29 00:20 04:40 RBC (3.80-5.40) m/uL RDW (11.5-15.5) % Neutrophils # (1.3-7.7) k/uL Lymphocytes # (1.0-4.8) k/uL Sodium 146 H (137-145) mmol/L BUN 34 H (7-17) mg/dL Glucose 116 H (74-99) mg/dL POC Glucose (mg/dL) 117 H (75-99) mg/dL Phosphorus 5.3 H (2.5-4.5) mg/dL Total Creatine Kinase (30-135) U/L Troponin I 0.108 H* (0.000-0.034) ng/mL Triglycerides 213 H (<150) mg/dL HDL Cholesterol 97 H (40-60) mg/dL Urine Appearance (Clear) Urine Ketones (Negative) Ur Leukocyte Esterase (Negative) Urine WBC (0-5) /hpf Urine Bacteria (None) /hpf Urine Mucus (None) /hpf 12/22/16 12/22/16 12/22/16 Range/Units 04:40 06:19 12:18 RBC 3.69 L (3.80-5.40) m/uL RDW 17.5 H (11.5-15.5) % Neutrophils # 8.1 H (1.3-7.7) k/uL Lymphocytes # 0.3 L (1.0-4.8) k/uL Sodium (137-145) mmol/L BUN (7-17) mg/dL Glucose (74-99) mg/dL POC Glucose (mg/dL) 106 H 132 H (75-99) mg/dL Phosphorus (2.5-4.5) mg/dL Total Creatine Kinase (30-135) U/L Troponin I (0.000-0.034) ng/mL Triglycerides (<150) mg/dL HDL Cholesterol (40-60) mg/dL Urine Appearance (Clear) Urine Ketones (Negative) Ur Leukocyte Esterase (Negative) Urine WBC (0-5) /hpf Urine Bacteria (None) /hpf Urine Mucus (None) /hpf Microbiology - Last 24 Hours (Table) 12/21/16 13:30 Urine Culture - Preliminary Urine,Voided Assessment and Plan Plan: 1 metastatic stage IV adenocarcinoma of the lung, post systemic chemotherapy with 3 cycles of carboplatinum and Alimta and palliative radiation therapy. 2 acute on top of chronic respiratory failure with worsening hypoxemia. CAT scan of the chest was noted and there is no evidence of pulmonary embolism yet that is progression of the nodular metastatic lesions bilaterally more so on the right. In addition, the patient has noted increase in size of the lymphadenopathy in the axillary in the supraclavicular area. This is in agreement with her disease progression. Acute decompensation is also related to her COPD exacerbation. Patient will be treated 3 chronic bilateral pleural effusions, likely malignant 4 advanced COPD with chronic hypoxic respiratory failure maintained on 3 L of oxygen by nasal cannula on outpatient basis 5 left vocal cord paralysis with secondary hoarseness 6 breast cancer history of 7 hyperlipidemia 8 hypertension 9 GE reflux 10 generalized weakness with diminished oral intake and poor baseline performance and functional status. Recommendation: Continue present treatment plan, await further input from oncology regarding treatment plan, I think at this point may not be unreasonable to even consider discussing comfort care measures, however I would leave it up to the oncologist on the case to address that issue. In the meantime continue present supportive care measures. Time with Patient: Less than 30
[2016-12-22] MEDS: METOPROLOL TARTRATE 25 MG TAB PO SCH ×2 (15:26→23:02)
--- NOTE | 2016-12-22 17:31 | CONS ---
DATE OF CONSULTATION: This is a 71-year-old lady with a diagnosis of lung cancer, status post radiation and chemotherapy. She does not have any documented history of CAD, diabetes, or hypertension. She does have hyperlipidemia and has been on a beta deanna at home. She came in with progressively worsening shortness of breath to the emergency room and she has a past history of smoking and chronic obstructive pulmonary disease and uses home oxygen. After she arrived in the emergency room, she was placed on a BiPAP and with the BiPAP, she seemed to have improved and this morning, she actually feels better. I was asked to see her because of elevated troponin level. At the time of my evaluation, she is comfortable, denies chest pain. Her shortness of breath has improved. She is tachycardic. She has received radiation therapy as well as chemotherapy and sees Dr. Remy in the outpatient setting. PAST MEDICAL HISTORY: 1. Lung cancer status post radiation and chemotherapy. 2. Hyperlipidemia. 3. Hypertension. 4. Osteoarthritis. 5. Hypothyroidism. 6. No evidence of any documented CAD. Status post breast surgery, cholecystectomy, orthopedic surgery, totally knee arthroplasty and lumpectomy with radiation for breast cancer in 1999. Medications at home include: 1. Magnesium supplements. 2. Lopressor 25 mg daily. 3. Folic acid. 4. Simvastatin 20 mg daily. 5. Synthroid 25 mcg daily. 6. She also takes omeprazole. 7. Symbicort inhaler. ALLERGIES: PENICILLIN. LABORATORY DATA: Suggests three abnormal troponin levels of 0.12, 0.12 and 0.10. Her renal function is normal. Her thyroid functions are also within normal limits. On examination, blood pressure is 118/70, pulse rate is about 108 per minute. HEENT: Unremarkable. Fundus was not examined by me. Neck is supple. There is no JVD. I do not hear a carotid bruit. Heart exam reveals S1, S2 and the heart sounds are camouflaged by the lung noise. I cannot appreciate murmurs. Lungs reveal bilateral scattered rhonchi. ABDOMEN: Soft, nontender. Lower extremities reveal diminished pulses. CENTRAL NERVOUS SYSTEM: Grossly no focal deficits. EKG revealed sinus tachycardia, nonspecific ST-T changes. IMPRESSION: 1. Elevated troponin probably represents a type II myocardial infarction with some oxygenation issues related to her underlying respiratory situation. This does not represent a primary obstructive coronary artery disease. The patient is comfortable. No intervention is necessary at this point. 2. Lung cancer status post radiation and chemotherapy. 3. Hypercholesterolemia. 4. Past history of smoking and chronic obstructive pulmonary disease. RECOMMENDATIONS: I am recommending that we will perform an echo or I will review the echo if it has been performed already. I will increase the beta deanna to 25 mg t.i.d. and add aspirin 81 mg daily to her regimen. Her CT angiography was negative for pulmonary embolism. No aggressive intervention is advised. I discussed my thoughts in detail with the patient. Thank you very much for the consult.
[2016-12-22 17:44] LABS: Glucose,Whole Blood 182 mg/dL (75-99)
[2016-12-22 21:15] LABS: Glucose,Whole Blood 112 mg/dL (75-99)
[2016-12-22] MEDS: ALPRAZolam 0.5 MG TAB PO SCH (22:03)
[2016-12-22] MEDS: MIRTAZAPINE 15 MG TAB PO SCH (22:04)
[2016-12-22] MEDS: ACETAMINOPHEN TAB 500 MG TAB PO SCH (22:04)
[2016-12-22 23:23] LABS: Glucose,Whole Blood 132 mg/dL (75-99)
[2016-12-23 06:14] LABS: Glucose,Whole Blood 121 mg/dL (75-99)
[2016-12-23] MEDS: INSULIN LISPRO (humaLOG) 300 UNIT/3 ML VIAL SQ SCH ×4 (06:32→21:55)
[2016-12-23] MEDS: PANTOPRAZOLE 40 MG TABLET PO SCH (06:33)
[2016-12-23] MEDS: LEVOTHYROXINE 25 MCG TAB PO SCH (06:33)
[2016-12-23] MEDS: methylPREDNISolone SOD SUCCI 125 MG/2 ML VIAL IV SCH ×4 (06:33→23:58)
[2016-12-23] MEDS: ACETAMINOPHEN TAB 500 MG TAB PO PRN ×2 (06:44→12:36)
[2016-12-23 07:11] LABS: Anisocytosis Slight; Basophils % (A) 0 %; CH 30.5; CHCM 31.7; Eosinophils % (A) 0 %; HCT 32.2 % (34.0-46.0); HDW 2.66; HGB 10.3 gm/dL (11.4-16.0); Hypochromasia Slight; Luc # (Auto) 0.04; Luc % (Auto) 0; Lymphocytes # (A) 0.2 k/uL (1.0-4.8); Lymphocytes % (A) 2 %; MCH 30.9 pg (25.0-35.0); MCHC 31.9 g/dL (31.0-37.0); MCV 96.9 fL (80.0-100.0); Macrocytosis Slight; Mean Platelet Volume 6.7; Monocytes # (A) 0.3 k/uL (0-1.0); Monocytes % (A) 3 %; Neutrophils # (A) 10.3 k/uL (1.3-7.7); Neutrophils % (A) 95 %; RBC 3.33 m/uL (3.80-5.40); RDW 17.7 % (11.5-15.5); WBC 10.9 k/uL (3.8-10.6); WBC (Perox) 11.28
[2016-12-23 07:35] LABS: ALT 25 U/L (9-52); AST 17 U/L (14-36); Alkaline Phosphatase 86 U/L (38-126); Anion Gap 10 mmol/L; Blood Urea Nitrogen 41 mg/dL (7-17); Calcium 9.5 mg/dL (8.4-10.2); Carbon Dioxide 31 mmol/L (22-30); Chloride 96 mmol/L (98-107); Glucose 122 mg/dL (74-99); Magnesium 1.9 mg/dL (1.6-2.3); Non-African American GFR(MDRD) 55 (>60 ml/min/1.73 sqM); Phosphorous 3.9 mg/dL (2.5-4.5); Potassium 4.6 mmol/L (3.5-5.1); Sodium 137 mmol/L (137-145); Total Bilirubin 0.4 mg/dL (0.2-1.3)
[2016-12-23] MEDS: LEVALBUTEROL NEB 1.25 MG/3 ML AMP INHALATION SCH ×3 (07:42→20:56)
[2016-12-23] MEDS: FORMOTEROL FUMARATE 20 MCG/2 ML NEBU INHALATION SCH ×2 (07:42→20:56)
--- NOTE | 2016-12-23 07:59 | XR ---
EXAMINATION TYPE: XR chest 1V portable DATE OF EXAM: 12/23/2016 6:47 AM HISTORY: Shortness of breath. COMPARISON: 12/22/2016 TECHNIQUE: Single view of the chest is submitted. FINDINGS: Demonstrated are scattered senescent parenchymal change. Persistent patchy and nodular airspace infiltrates are seen throughout the right lung as well as a op acification of the left lower lobe. Small effusions are suspected. Overall no significant changes raz reciated. The heart is stable. Hilar and mediastinal structures are within normal limits. Degenerative changes are seen of the dorsal spine. IMPRESSION: 1. Stable chest.
[2016-12-23] MEDS: POTASSIUM CHLORIDE ER 10 MEQ TAB.ER.PRT PO SCH ×2 (08:49→21:54)
[2016-12-23] MEDS: HEPARIN SODIUM,PORCINE 5,000 UNIT/ML 1 ML VIAL SQ SCH ×2 (08:49→15:04)
[2016-12-23] MEDS: METOPROLOL TARTRATE 25 MG TAB PO SCH ×3 (08:50→21:55)
[2016-12-23] MEDS: MAGNESIUM OXIDE 400 MG TAB PO SCH (08:50)
[2016-12-23] MEDS: FUROSEMIDE 10 MG/ML 4 ML VIAL IV SCH (08:50)
[2016-12-23] MEDS: FOLIC ACID 1 MG TAB PO SCH (08:51)
[2016-12-23] MEDS: ASPIRIN 81 MG CHEW PO SCH (08:51)
[2016-12-23] MEDS: CHLORPHEN-HYDROcod 8-10mg/5ml 5 ML ORAL.SYRG PO SCH ×2 (08:53→21:55)
[2016-12-23 11:58] LABS: Glucose,Whole Blood 205 mg/dL (75-99)
--- NOTE | 2016-12-23 12:08 | P.PN ---
Subjective Principal diagnosis: Acute on chronic respiratory failure secondary to COPD and stage IV adenocarcinoma of the lungs 71-year-old female patient with known history of metastatic adenocarcinoma of the lung, stage IV disease treated with systemic chemotherapy with a combination of carboplatinum and Alimta. The patient had completed a total of 3 cycles of systemic chemotherapy and radiation therapy to her chest. The patient initially came to presented with a left supraclavicular lymphadenopathy and a left upper lobe mass with extensive mediastinal lymphadenopathy for which the patient underwent a biopsy of the supraclavicular lymph node and the patient was diagnosed having an adenocarcinoma of the lung. The patient was also found to have a left vocal cord paralysis related to the thoracic tumor. The patient has COPD and chronic hypoxic respiratory failure. The patient was started on systemic chemotherapy. Her latest hospitalization was in November 2016 where the patient presented with dry heaves and nausea vomiting and dehydration and electrodes imbalance post systemic chemotherapy. The patient was stabilized and she was discharged home. Since then the patient has not received any further systemic chemotherapy. The patient completed her last session of systemic chemotherapy approximately a month ago. She is under the care of Dr. Davis and she is being considered for immunotherapy. The patient came into the hospital because of worsening shortness of breath. This started this morning as the patient woke up with increased difficulty breathing. She typically uses 3 L of oxygen at home and she was reported to be hypoxic with a pulse ox of 84% of these of oxygen nasal cannula up on EMS arrival to her house. The patient was placed on a 100% percent nonrebreather. She was brought to the emergency which she was given DuoNeb nebulized treatments and IV Solu-Medrol and she was placed on BiPAP treatment. Lactic acid level was elevated at 2.8 and subsequently dropped down to 1.8. First set of troponins of 0.127. White cell count is not elevated at 13.6. Rest of the electrodes are all within normal limits. The BNP level is at 420. I discussed the case with the emergency department doctor and I asked him to proceed with a computed tomography scan of the chest which Completed. I reviewed the CAT scan of the chest and neck compared to the earlier CAT scan that was done in November 2016. There is worsening and another metastatic lesions throughout the lung fischer bilaterally more so on the right. The pleural fluids are essentially stable in the lung bases probably likely worse on the left. There is no evidence of pulmonary embolism. The patient is currently on 3 L and she is off the BiPAP. Reevaluated today on 12/22/2016, patient is overall about the same, maybe at that better compared to yesterday. Remains on bronchodilators, remains on oxygen, I reviewed the CT of the chest with the patient, and clearly shows diffuse metastatic disease patient is very well aware of the poor prognostic picture. Awaiting recommendation from oncology regarding future treatment plan. All labs were reviewed and they seem to be relatively unremarkable. Reevaluated on 12/23/2016, feeling better today, breathing a lot easier. Less cough and less wheezing less shortness of breath. Patient seems to be improving but her chest x-ray and her CT of the chest are still concerning, and I still believe the overall prognostic picture is extremely poor.CBC and basic metabolic profile were reviewed from today, and they seem to be relatively unremarkable. Objective - Vital Signs Vital signs: Vital Signs Temp 97.7 F 12/23/16 08:00 Pulse 87 12/23/16 11:29 Resp 20 12/23/16 11:29 BP 111/59 12/23/16 11:29 Pulse Ox 93 L 12/23/16 11:29 Intake & Output 12/22/16 12/23/16 12/23/16 18:59 06:59 18:59 Intake Total 240 220 237 Output Total 1120 350 Balance -880 -130 237 Weight 60.4 kg 62.5 kg Intake: IV 140 220 0.9 NS 140 220 Intake, IV Titration 100 Amount Levofloxacin 500Mg-D5w 100 Pmx 500 mg In Dextrose/ Water 1 100ml.bag @ 100 mls/hr IVPB ONCE STA Rx#: [id number] Oral 237 Output: Urine 1120 350 Other: Voiding Method Indwelling Catheter Indwelling Catheter Indwelling Catheter # Voids 1 1 # Bowel Movements 1 - Exam Head exam was generally normal. There was no scleral icterus or corneal arcus. Mucous membranes were moist.Neck was supple and without jugular venous distension, thyromegaly, or carotid bruits. Carotids were easily palpable bilaterally. There was no adenopathy. Lung sounds are diminished bilaterally and there is few rales over the lung bases. There are diminished breath sounds and there is prolongation of the expiratory phase of breathing and scattered expiratory wheezes heard throughout the lung fischer bilaterally.Cardiac exam revealed the PMI to be normally situated and sized. The rhythm was regular and no extrasystoles were noted during several minutes of auscultation. The first and second heart sounds were normal and physiologic splitting of the second heart sound was noted. There were no murmurs, rubs, clicks, or gallops.Abdominal exam revealed normal bowel sounds. The abdomen was soft, non- tender, and without masses, organomegaly, or appreciable enlargement of the abdominal aorta.Examination of the extremities revealed easily palpable radial, femoral and pedal pulses. There was no cyanosis, clubbing or edema. - Labs CBC & Chem 7: 12/23/16 06:25 12/23/16 06:25 Labs: Abnormal Lab Results - Last 24 Hours (Table) 12/22/16 12/22/16 12/22/16 Range/Units 12:18 17:30 21:13 WBC (3.8-10.6) k/uL RBC (3.80-5.40) m/uL Hgb (11.4-16.0) gm/dL Hct (34.0-46.0) % RDW (11.5-15.5) % Neutrophils # (1.3-7.7) k/uL Lymphocytes # (1.0-4.8) k/uL Chloride (98-107) mmol/L Carbon Dioxide (22-30) mmol/L BUN (7-17) mg/dL Glucose (74-99) mg/dL POC Glucose (mg/dL) 132 H 182 H 112 H (75-99) mg/dL Total Protein (6.3-8.2) g/dL Albumin (3.5-5.0) g/dL 12/22/16 12/23/16 12/23/16 Range/Units 23:22 06:13 06:25 WBC 10.9 H (3.8-10.6) k/uL RBC 3.33 L (3.80-5.40) m/uL Hgb 10.3 L (11.4-16.0) gm/dL Hct 32.2 L (34.0-46.0) % RDW 17.7 H (11.5-15.5) % Neutrophils # 10.3 H (1.3-7.7) k/uL Lymphocytes # 0.2 L (1.0-4.8) k/uL Chloride (98-107) mmol/L Carbon Dioxide (22-30) mmol/L BUN (7-17) mg/dL Glucose (74-99) mg/dL POC Glucose (mg/dL) 132 H 121 H (75-99) mg/dL Total Protein (6.3-8.2) g/dL Albumin (3.5-5.0) g/dL 12/23/16 12/23/16 Range/Units 06:25 11:53 WBC (3.8-10.6) k/uL RBC (3.80-5.40) m/uL Hgb (11.4-16.0) gm/dL Hct (34.0-46.0) % RDW (11.5-15.5) % Neutrophils # (1.3-7.7) k/uL Lymphocytes # (1.0-4.8) k/uL Chloride 96 L (98-107) mmol/L Carbon Dioxide 31 H (22-30) mmol/L BUN 41 H (7-17) mg/dL Glucose 122 H (74-99) mg/dL POC Glucose (mg/dL) 205 H (75-99) mg/dL Total Protein 6.0 L (6.3-8.2) g/dL Albumin 3.3 L (3.5-5.0) g/dL Assessment and Plan Plan: 1 metastatic stage IV adenocarcinoma of the lung, post systemic chemotherapy with 3 cycles of carboplatinum and Alimta and palliative radiation therapy. 2 acute on top of chronic respiratory failure with worsening hypoxemia. CAT scan of the chest was noted and there is no evidence of pulmonary embolism yet that is progression of the nodular metastatic lesions bilaterally more so on the right. In addition, the patient has noted increase in size of the lymphadenopathy in the axillary in the supraclavicular area. This is in agreement with her disease progression. Acute decompensation is also related to her COPD exacerbation. Patient will be treated 3 chronic bilateral pleural effusions, likely malignant 4 advanced COPD with chronic hypoxic respiratory failure maintained on 3 L of oxygen by nasal cannula on outpatient basis 5 left vocal cord paralysis with secondary hoarseness 6 breast cancer history of 7 hyperlipidemia 8 hypertension 9 GE reflux 10 generalized weakness with diminished oral intake and poor baseline performance and functional status. Recommendation: Continue present treatment plan, continue bronchodilators antibiotics and steroids, long-term prognosis is extremely poor and guarded. Consider discharge planning in the next 24-48 hours. Time with Patient: Less than 30
--- NOTE | 2016-12-23 15:01 | P.PN ---
Subjective This is a 71-year-old female patient of Dr. Kiana Davis has a recent diagnosis of a lung mass which is considered to be of a primary lung. Her history dates back to around a few months back when she started having symptoms of increased cough and shortness of breath and she was given several rounds of antibiotics and ultimately she had a CAT scan of the chest on April 2016 which showed a mass like consolidation in the lingula in addition to left hilar, subcarinal, right hilar and an left supraclavicular lymphadenopathy. Based on this, the patient was sent on July 2016 for a fine-needle aspirate of the supraclavicular lymph node and a diagnosis was consistent with adenocarcinoma and the pathologist favored a GI origin rather than lungs. A PET scan was also completed which also confirmed the findings with her was a left upper lobe mass extending to the left hilar and supraclavicular area with intense uptake consistent with primary lung carcinoma. Based on the path report, the patient was referred to [facility] for a second opinion. The patient was able to see Dr. Casie Montero and she is seeing Dr. Davis locally. In addition, the mediastinal mass is causing mass effect on the mid esophagus causing proximal esophageal dilatation. Apparently the patient was discharged and has been following with Dr. Davis and she has been getting chemotherapy, her last chemotherapy in the form of carboplatin and Alimta Patient did receive 10 courses of radiation therapy prior to her chemotherapy.. She has 1 more course of chemotherapy however this is abandoned secondary to poor performance based on her last admission from our facility 11/30/2016. sHe was admitted at that time secondary to COPD exacerbation,cachexia, malnutrition, metastatic lung cancer stage IV adenocarcinoma. 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 from her last admission no new medications she was discharged with tapering prednisone and oral antibiotic then She was discharged to home, she was using her O2 at 3 L nasal cannula from a previous of 2 L a cannula as the patient has increasing difficulty, nebulized treatments 3 times a day is not very helpful, she has increased shortness of breath bilateral pleuritic rib cage pain, weight loss, diminished appetite, no fever no aspiration, patient denies any lower extremity edema or calf pain, she has pleurisy mainly bilateral lower rib cage pain patient has no nausea no vomiting he was evaluated by the EMS she required CPAP treatments and routed to the emergency room Patient was evaluated in emergency room she required BiPAP treatments at that time secondary to hypoxemia and increasing respiratory distress, she was subsequently admitted. Chest x-ray shows pulmonary edema, during my examination on her in the emergency room, she requires BiPAP treatments however she is much more comfortable after diuresing with IV Lasix. Computed tomography scan of the chest failed to reveal any pulmonary emboli however there is significant tumor burden noted on her CT which seems to be worsening compared to her previous CT in November,, bilateral pleural effusion noted with nodules superimposed pneumonitis She was subsequently transferred to ICU her CODE STATUS is DO NOT RESUSCITATE no ventilatory support where she would be seen in consultation by Dr. Remy and Dr. Davis and Dr. KIMBERLI Cerna. 12/22: Triglycerides 213, cholesterol 194, LDL 54, HDL 97. Repeat chest x-ray shows stable patchy bilateral infiltrates at the left base and to the right lung. A new bilateral rib pain for which morphine IV has been ordered. Patient has been cleared by Dr. Teran for transfer to [facility]. Family is anxious to speak with oncology regarding new medication for stage IV lung cancer. She is continued on Solu-Medrol 60 mg every 6 hours and Lasix is a 40 mg IV every day. Echocardiogram reveals mild mitral regurgitation, trace tricuspid regurgitation, small generalized pericardial effusion, mild left ventricular hypertrophy with EF of 55-60%. 12/23: Patient's family is requesting that we signed off the case. Admitting attending physician changed to Dr. Carbajal per family request. Objective - Vital Signs Vital signs: Vital Signs Temp 97.7 F 12/23/16 08:00 Pulse 103 H 12/23/16 08:00 Resp 20 12/23/16 08:00 BP 127/67 12/23/16 08:00 Pulse Ox 93 L 12/23/16 08:00 Intake & Output 12/22/16 12/23/16 12/23/16 18:59 06:59 18:59 Intake Total 240 220 237 Output Total 1120 350 Balance -880 -130 237 Weight 60.4 kg 62.5 kg Intake: IV 140 220 0.9 NS 140 220 Intake, IV Titration 100 Amount Levofloxacin 500Mg-D5w 100 Pmx 500 mg In Dextrose/ Water 1 100ml.bag @ 100 mls/hr IVPB ONCE STA Rx#: [id number] Oral 237 Output: Urine 1120 350 Other: Voiding Method Indwelling Catheter Indwelling Catheter Indwelling Catheter # Voids 1 1 # Bowel Movements 1 - Exam General appearance: cooperative, mild distress, thin - EENT Eyes: anicteric sclerae, EOMI, PERRLA, dentition normal, normal appearance ENT: no hard of hearing, no hearing grossly normal, NA/AT, normal oropharynx, no other, no pharyngeal erythema, no thrush, no tonsillar exudates, no tonsillar swelling - Neck Neck: no lymphadenopathy, normal ROM, no other, no rigidity, no stridor, no thyromegaly - Respiratory Respiratory: bilateral: CTA, negative: diminished, dullness, rales, rhonchi - Cardiovascular Rhythm: regular Heart sounds: normal: S1 Abnormal Heart Sounds: no systolic murmur, no diastolic murmur, no rub, no S3 Gallop, no S4 Gallop, no click, no other - Gastrointestinal General gastrointestinal: normal bowel sounds, soft - Integumentary Integumentary: cyanotic, normal - Neurologic Neurologic: CNII-XII intact - Musculoskeletal Musculoskeletal: generalized weakness, strength equal bilaterally - Psychiatric Psychiatric: A&O x's 3, appropriate affect, intact judgment & insight - Labs CBC & Chem 7: 12/23/16 06:25 12/23/16 06:25 Labs: Abnormal Lab Results - Last 24 Hours (Table) 12/22/16 12/22/16 12/22/16 Range/Units 12:18 17:30 21:13 WBC (3.8-10.6) k/uL RBC (3.80-5.40) m/uL Hgb (11.4-16.0) gm/dL Hct (34.0-46.0) % RDW (11.5-15.5) % Neutrophils # (1.3-7.7) k/uL Lymphocytes # (1.0-4.8) k/uL Chloride (98-107) mmol/L Carbon Dioxide (22-30) mmol/L BUN (7-17) mg/dL Glucose (74-99) mg/dL POC Glucose (mg/dL) 132 H 182 H 112 H (75-99) mg/dL Total Protein (6.3-8.2) g/dL Albumin (3.5-5.0) g/dL 12/22/16 12/23/16 12/23/16 Range/Units 23:22 06:13 06:25 WBC 10.9 H (3.8-10.6) k/uL RBC 3.33 L (3.80-5.40) m/uL Hgb 10.3 L (11.4-16.0) gm/dL Hct 32.2 L (34.0-46.0) % RDW 17.7 H (11.5-15.5) % Neutrophils # 10.3 H (1.3-7.7) k/uL Lymphocytes # 0.2 L (1.0-4.8) k/uL Chloride (98-107) mmol/L Carbon Dioxide (22-30) mmol/L BUN (7-17) mg/dL Glucose (74-99) mg/dL POC Glucose (mg/dL) 132 H 121 H (75-99) mg/dL Total Protein (6.3-8.2) g/dL Albumin (3.5-5.0) g/dL 12/23/16 Range/Units 06:25 WBC (3.8-10.6) k/uL RBC (3.80-5.40) m/uL Hgb (11.4-16.0) gm/dL Hct (34.0-46.0) % RDW (11.5-15.5) % Neutrophils # (1.3-7.7) k/uL Lymphocytes # (1.0-4.8) k/uL Chloride 96 L (98-107) mmol/L Carbon Dioxide 31 H (22-30) mmol/L BUN 41 H (7-17) mg/dL Glucose 122 H (74-99) mg/dL POC Glucose (mg/dL) (75-99) mg/dL Total Protein 6.0 L (6.3-8.2) g/dL Albumin 3.3 L (3.5-5.0) g/dL Assessment and Plan Plan: 1. Severe respiratory distress Acute pulmonary edema presenting with acute respiratory hypoxemic on chronic hypoxemic respiratory failure, underlying COPD exacerbation and metastatic lung carcinoma patient will be diuresed at 40 mg IV every 24 hours she is running low on her blood pressure currently, she is in ICU requiring CPAP treatments, consults were made with cardiology and Dr. Remy pulmonary. Echocardiogram as above 2. Advanced stage IV adenocarcinoma of the lung with primary lesion noted in June 2016 completing 10 regurgitation treatments, last chemotherapy 2016 for which it cannot be completed secondary to poor performance, oncology is consulted she required at that time carboplatin and Alimta on her fourth cycle. She is not wanting to pursue additional chemotherapy however is interested in immunomodulating treatments for lung cancer. Consults with oncology Dr. Enciso 3. Pulmonary cachexia and severe protein calorie malnutrition, Remeron would be reinitiated, she has progressive weight loss and anorexia, protein supplementation and caloric supplementation 3 times a day ensure 4. COPD exacerbation, patient will be started on IV steroids, nebulized albuterol and Atrovent, 5. pneumonitis however significant tumor burden noted bilaterally, postobstructive pneumonia cannot be ruled out, patient is on IV Levaquin 6. Pre-renal azotemia. Start IV fluid resuscitation the form of normal saline at 100 mL an hour, monitor CMP magnesium tomorrow morning. 7. Hypertension and hypertensive cardiovascular disehome medodipine 5 mg orally once every day.which would be on hold until blood pressure stabilizes 8. Hyperlipidemia. Continue simvastatin 20 mg orally bedtime. which would be on hold secondary to cachexia and fyutile efficacy secondary to advanced lung carcinoma 9. Hypothyroidism. Continue Synthroid 25 g orally once every day. 10. Vitamin D deficiency. Continue vitamin D3 1000 international units once every day. 11. History of breast cancer status post left lumpectomy with radiation and 5 year hormonal therapy. 12. Hoarseness secondary to vocal cord paralysis. Stable at this time 13 Pulmonary anxiety on chronic benzodiazepine use 14. Elevated troponin unknown significance at this time 15. 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 VTEprophylaxis. Heparin 5000 units subcutaneously every 12 hours, bilateral knee-high MACY hose. 16. GI prophylaxis. Continue Protonix 40 mg IV push every 24 hours. 17. Advanced Care Planning discussed in detail, patient does not want CPR no ventilatory support, she wants pursue aggressive treatments, no chemotherapy, feeding tube has not been fully decided and was not discussed in detail at this time. They're not quite ready yet for hospice until discussion with Dr. Enciso for immunomodulating treatments for lung cancer which family decided Impression and plan of care have been directed as dictated by the signing physician. Ashlyn Jay nurse practitioner acting as scribe for signing physician. Time with Patient: Greater than 30
--- NOTE | 2016-12-23 16:24 | P.PN ---
Subjective Principal diagnosis: DEE DEE, COPD exacerbation Pt seen today in f/u, she is out of ICU, she is on O2 NC at 5L, she is sleeping with bipap, she states feeling better today then yesterday, she is breathing better, voice is hoarse but unchanged, cough is dry, she did get up to commode today. Objective - Vital Signs Vital signs: Vital Signs Temp 97.7 F 12/23/16 08:00 Pulse 104 H 12/23/16 15:19 Resp 20 12/23/16 15:19 BP 127/58 12/23/16 15:19 Pulse Ox 97 12/23/16 15:19 Intake & Output 12/22/16 12/23/16 12/23/16 18:59 06:59 18:59 Intake Total 240 220 474 Output Total 1120 350 Balance -880 -130 474 Weight 60.4 kg 62.5 kg Intake: IV 140 220 0.9 NS 140 220 Intake, IV Titration 100 Amount Levofloxacin 500Mg-D5w 100 Pmx 500 mg In Dextrose/ Water 1 100ml.bag @ 100 mls/hr IVPB ONCE STA Rx#: [id number] Oral 474 Output: Urine 1120 350 Other: Voiding Method Indwelling Catheter Indwelling Catheter Indwelling Catheter # Voids 1 1 # Bowel Movements 1 - Constitutional General appearance: Present: cooperative, no acute distress, thin - EENT EENT Comment(s): dry mucus membranes, no thrush or ulcers Eyes: Present: normal appearance - Respiratory Respiratory: bilateral: diminished, prolonged expiration - Cardiovascular Heart sounds: normal: S1, S2 - Peripheral edema leg Peripheral Edema: bilateral: None - Gastrointestinal General gastrointestinal: Present: normal bowel sounds, soft. Absent: absent bowel sounds, decreased bowel sounds, distended, hepatomegaly, hyperactive bowel sounds, organomegaly, rigid, scaphoid, splenomegaly, tenderness, umbilical hernia, ventral hernia - Neurologic Neurologic: Present: CNII-XII intact - Musculoskeletal Musculoskeletal: Present: generalized weakness, strength equal bilaterally - Psychiatric Psychiatric: Present: A&O x's 3, appropriate affect, intact judgment & insight - Labs CBC & Chem 7: 12/23/16 06:25 12/23/16 06:25 Labs: Abnormal Lab Results - Last 24 Hours (Table) 12/22/16 12/22/16 12/22/16 Range/Units 17:30 21:13 23:22 WBC (3.8-10.6) k/uL RBC (3.80-5.40) m/uL Hgb (11.4-16.0) gm/dL Hct (34.0-46.0) % RDW (11.5-15.5) % Neutrophils # (1.3-7.7) k/uL Lymphocytes # (1.0-4.8) k/uL Chloride (98-107) mmol/L Carbon Dioxide (22-30) mmol/L BUN (7-17) mg/dL Glucose (74-99) mg/dL POC Glucose (mg/dL) 182 H 112 H 132 H (75-99) mg/dL Total Protein (6.3-8.2) g/dL Albumin (3.5-5.0) g/dL 12/23/16 12/23/16 12/23/16 Range/Units 06:13 06:25 06:25 WBC 10.9 H (3.8-10.6) k/uL RBC 3.33 L (3.80-5.40) m/uL Hgb 10.3 L (11.4-16.0) gm/dL Hct 32.2 L (34.0-46.0) % RDW 17.7 H (11.5-15.5) % Neutrophils # 10.3 H (1.3-7.7) k/uL Lymphocytes # 0.2 L (1.0-4.8) k/uL Chloride 96 L (98-107) mmol/L Carbon Dioxide 31 H (22-30) mmol/L BUN 41 H (7-17) mg/dL Glucose 122 H (74-99) mg/dL POC Glucose (mg/dL) 121 H (75-99) mg/dL Total Protein 6.0 L (6.3-8.2) g/dL Albumin 3.3 L (3.5-5.0) g/dL 12/23/16 Range/Units 11:53 WBC (3.8-10.6) k/uL RBC (3.80-5.40) m/uL Hgb (11.4-16.0) gm/dL Hct (34.0-46.0) % RDW (11.5-15.5) % Neutrophils # (1.3-7.7) k/uL Lymphocytes # (1.0-4.8) k/uL Chloride (98-107) mmol/L Carbon Dioxide (22-30) mmol/L BUN (7-17) mg/dL Glucose (74-99) mg/dL POC Glucose (mg/dL) 205 H (75-99) mg/dL Total Protein (6.3-8.2) g/dL Albumin (3.5-5.0) g/dL - Imaging and Cardiology Chest x-ray: report reviewed Assessment and Plan (1) Adenocarcinoma of lung Narrative/Plan: Agree with COPD exacerbation treatment, pt seems to be improving at this time. Dr. Carbajal did discuss with pt and family the possibility of her respiratory symptoms being related to COPD exacerbation or malignancy. If she continues to improve then likely presentation is r/t COPD, if she does not improve then likely it is due to malignancy. Plan is to continue aggressive COPD treatment at this time, monitor pt progress over the next 2-3 days then, based on clinical presentation, further treatment plans will be discussed. Status: Chronic
[2016-12-23 16:46] LABS: Glucose,Whole Blood 289 mg/dL (75-99)
[2016-12-23] MEDS ORDERED: LEVOFLOXACIN 750MG-D5W PMX 750 MG in DEXTROSE/WATER 1 150ML.BAG IVPB SCH (21:00)
[2016-12-23 21:18] LABS: Glucose,Whole Blood 226 mg/dL (75-99)
[2016-12-23] MEDS: ACETAMINOPHEN TAB 500 MG TAB PO SCH (21:54)
[2016-12-23] MEDS: MIRTAZAPINE 15 MG TAB PO SCH (21:54)
[2016-12-23] MEDS: ALPRAZolam 0.5 MG TAB PO SCH (21:55)
[2016-12-24] MEDS: HEPARIN SODIUM,PORCINE 5,000 UNIT/ML 1 ML VIAL SQ SCH ×3 (01:04→15:33)
[2016-12-24 05:56] LABS: Glucose,Whole Blood 127 mg/dL (75-99)
[2016-12-24] MEDS: INSULIN LISPRO (humaLOG) 300 UNIT/3 ML VIAL SQ SCH ×4 (06:47→21:44)
[2016-12-24] MEDS: methylPREDNISolone SOD SUCCI 125 MG/2 ML VIAL IV SCH ×3 (06:49→17:35)
[2016-12-24] MEDS: PANTOPRAZOLE 40 MG TABLET PO SCH (06:49)
[2016-12-24] MEDS: LEVOTHYROXINE 25 MCG TAB PO SCH (06:49)
[2016-12-24 06:51] LABS: Anisocytosis Slight; Basophils % (A) 0 %; CHCM 30.6; Eosinophils % (A) 0 %; HCT 33.4 % (34.0-46.0); HDW 2.65; HGB 10.3 gm/dL (11.4-16.0); Hypochromasia Moderate; Luc # (Auto) 0.03; Luc % (Auto) 0; Lymphocytes # (A) 0.1 k/uL (1.0-4.8); Lymphocytes % (A) 1 %; MCH 30.4 pg (25.0-35.0); MCHC 30.9 g/dL (31.0-37.0); MCV 98.3 fL (80.0-100.0); Macrocytosis Slight; Monocytes # (A) 0.3 k/uL (0-1.0); Monocytes % (A) 2 %; Neutrophils # (A) 11.1 k/uL (1.3-7.7); Neutrophils % (A) 96 %; RBC 3.39 m/uL (3.80-5.40); RDW 17.6 % (11.5-15.5); WBC 11.6 k/uL (3.8-10.6); WBC (Perox) 12.27
[2016-12-24 07:10] LABS: Phosphorous 2.6 mg/dL (2.5-4.5)
[2016-12-24] MEDS: FORMOTEROL FUMARATE 20 MCG/2 ML NEBU INHALATION SCH ×2 (07:55→20:58)
[2016-12-24] MEDS: LEVALBUTEROL NEB 1.25 MG/3 ML AMP INHALATION SCH ×3 (07:55→20:58)
[2016-12-24] MEDS: MAGNESIUM OXIDE 400 MG TAB PO SCH (08:16)
[2016-12-24] MEDS: METOPROLOL TARTRATE 25 MG TAB PO SCH ×3 (08:16→21:44)
[2016-12-24] MEDS: ASPIRIN 81 MG CHEW PO SCH (08:16)
[2016-12-24] MEDS: FUROSEMIDE 10 MG/ML 4 ML VIAL IV SCH (08:17)
[2016-12-24] MEDS: POTASSIUM CHLORIDE ER 10 MEQ TAB.ER.PRT PO SCH ×2 (08:17→20:15)
[2016-12-24] MEDS: FOLIC ACID 1 MG TAB PO SCH (08:17)
--- NOTE | 2016-12-24 08:18 | XR ---
EXAMINATION TYPE: XR chest 1V portable DATE OF EXAM: 12/24/2016 6:49 AM CLINICAL HISTORY: Difficulty breathing progress study. TECHNIQUE: Single AP portable frontal view of the chest is obtained. COMPARISON: Chest x-ray from one day earlier. CTA chest from 3 days earlier. FINDINGS: There is chronic emphysematous change with multifocal masslike infiltrates identified bila terally more prominent in the lower lungs. There is persistent small right and moderate size left ple ural effusion. No pneumothorax is seen bilaterally. There is suspected some left-sided volume loss wi th mediastinal shift. Osseous structures are intact. Cardiac silhouette size is stable and felt withi n normal limits with atherosclerotic aortic knob. 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
[2016-12-24] MEDS: CHLORPHEN-HYDROcod 8-10mg/5ml 5 ML ORAL.SYRG PO SCH ×2 (08:20→21:45)
--- NOTE | 2016-12-24 09:44 | P.PN ---
Subjective Principal diagnosis: Acute on chronic respiratory failure secondary to COPD and stage IV adenocarcinoma of the lungs 71-year-old female patient with known history of metastatic adenocarcinoma of the lung, stage IV disease treated with systemic chemotherapy with a combination of carboplatinum and Alimta. The patient had completed a total of 3 cycles of systemic chemotherapy and radiation therapy to her chest. The patient initially came to presented with a left supraclavicular lymphadenopathy and a left upper lobe mass with extensive mediastinal lymphadenopathy for which the patient underwent a biopsy of the supraclavicular lymph node and the patient was diagnosed having an adenocarcinoma of the lung. The patient was also found to have a left vocal cord paralysis related to the thoracic tumor. The patient has COPD and chronic hypoxic respiratory failure. The patient was started on systemic chemotherapy. Her latest hospitalization was in November 2016 where the patient presented with dry heaves and nausea vomiting and dehydration and electrodes imbalance post systemic chemotherapy. The patient was stabilized and she was discharged home. Since then the patient has not received any further systemic chemotherapy. The patient completed her last session of systemic chemotherapy approximately a month ago. She is under the care of Dr. Davis and she is being considered for immunotherapy. The patient came into the hospital because of worsening shortness of breath. This started this morning as the patient woke up with increased difficulty breathing. She typically uses 3 L of oxygen at home and she was reported to be hypoxic with a pulse ox of 84% of these of oxygen nasal cannula up on EMS arrival to her house. The patient was placed on a 100% percent nonrebreather. She was brought to the emergency which she was given DuoNeb nebulized treatments and IV Solu-Medrol and she was placed on BiPAP treatment. Lactic acid level was elevated at 2.8 and subsequently dropped down to 1.8. First set of troponins of 0.127. White cell count is not elevated at 13.6. Rest of the electrodes are all within normal limits. The BNP level is at 420. I discussed the case with the emergency department doctor and I asked him to proceed with a computed tomography scan of the chest which Completed. I reviewed the CAT scan of the chest and neck compared to the earlier CAT scan that was done in November 2016. There is worsening and another metastatic lesions throughout the lung fischer bilaterally more so on the right. The pleural fluids are essentially stable in the lung bases probably likely worse on the left. There is no evidence of pulmonary embolism. The patient is currently on 3 L and she is off the BiPAP. Reevaluated today on 12/22/2016, patient is overall about the same, maybe at that better compared to yesterday. Remains on bronchodilators, remains on oxygen, I reviewed the CT of the chest with the patient, and clearly shows diffuse metastatic disease patient is very well aware of the poor prognostic picture. Awaiting recommendation from oncology regarding future treatment plan. All labs were reviewed and they seem to be relatively unremarkable. Reevaluated on 12/23/2016, feeling better today, breathing a lot easier. Less cough and less wheezing less shortness of breath. Patient seems to be improving but her chest x-ray and her CT of the chest are still concerning, and I still believe the overall prognostic picture is extremely poor.CBC and basic metabolic profile were reviewed from today, and they seem to be relatively unremarkable. Reevaluated on 12/24/2016, improving slowly but surely. Less cough and less wheezing less shortness of breath, it is surprising that the patient is doing better than expected considering her advanced age lungs CA. Patient has a stage IV lung cancer. Objective - Vital Signs Vital signs: Vital Signs Temp 97.8 F 12/24/16 00:00 Pulse 94 12/24/16 08:12 Resp 18 12/24/16 08:00 BP 146/80 12/24/16 08:00 Pulse Ox 93 L 12/24/16 08:00 Intake & Output 12/23/16 12/24/16 12/24/16 18:59 06:59 18:59 Intake Total 711 120 Output Total 1000 500 Balance -289 -500 120 Weight 64.5 kg Intake: Oral 711 120 Output: Urine 1000 500 Other: Voiding Method Indwelling Catheter Indwelling Catheter Indwelling Catheter # Bowel Movements 1 - Exam Head exam was generally normal. There was no scleral icterus or corneal arcus. Mucous membranes were moist.Neck was supple and without jugular venous distension, thyromegaly, or carotid bruits. Carotids were easily palpable bilaterally. There was no adenopathy. Lung sounds are diminished bilaterally and there is few rales over the lung bases. There are diminished breath sounds no rhonchi, no wheezes..Cardiac exam revealed the PMI to be normally situated and sized. The rhythm was regular and no extrasystoles were noted during several minutes of auscultation. The first and second heart sounds were normal and physiologic splitting of the second heart sound was noted. There were no murmurs, rubs, clicks, or gallops.Abdominal exam revealed normal bowel sounds. The abdomen was soft, non-tender, and without masses, organomegaly, or appreciable enlargement of the abdominal aorta.Examination of the extremities revealed easily palpable radial, femoral and pedal pulses. There was no cyanosis , clubbing or edema. - Labs CBC & Chem 7: 12/24/16 06:10 12/23/16 06:25 Labs: Abnormal Lab Results - Last 24 Hours (Table) 12/23/16 12/23/16 12/23/16 Range/Units 11:53 16:44 21:15 WBC (3.8-10.6) k/uL RBC (3.80-5.40) m/uL Hgb (11.4-16.0) gm/dL Hct (34.0-46.0) % MCHC (31.0-37.0) g/dL RDW (11.5-15.5) % Neutrophils # (1.3-7.7) k/uL Lymphocytes # (1.0-4.8) k/uL POC Glucose (mg/dL) 205 H 289 H 226 H (75-99) mg/dL 12/24/16 12/24/16 Range/Units 05:44 06:10 WBC 11.6 H (3.8-10.6) k/uL RBC 3.39 L (3.80-5.40) m/uL Hgb 10.3 L (11.4-16.0) gm/dL Hct 33.4 L (34.0-46.0) % MCHC 30.9 L (31.0-37.0) g/dL RDW 17.6 H (11.5-15.5) % Neutrophils # 11.1 H (1.3-7.7) k/uL Lymphocytes # 0.1 L (1.0-4.8) k/uL POC Glucose (mg/dL) 127 H (75-99) mg/dL Microbiology - Last 24 Hours (Table) 12/21/16 13:30 Urine Culture - Final Urine,Voided Enterococcus faecalis Assessment and Plan Plan: 1 metastatic stage IV adenocarcinoma of the lung, post systemic chemotherapy with 3 cycles of carboplatinum and Alimta and palliative radiation therapy. 2 acute on top of chronic respiratory failure with worsening hypoxemia. CAT scan of the chest was noted and there is no evidence of pulmonary embolism yet that is progression of the nodular metastatic lesions bilaterally more so on the right. In addition, the patient has noted increase in size of the lymphadenopathy in the axillary in the supraclavicular area. This is in agreement with her disease progression. Acute decompensation is also related to her COPD exacerbation. Patient will be treated 3 chronic bilateral pleural effusions, likely malignant 4 advanced COPD with chronic hypoxic respiratory failure maintained on 3 L of oxygen by nasal cannula on outpatient basis 5 left vocal cord paralysis with secondary hoarseness 6 breast cancer history of 7 hyperlipidemia 8 hypertension 9 GE reflux 10 generalized weakness with diminished oral intake and poor baseline performance and functional status. Recommendation: Continue present treatment plan, continue bronchodilators antibiotics and steroids, long-term prognosis is extremely poor and guarded. Patient will be cleared for discharge, and follow-up on outpatient basis. Time with Patient: Less than 30
[2016-12-24 11:55] LABS: Glucose,Whole Blood 214 mg/dL (75-99)
[2016-12-24] MEDS: ACETAMINOPHEN TAB 500 MG TAB PO PRN (12:54)
[2016-12-24 16:09] LABS: Glucose,Whole Blood 279 mg/dL (75-99)
[2016-12-24] MEDS: MAG HYDROX/AL HYDROX/SIMETH 30 ML, diphenhydrAMINE ELIXIR 75 MG, LIDOCAINE VISCOUS 30 ML PO SCH ×6 (17:34→20:15)
--- NOTE | 2016-12-24 17:57 | P.PN ---
Subjective Principal diagnosis: DEE DEE, COPD exacerbation Pt seen today in f/u, her respiratory status continues to improve, she was out of bed and working with PT today, she is still on O2 NC at 5L, she did not need to sleep with bipap last night, voice hoarseness is a little better, she can carry on a conversation with less SOB. She states decent appetite, no fevers, nausea, diarrhea or constipation. Objective - Vital Signs Vital signs: Vital Signs Temp 97.8 F 12/24/16 00:00 Pulse 98 12/24/16 13:52 Resp 18 12/24/16 15:21 BP 139/78 12/24/16 12:00 Pulse Ox 93 L 12/24/16 12:00 Intake & Output 12/23/16 12/24/16 12/24/16 18:59 06:59 18:59 Intake Total 711 920 Output Total 1000 500 600 Balance -289 -500 320 Weight 64.5 kg Intake: IV 320 0.9 NS 320 Oral 711 600 Output: Urine 1000 500 600 Other: Voiding Method Indwelling Catheter Indwelling Catheter Bedside Commode # Voids 1 # Bowel Movements 1 - Constitutional General appearance: Present: cooperative, mild distress, thin - EENT EENT Comment(s): oral mucosa is reddened, superficial ulcerations on hard palet Eyes: Present: anicteric sclerae, normal appearance - Respiratory Respiratory: left: diminished, bilateral: rhonchi (scattered) - Cardiovascular Heart sounds: normal: S1, S2 - Peripheral edema leg Peripheral Edema: bilateral: None - Gastrointestinal General gastrointestinal: Present: normal bowel sounds, soft - Neurologic Neurologic: Present: CNII-XII intact - Musculoskeletal Musculoskeletal: Present: generalized weakness, strength equal bilaterally - Psychiatric Psychiatric: Present: A&O x's 3, appropriate affect, intact judgment & insight - Labs CBC & Chem 7: 12/24/16 06:10 12/23/16 06:25 Labs: Abnormal Lab Results - Last 24 Hours (Table) 12/23/16 12/24/16 12/24/16 Range/Units 21:15 05:44 06:10 WBC 11.6 H (3.8-10.6) k/uL RBC 3.39 L (3.80-5.40) m/uL Hgb 10.3 L (11.4-16.0) gm/dL Hct 33.4 L (34.0-46.0) % MCHC 30.9 L (31.0-37.0) g/dL RDW 17.6 H (11.5-15.5) % Neutrophils # 11.1 H (1.3-7.7) k/uL Lymphocytes # 0.1 L (1.0-4.8) k/uL POC Glucose (mg/dL) 226 H 127 H (75-99) mg/dL 12/24/16 12/24/16 Range/Units 11:50 16:03 WBC (3.8-10.6) k/uL RBC (3.80-5.40) m/uL Hgb (11.4-16.0) gm/dL Hct (34.0-46.0) % MCHC (31.0-37.0) g/dL RDW (11.5-15.5) % Neutrophils # (1.3-7.7) k/uL Lymphocytes # (1.0-4.8) k/uL POC Glucose (mg/dL) 214 H 279 H (75-99) mg/dL Microbiology - Last 24 Hours (Table) 12/21/16 13:30 Urine Culture - Final Urine,Voided Enterococcus faecalis - Imaging and Cardiology Chest x-ray: report reviewed Assessment and Plan (1) Adenocarcinoma of lung Narrative/Plan: If pt continues to improve and is dischared home then plan is to start immunotherapy. Pt and family are very aware of her guarded situation. Current care will be continued including abx for cultured UTI, respiratory support and PT. Anticipate DC in then 48 hours if pt remains stable/improved. Status: Chronic Plan: Case was discussed with case management re: bipap at home, they will look into it. GI/DTV prophylaxis
[2016-12-24] MEDS: MIRTAZAPINE 15 MG TAB PO SCH (20:15)
[2016-12-24] MEDS: ALPRAZolam 0.5 MG TAB PO SCH (20:15)
[2016-12-24 21:04] LABS: Glucose,Whole Blood 167 mg/dL (75-99)
[2016-12-25] MEDS: ACETAMINOPHEN TAB 500 MG TAB PO SCH
[2016-12-25] MEDS: methylPREDNISolone SOD SUCCI 125 MG/2 ML VIAL IV SCH ×5 (00:01→21:04)
[2016-12-25] MEDS: HEPARIN SODIUM,PORCINE 5,000 UNIT/ML 1 ML VIAL SQ SCH ×4 (00:01→21:04)
[2016-12-25 06:19] LABS: Glucose,Whole Blood 93 mg/dL (75-99)
[2016-12-25 06:21] LABS: Magnesium 2.1 mg/dL (1.6-2.3); Phosphorous 2.8 mg/dL (2.5-4.5)
[2016-12-25] MEDS: INSULIN LISPRO (humaLOG) 300 UNIT/3 ML VIAL SQ SCH ×4 (06:23→20:28)
[2016-12-25] MEDS: MAG HYDROX/AL HYDROX/SIMETH 30 ML, diphenhydrAMINE ELIXIR 75 MG, LIDOCAINE VISCOUS 30 ML PO SCH ×12 (06:25→20:17)
[2016-12-25] MEDS: LEVOTHYROXINE 25 MCG TAB PO SCH (06:25)
[2016-12-25] MEDS: PANTOPRAZOLE 40 MG TABLET PO SCH (06:25)
[2016-12-25] MEDS: FORMOTEROL FUMARATE 20 MCG/2 ML NEBU INHALATION SCH ×2 (08:00→18:57)
[2016-12-25] MEDS: LEVALBUTEROL NEB 1.25 MG/3 ML AMP INHALATION SCH ×3 (08:01→18:57)
[2016-12-25] MEDS: FUROSEMIDE 10 MG/ML 4 ML VIAL IV SCH (08:47)
[2016-12-25] MEDS: CHLORPHEN-HYDROcod 8-10mg/5ml 5 ML ORAL.SYRG PO SCH ×2 (08:48→20:23)
[2016-12-25] MEDS: POTASSIUM CHLORIDE ER 10 MEQ TAB.ER.PRT PO SCH ×2 (08:49→20:18)
[2016-12-25] MEDS: ACETAMINOPHEN TAB 500 MG TAB PO PRN (08:49)
[2016-12-25] MEDS: METOPROLOL TARTRATE 25 MG TAB PO SCH ×3 (08:50→20:19)
[2016-12-25] MEDS: ASPIRIN 81 MG CHEW PO SCH (08:50)
[2016-12-25] MEDS: FOLIC ACID 1 MG TAB PO SCH (12:05)
[2016-12-25] MEDS: MAGNESIUM OXIDE 400 MG TAB PO SCH (12:05)
--- NOTE | 2016-12-25 12:16 | P.PN ---
Subjective Principal diagnosis: Acute on chronic respiratory failure secondary to COPD and stage IV adenocarcinoma of the lungs 71-year-old female patient with known history of metastatic adenocarcinoma of the lung, stage IV disease treated with systemic chemotherapy with a combination of carboplatinum and Alimta. The patient had completed a total of 3 cycles of systemic chemotherapy and radiation therapy to her chest. The patient initially came to presented with a left supraclavicular lymphadenopathy and a left upper lobe mass with extensive mediastinal lymphadenopathy for which the patient underwent a biopsy of the supraclavicular lymph node and the patient was diagnosed having an adenocarcinoma of the lung. The patient was also found to have a left vocal cord paralysis related to the thoracic tumor. The patient has COPD and chronic hypoxic respiratory failure. The patient was started on systemic chemotherapy. Her latest hospitalization was in November 2016 where the patient presented with dry heaves and nausea vomiting and dehydration and electrodes imbalance post systemic chemotherapy. The patient was stabilized and she was discharged home. Since then the patient has not received any further systemic chemotherapy. The patient completed her last session of systemic chemotherapy approximately a month ago. She is under the care of Dr. Davis and she is being considered for immunotherapy. The patient came into the hospital because of worsening shortness of breath. This started this morning as the patient woke up with increased difficulty breathing. She typically uses 3 L of oxygen at home and she was reported to be hypoxic with a pulse ox of 84% of these of oxygen nasal cannula up on EMS arrival to her house. The patient was placed on a 100% percent nonrebreather. She was brought to the emergency which she was given DuoNeb nebulized treatments and IV Solu-Medrol and she was placed on BiPAP treatment. Lactic acid level was elevated at 2.8 and subsequently dropped down to 1.8. First set of troponins of 0.127. White cell count is not elevated at 13.6. Rest of the electrodes are all within normal limits. The BNP level is at 420. I discussed the case with the emergency department doctor and I asked him to proceed with a computed tomography scan of the chest which Completed. I reviewed the CAT scan of the chest and neck compared to the earlier CAT scan that was done in November 2016. There is worsening and another metastatic lesions throughout the lung fischer bilaterally more so on the right. The pleural fluids are essentially stable in the lung bases probably likely worse on the left. There is no evidence of pulmonary embolism. The patient is currently on 3 L and she is off the BiPAP. Reevaluated today on 12/22/2016, patient is overall about the same, maybe at that better compared to yesterday. Remains on bronchodilators, remains on oxygen, I reviewed the CT of the chest with the patient, and clearly shows diffuse metastatic disease patient is very well aware of the poor prognostic picture. Awaiting recommendation from oncology regarding future treatment plan. All labs were reviewed and they seem to be relatively unremarkable. Reevaluated on 12/23/2016, feeling better today, breathing a lot easier. Less cough and less wheezing less shortness of breath. Patient seems to be improving but her chest x-ray and her CT of the chest are still concerning, and I still believe the overall prognostic picture is extremely poor.CBC and basic metabolic profile were reviewed from today, and they seem to be relatively unremarkable. Reevaluated on 12/24/2016, improving slowly but surely. Less cough and less wheezing less shortness of breath, it is surprising that the patient is doing better than expected considering her advanced age lungs CA. Patient has a stage IV lung cancer. On 12/25/2016, patient is about the same, today she seems to have intermittent episodes of shortness of breath cough and wheezing. All her meds are practically about the same, and she seems to be maximized on bronchodilators and steroids. Today I discussed with the family option of considering hospice since we are very well aware that her condition is terminal, and it is about time that somebody will make family aware that the overall prognosis is definitely poor no matter what. Family is going to discuss with him the lung themselves, and it seems to me that hospice would be the best approach at this point. Clinically the patient is not making significant improvement, and her condition is definitely not curable. We are clearly dealing with a terminal stage IV lung cancer. Not to mention the underlying COPD Objective - Vital Signs Vital signs: Vital Signs Temp 97.6 F 12/25/16 08:00 Pulse 111 H 12/25/16 08:20 Resp 20 12/25/16 08:00 BP 147/77 12/25/16 08:00 Pulse Ox 94 L 12/25/16 08:04 Intake & Output 12/24/16 12/25/16 12/25/16 18:59 06:59 18:59 Intake Total 920 140 Output Total 600 150 Balance 320 -10 Weight 64.5 kg Intake: IV 320 140 0.9 NS 320 140 Oral 600 Output: Urine 600 150 Other: Voiding Method Bedside Commode Bedside Commode Bedside Commode # Voids 1 1 - Exam Head exam was generally normal. There was no scleral icterus or corneal arcus. Mucous membranes were moist.Neck was supple and without jugular venous distension, thyromegaly, or carotid bruits. Carotids were easily palpable bilaterally. There was no adenopathy. Lung sounds are diminished bilaterally and there is few rales over the lung bases. There are diminished breath sounds no rhonchi, positive rhonchi and wheezes on examination.Cardiac exam revealed the PMI to be normally situated and sized. The rhythm was regular and no extrasystoles were noted during several minutes of auscultation. The first and second heart sounds were normal and physiologic splitting of the second heart sound was noted. There were no murmurs, rubs, clicks, or gallops.Abdominal exam revealed normal bowel sounds. The abdomen was soft, non-tender, and without masses, organomegaly, or appreciable enlargement of the abdominal aorta.Examination of the extremities revealed easily palpable radial, femoral and pedal pulses. There was no cyanosis, clubbing or edema. - Labs CBC & Chem 7: 12/24/16 06:10 12/23/16 06:25 Labs: Abnormal Lab Results - Last 24 Hours (Table) 12/24/16 12/24/16 Range/Units 16:03 21:02 POC Glucose (mg/dL) 279 H 167 H (75-99) mg/dL Assessment and Plan Plan: 1 metastatic stage IV adenocarcinoma of the lung, post systemic chemotherapy with 3 cycles of carboplatinum and Alimta and palliative radiation therapy. 2 acute on top of chronic respiratory failure with worsening hypoxemia. CAT scan of the chest was noted and there is no evidence of pulmonary embolism yet that is progression of the nodular metastatic lesions bilaterally more so on the right. In addition, the patient has noted increase in size of the lymphadenopathy in the axillary in the supraclavicular area. This is in agreement with her disease progression. Acute decompensation is also related to her COPD exacerbation. Patient will be treated 3 chronic bilateral pleural effusions, likely malignant 4 advanced COPD with chronic hypoxic respiratory failure maintained on 3 L of oxygen by nasal cannula on outpatient basis 5 left vocal cord paralysis with secondary hoarseness 6 breast cancer history of 7 hyperlipidemia 8 hypertension 9 GE reflux 10 generalized weakness with diminished oral intake and poor baseline performance and functional status. Recommendation: Continue present treatment plan, continue bronchodilators antibiotics and steroids, long-term prognosis is extremely poor and guarded. Today I went ahead and discussed the option of hospice evaluation of the patient. Patient seems to be quite agreeable, and family will discuss it among themselves. Time with Patient: Less than 30
[2016-12-25 12:19] LABS: Glucose,Whole Blood 192 mg/dL (75-99)
--- NOTE | 2016-12-25 15:35 | P.PN ---
Subjective Principal diagnosis: DEE DEE, COPD exacerbation Pt seen today in f/u, she states a "rough" morning, she could not breathe, it took her about 1/2 hour to recuperate, she is not feeling as well today as she did yesterday. She was washed up at bedside with assist, voice hoarseness is stable. Appetite is ok. She is feeling anxious. Objective - Vital Signs Vital signs: Vital Signs Temp 97.6 F 12/25/16 08:00 Pulse 104 H 12/25/16 13:15 Resp 18 12/25/16 12:00 BP 130/79 12/25/16 12:00 Pulse Ox 96 12/25/16 12:00 Intake & Output 12/24/16 12/25/16 12/25/16 18:59 06:59 18:59 Intake Total 920 140 Output Total 600 150 Balance 320 -10 Weight 64.5 kg Intake: IV 320 140 0.9 NS 320 140 Oral 600 Output: Urine 600 150 Other: Voiding Method Bedside Commode Bedside Commode Bedside Commode # Voids 1 1 - Constitutional General appearance: Present: cooperative, mild distress, thin - EENT ENT: Present: normal oropharynx - Respiratory Respiratory: bilateral: rhonchi - Cardiovascular Heart sounds: normal: S1, S2 - Peripheral edema leg Peripheral Edema: bilateral: None - Gastrointestinal General gastrointestinal: Present: normal bowel sounds, soft - Neurologic Neurologic: Present: CNII-XII intact - Musculoskeletal Musculoskeletal: Present: generalized weakness, strength equal bilaterally - Psychiatric Psychiatric: Present: A&O x's 3, appropriate affect, intact judgment & insight - Labs CBC & Chem 7: 12/24/16 06:10 12/23/16 06:25 Labs: Abnormal Lab Results - Last 24 Hours (Table) 12/24/16 12/24/16 12/25/16 Range/Units 16:03 21:02 12:06 POC Glucose (mg/dL) 279 H 167 H 192 H (75-99) mg/dL - Imaging and Cardiology Chest x-ray: report reviewed Assessment and Plan (1) Adenocarcinoma of lung Narrative/Plan: We had a discussion today about the concern for the patient decompensating since yesterday. We discussed that likely what we are dealing with is progression of malignancy. Treatment at this point would likley not be effective rapidly enough to provide pt with quality or quantity of life. We talked about comfort, pain and anxiety control. Some med adjustments have been made. Pt and family are going to talk about what their goals and expectations are, treatment stays the same and pt will be reassessed in the AM. Status: Chronic
[2016-12-25] MEDS: LORazepam 1 MG TAB PO SCH ×3 (16:57→22:58)
[2016-12-25 17:07] LABS: Glucose,Whole Blood 177 mg/dL (75-99)
[2016-12-25] MEDS: DOCUSATE 100 MG CAP PO SCH (20:17)
[2016-12-25] MEDS: MIRTAZAPINE 15 MG TAB PO SCH (20:18)
[2016-12-25 20:29] LABS: Glucose,Whole Blood 148 mg/dL (75-99)
[2016-12-25 20:58] LABS: Glucose,Whole Blood 140 mg/dL (75-99)
[2016-12-25] MEDS: LEVOFLOXACIN 750 MG TAB PO SCH (21:04)
[2016-12-25] MEDS: HYDROcodone/APAP 7.5-325MG 1 EACH TAB PO PRN (21:21)
[2016-12-26 05:51] LABS: Glucose,Whole Blood 117 mg/dL (75-99)
[2016-12-26] MEDS: INSULIN LISPRO (humaLOG) 300 UNIT/3 ML VIAL SQ SCH ×4 (06:07→22:18)
[2016-12-26] MEDS: methylPREDNISolone SOD SUCCI 125 MG/2 ML VIAL IV SCH ×4 (06:32→23:05)
[2016-12-26] MEDS: MAG HYDROX/AL HYDROX/SIMETH 30 ML, diphenhydrAMINE ELIXIR 75 MG, LIDOCAINE VISCOUS 30 ML PO SCH ×9 (06:32→17:17)
[2016-12-26] MEDS: PANTOPRAZOLE 40 MG TABLET PO SCH (06:32)
[2016-12-26] MEDS: LEVOTHYROXINE 25 MCG TAB PO SCH (06:32)
[2016-12-26] MEDS: LORazepam 1 MG TAB PO SCH ×2 (07:34→17:17)
[2016-12-26] MEDS: LEVALBUTEROL NEB 1.25 MG/3 ML AMP INHALATION SCH ×3 (07:44→19:41)
[2016-12-26] MEDS: FORMOTEROL FUMARATE 20 MCG/2 ML NEBU INHALATION SCH ×2 (08:00→19:41)
[2016-12-26] MEDS: FUROSEMIDE 10 MG/ML 4 ML VIAL IV SCH (09:03)
[2016-12-26] MEDS: CHLORPHEN-HYDROcod 8-10mg/5ml 5 ML ORAL.SYRG PO SCH ×2 (09:04→20:11)
[2016-12-26] MEDS: HEPARIN SODIUM,PORCINE 5,000 UNIT/ML 1 ML VIAL SQ SCH ×3 (09:06→23:05)
[2016-12-26] MEDS: HYDROcodone/APAP 7.5-325MG 1 EACH TAB PO PRN ×2 (10:18→20:12)
[2016-12-26] MEDS: ASPIRIN 81 MG CHEW PO SCH (10:45)
[2016-12-26] MEDS: DOCUSATE 100 MG CAP PO SCH ×2 (10:46→20:06)
[2016-12-26] MEDS: METOPROLOL TARTRATE 25 MG TAB PO SCH ×3 (10:46→22:19)
[2016-12-26] MEDS: POTASSIUM CHLORIDE ER 10 MEQ TAB.ER.PRT PO SCH ×2 (10:47→22:19)
[2016-12-26 11:52] LABS: Glucose,Whole Blood 185 mg/dL (75-99)
[2016-12-26] MEDS: MAGNESIUM OXIDE 400 MG TAB PO SCH (12:30)
[2016-12-26] MEDS: FOLIC ACID 1 MG TAB PO SCH (12:30)
--- NOTE | 2016-12-26 12:45 | P.PN ---
Subjective Principal diagnosis: Acute on chronic respiratory failure secondary to COPD and stage IV adenocarcinoma of the lungs 71-year-old female patient with known history of metastatic adenocarcinoma of the lung, stage IV disease treated with systemic chemotherapy with a combination of carboplatinum and Alimta. The patient had completed a total of 3 cycles of systemic chemotherapy and radiation therapy to her chest. The patient initially came to presented with a left supraclavicular lymphadenopathy and a left upper lobe mass with extensive mediastinal lymphadenopathy for which the patient underwent a biopsy of the supraclavicular lymph node and the patient was diagnosed having an adenocarcinoma of the lung. The patient was also found to have a left vocal cord paralysis related to the thoracic tumor. The patient has COPD and chronic hypoxic respiratory failure. The patient was started on systemic chemotherapy. Her latest hospitalization was in November 2016 where the patient presented with dry heaves and nausea vomiting and dehydration and electrodes imbalance post systemic chemotherapy. The patient was stabilized and she was discharged home. Since then the patient has not received any further systemic chemotherapy. The patient completed her last session of systemic chemotherapy approximately a month ago. She is under the care of Dr. Davis and she is being considered for immunotherapy. The patient came into the hospital because of worsening shortness of breath. This started this morning as the patient woke up with increased difficulty breathing. She typically uses 3 L of oxygen at home and she was reported to be hypoxic with a pulse ox of 84% of these of oxygen nasal cannula up on EMS arrival to her house. The patient was placed on a 100% percent nonrebreather. She was brought to the emergency which she was given DuoNeb nebulized treatments and IV Solu-Medrol and she was placed on BiPAP treatment. Lactic acid level was elevated at 2.8 and subsequently dropped down to 1.8. First set of troponins of 0.127. White cell count is not elevated at 13.6. Rest of the electrodes are all within normal limits. The BNP level is at 420. I discussed the case with the emergency department doctor and I asked him to proceed with a computed tomography scan of the chest which Completed. I reviewed the CAT scan of the chest and neck compared to the earlier CAT scan that was done in November 2016. There is worsening and another metastatic lesions throughout the lung fischer bilaterally more so on the right. The pleural fluids are essentially stable in the lung bases probably likely worse on the left. There is no evidence of pulmonary embolism. The patient is currently on 3 L and she is off the BiPAP. Reevaluated today on 12/22/2016, patient is overall about the same, maybe at that better compared to yesterday. Remains on bronchodilators, remains on oxygen, I reviewed the CT of the chest with the patient, and clearly shows diffuse metastatic disease patient is very well aware of the poor prognostic picture. Awaiting recommendation from oncology regarding future treatment plan. All labs were reviewed and they seem to be relatively unremarkable. Reevaluated on 12/23/2016, feeling better today, breathing a lot easier. Less cough and less wheezing less shortness of breath. Patient seems to be improving but her chest x-ray and her CT of the chest are still concerning, and I still believe the overall prognostic picture is extremely poor.CBC and basic metabolic profile were reviewed from today, and they seem to be relatively unremarkable. Reevaluated on 12/24/2016, improving slowly but surely. Less cough and less wheezing less shortness of breath, it is surprising that the patient is doing better than expected considering her advanced age lungs CA. Patient has a stage IV lung cancer. On 12/25/2016, patient is about the same, today she seems to have intermittent episodes of shortness of breath cough and wheezing. All her meds are practically about the same, and she seems to be maximized on bronchodilators and steroids. Today I discussed with the family option of considering hospice since we are very well aware that her condition is terminal, and it is about time that somebody will make family aware that the overall prognosis is definitely poor no matter what. Family is going to discuss with him the lung themselves, and it seems to me that hospice would be the best approach at this point. Clinically the patient is not making significant improvement, and her condition is definitely not curable. We are clearly dealing with a terminal stage IV lung cancer. Not to mention the underlying COPD On 12/26/2016, patient is again about the same, she feels short of breath, intermittent cough and wheezing, and she feels generally weak and tired. Patient is maximized on bronchodilators, she finished chemotherapy, and overall prognosis remains extremely poor and guarded. And clearly her condition is terminal. Patient and family are all aware of this fact. I still believe patient should be considered for hospice. Objective - Vital Signs Vital signs: Vital Signs Temp 98.4 F 12/26/16 11:52 Pulse 127 H 12/26/16 11:52 Resp 20 12/26/16 11:55 BP 125/69 12/26/16 11:52 Pulse Ox 93 L 12/26/16 07:37 Intake & Output 12/25/16 12/26/16 12/26/16 18:59 06:59 18:59 Intake Total 0 180 Output Total 680 200 Balance -680 -200 180 Weight 58.3 kg Intake: IV 0 0.9 NS 0 Oral 180 Output: Urine 680 200 Other: Voiding Method Bedside Commode # Voids 2 # Bowel Movements 1 - Exam Head exam was generally normal. There was no scleral icterus or corneal arcus. Mucous membranes were moist.Neck was supple and without jugular venous distension, thyromegaly, or carotid bruits. Carotids were easily palpable bilaterally. There was no adenopathy. Lung sounds are diminished bilaterally and there is few rales over the lung bases. There are diminished breath sounds no rhonchi, positive rhonchi and wheezes on examination.Cardiac exam revealed the PMI to be normally situated and sized. The rhythm was regular and no extrasystoles were noted during several minutes of auscultation. The first and second heart sounds were normal and physiologic splitting of the second heart sound was noted. There were no murmurs, rubs, clicks, or gallops.Abdominal exam revealed normal bowel sounds. The abdomen was soft, non-tender, and without masses, organomegaly, or appreciable enlargement of the abdominal aorta.Examination of the extremities revealed easily palpable radial, femoral and pedal pulses. There was no cyanosis, clubbing or edema. - Labs CBC & Chem 7: 12/24/16 06:10 12/23/16 06:25 Labs: Abnormal Lab Results - Last 24 Hours (Table) 12/25/16 12/25/16 12/25/16 Range/Units 16:55 20:27 20:56 POC Glucose (mg/dL) 177 H 148 H 140 H (75-99) mg/dL 12/26/16 12/26/16 Range/Units 05:48 11:50 POC Glucose (mg/dL) 117 H 185 H (75-99) mg/dL Assessment and Plan Plan: 1 metastatic stage IV adenocarcinoma of the lung, post systemic chemotherapy with 3 cycles of carboplatinum and Alimta and palliative radiation therapy. 2 acute on top of chronic respiratory failure with worsening hypoxemia. CAT scan of the chest was noted and there is no evidence of pulmonary embolism yet that is progression of the nodular metastatic lesions bilaterally more so on the right. In addition, the patient has noted increase in size of the lymphadenopathy in the axillary in the supraclavicular area. This is in agreement with her disease progression. Acute decompensation is also related to her COPD exacerbation. Patient will be treated 3 chronic bilateral pleural effusions, likely malignant 4 advanced COPD with chronic hypoxic respiratory failure maintained on 3 L of oxygen by nasal cannula on outpatient basis 5 left vocal cord paralysis with secondary hoarseness 6 breast cancer history of 7 hyperlipidemia 8 hypertension 9 GE reflux 10 generalized weakness with diminished oral intake and poor baseline performance and functional status. Recommendation: Continue present treatment plan, continue bronchodilators antibiotics and steroids, long-term prognosis is extremely poor and guarded. Family and the patient are all aware of the terminal condition of this patient. And again I still believe hospice would be an option to consider.. Time with Patient: Less than 30
[2016-12-26 14:45] VITALS: BMI 23.5
[2016-12-26 16:52] LABS: Glucose,Whole Blood 157 mg/dL (75-99)
--- NOTE | 2016-12-26 17:16 | P.PN ---
Subjective the patient states that she slept well, but was confused in the a.m. She remains quite weak and gets short of breath with even minimal exertion. She was continuing on 5 L of oxygen, which was reduced to 4 L today. Objective - Vital Signs Vital signs: Vital Signs Temp 98.4 F 12/26/16 11:52 Pulse 111 H 12/26/16 15:00 Resp 18 12/26/16 15:00 BP 142/82 12/26/16 15:00 Pulse Ox 96 12/26/16 15:00 Intake & Output 12/25/16 12/26/16 12/26/16 18:59 06:59 18:59 Intake Total 0 180 Output Total 680 200 Balance -680 -200 180 Weight 58.3 kg 58.3 kg Intake: IV 0 0.9 NS 0 Oral 180 Output: Urine 680 200 Other: Voiding Method Bedside Commode # Voids 2 # Bowel Movements 1 - Constitutional Constitutional Comment(s): increased respiratory rate, marked generalized weakness - EENT Eyes: Present: PERRLA ENT: Present: hearing grossly normal, normal oropharynx - Respiratory Respiratory: bilateral: CTA - Cardiovascular Rhythm: regular Heart sounds: normal: S1, S2 - Gastrointestinal General gastrointestinal: Present: normal bowel sounds, soft - Musculoskeletal Musculoskeletal: Present: generalized weakness - Psychiatric Psychiatric: Present: A&O x's 3 - Labs CBC & Chem 7: 12/24/16 06:10 12/23/16 06:25 Labs: Abnormal Lab Results - Last 24 Hours (Table) 12/25/16 12/25/16 12/26/16 Range/Units 20:27 20:56 05:48 POC Glucose (mg/dL) 148 H 140 H 117 H (75-99) mg/dL 12/26/16 12/26/16 Range/Units 11:50 16:50 POC Glucose (mg/dL) 185 H 157 H (75-99) mg/dL Assessment and Plan (1) Acute respiratory failure with hypoxia Narrative/Plan: the patient has been aggressively treated for COPD exacerbation and possible pneumonia. On examination, air entry actually appears to be quite good with the minimal wheezing. She has been closely followed by pulmonary medicine. Despite the above, there has not been significant improvement in her hypoxia and oxygen requirement. O2 was able to be reduced to 4 L, but on that, her respiratory rate as well as heart rate remains significantly high. Therefore at this time, it appears that progression of the cancer in her lungs is a major component of her acute respiratory failure. Status: Acute (2) Adenocarcinoma of lung Narrative/Plan: as noted above, the patient's symptoms and hypoxia have not improved much with treatment for other causes. Therefore progression of the cancer appears to be the major component of her current symptoms. The implications of the same were discussed in detail with her and her family. her performance status at this time is very poor. She is mostly bedbound. PD-1 therapy is not fast acting, and one of the side effects is actually a possible pneumonitis. In her current situation, the possibility of for being able to receive the therapy logistically and benefit from it is very poor. I therefore recommended comfort care. They were agreeable to the same. Continue current treatment for now. The patient is a no code. Hospice will be consulted to start the process of discharge with comfort. Status: Chronic
[2016-12-26] MEDS: MIRTAZAPINE 15 MG TAB PO SCH (20:06)
[2016-12-26] MEDS: MAG HYDROX/AL HYDROX/SIMETH 30 ML, LIDOCAINE VISCOUS 30 ML, diphenhydrAMINE ELIXIR 75 M... PO SCH ×4 (20:13)
[2016-12-26 21:07] LABS: Glucose,Whole Blood 146 mg/dL (75-99)
[2016-12-26] MEDS: LORazepam 0.5 MG TAB PO SCH (22:19)
[2016-12-27 06:23] LABS: Glucose,Whole Blood 115 mg/dL (75-99)
[2016-12-27] MEDS: INSULIN LISPRO (humaLOG) 300 UNIT/3 ML VIAL SQ SCH ×4 (06:30→21:49)
[2016-12-27] MEDS: methylPREDNISolone SOD SUCCI 125 MG/2 ML VIAL IV SCH (06:32)
[2016-12-27] MEDS: LEVOTHYROXINE 25 MCG TAB PO SCH (06:32)
[2016-12-27] MEDS: PANTOPRAZOLE 40 MG TABLET PO SCH (06:33)
[2016-12-27] MEDS: MAG HYDROX/AL HYDROX/SIMETH 30 ML, LIDOCAINE VISCOUS 30 ML, diphenhydrAMINE ELIXIR 75 M... PO SCH ×16 (06:33→20:18)
[2016-12-27] MEDS: HYDROcodone/APAP 7.5-325MG 1 EACH TAB PO PRN (06:42)
[2016-12-27] MEDS: LEVALBUTEROL NEB 1.25 MG/3 ML AMP INHALATION SCH ×3 (07:11→20:52)
[2016-12-27] MEDS: FORMOTEROL FUMARATE 20 MCG/2 ML NEBU INHALATION SCH (07:11)
[2016-12-27] MEDS: POTASSIUM CHLORIDE ER 10 MEQ TAB.ER.PRT PO SCH ×2 (09:53→20:17)
[2016-12-27] MEDS: LORazepam 0.5 MG TAB PO SCH ×3 (09:53→22:51)
[2016-12-27] MEDS: CHLORPHEN-HYDROcod 8-10mg/5ml 5 ML ORAL.SYRG PO SCH ×2 (09:53→20:17)
[2016-12-27] MEDS: METOPROLOL TARTRATE 25 MG TAB PO SCH ×3 (09:53→20:17)
[2016-12-27] MEDS: ASPIRIN 81 MG CHEW PO SCH (09:54)
[2016-12-27] MEDS: FOLIC ACID 1 MG TAB PO SCH (09:55)
[2016-12-27] MEDS: HEPARIN SODIUM,PORCINE 5,000 UNIT/ML 1 ML VIAL SQ SCH ×3 (09:55→22:51)
[2016-12-27] MEDS: DOCUSATE 100 MG CAP PO SCH ×2 (09:55→20:17)
[2016-12-27] MEDS: FUROSEMIDE 10 MG/ML 4 ML VIAL IV SCH (09:55)
[2016-12-27] MEDS: MAGNESIUM OXIDE 400 MG TAB PO SCH (09:56)
--- NOTE | 2016-12-27 10:01 | P.PN ---
Subjective Principal diagnosis: metastatic lung cancer the patient was complaining of some increased pain today, a generalized, and more prominent in the mid back. Generalized weakness, and difficulty in breathing is essentially stable. Objective - Vital Signs Vital signs: Vital Signs Temp 97.8 F 12/27/16 04:00 Pulse 80 12/27/16 07:24 Resp 22 12/27/16 04:00 BP 123/80 12/27/16 04:00 Pulse Ox 93 L 12/27/16 04:00 Intake & Output 12/26/16 12/27/16 12/27/16 18:59 06:59 18:59 Intake Total 180 10 Balance 180 10 Weight 58.3 kg 58.1 kg Intake: IV 10 0.9 NS 10 Oral 180 Other: Voiding Method Bedside Commode # Voids 2 - Constitutional General appearance: Present: mild distress - EENT Eyes: Present: EOMI, PERRLA ENT: Present: hearing grossly normal - Respiratory Respiratory: bilateral: diminished - Cardiovascular Rhythm: regular Heart sounds: normal: S1, S2 - Gastrointestinal General gastrointestinal: Present: normal bowel sounds, soft - Integumentary Integumentary: Present: normal - Neurologic Neurologic: Present: CNII-XII intact - Musculoskeletal Musculoskeletal: Present: generalized weakness - Labs CBC & Chem 7: 12/24/16 06:10 12/23/16 06:25 Labs: Abnormal Lab Results - Last 24 Hours (Table) 12/26/16 12/26/16 12/26/16 Range/Units 11:50 16:50 21:06 POC Glucose (mg/dL) 185 H 157 H 146 H (75-99) mg/dL 12/27/16 Range/Units 06:21 POC Glucose (mg/dL) 115 H (75-99) mg/dL Assessment and Plan (1) Acute respiratory failure with hypoxia Narrative/Plan: the patient status essentially unchanged. Case was discussed with pulmonary medicine. they will switch her over to orals and inhalers. continue oxygen supplementation and supportive care Status: Acute (2) Adenocarcinoma of lung Narrative/Plan: the patient was somewhat more symptomatically today because of pain. Pain medications were reviewed and modified. Tylenol No. 3 that she was on at home, would be discontinued. IV morphine frequency will be increased. She is on Ativan 3 times a day, with dose reduced to 0.5 mg because of increasing sleepiness. Hospice consult is pending and will occur later today. Continue current care in the meantime. The patient is no code. Status: Chronic
[2016-12-27] MEDS: MORPHINE SULFATE 2 MG/ML SYRINGE IVP PRN ×2 (10:02→16:55)
[2016-12-27] MEDS: predniSONE 20 MG TAB PO SCH (10:08)
--- NOTE | 2016-12-27 11:24 | P.PN ---
Subjective Principal diagnosis: Acute on chronic respiratory failure secondary to COPD and stage IV adenocarcinoma of the lungs 71-year-old female patient with known history of metastatic adenocarcinoma of the lung, stage IV disease treated with systemic chemotherapy with a combination of carboplatinum and Alimta. The patient had completed a total of 3 cycles of systemic chemotherapy and radiation therapy to her chest. The patient initially came to presented with a left supraclavicular lymphadenopathy and a left upper lobe mass with extensive mediastinal lymphadenopathy for which the patient underwent a biopsy of the supraclavicular lymph node and the patient was diagnosed having an adenocarcinoma of the lung. The patient was also found to have a left vocal cord paralysis related to the thoracic tumor. The patient has COPD and chronic hypoxic respiratory failure. The patient was started on systemic chemotherapy. Her latest hospitalization was in November 2016 where the patient presented with dry heaves and nausea vomiting and dehydration and electrodes imbalance post systemic chemotherapy. The patient was stabilized and she was discharged home. Since then the patient has not received any further systemic chemotherapy. The patient completed her last session of systemic chemotherapy approximately a month ago. She is under the care of Dr. Davis and she is being considered for immunotherapy. The patient came into the hospital because of worsening shortness of breath. This started this morning as the patient woke up with increased difficulty breathing. She typically uses 3 L of oxygen at home and she was reported to be hypoxic with a pulse ox of 84% of these of oxygen nasal cannula up on EMS arrival to her house. The patient was placed on a 100% percent nonrebreather. She was brought to the emergency which she was given DuoNeb nebulized treatments and IV Solu-Medrol and she was placed on BiPAP treatment. Lactic acid level was elevated at 2.8 and subsequently dropped down to 1.8. First set of troponins of 0.127. White cell count is not elevated at 13.6. Rest of the electrodes are all within normal limits. The BNP level is at 420. I discussed the case with the emergency department doctor and I asked him to proceed with a computed tomography scan of the chest which Completed. I reviewed the CAT scan of the chest and neck compared to the earlier CAT scan that was done in November 2016. There is worsening and another metastatic lesions throughout the lung fischer bilaterally more so on the right. The pleural fluids are essentially stable in the lung bases probably likely worse on the left. There is no evidence of pulmonary embolism. The patient is currently on 3 L and she is off the BiPAP. Reevaluated today on 12/22/2016, patient is overall about the same, maybe at that better compared to yesterday. Remains on bronchodilators, remains on oxygen, I reviewed the CT of the chest with the patient, and clearly shows diffuse metastatic disease patient is very well aware of the poor prognostic picture. Awaiting recommendation from oncology regarding future treatment plan. All labs were reviewed and they seem to be relatively unremarkable. Reevaluated on 12/23/2016, feeling better today, breathing a lot easier. Less cough and less wheezing less shortness of breath. Patient seems to be improving but her chest x-ray and her CT of the chest are still concerning, and I still believe the overall prognostic picture is extremely poor.CBC and basic metabolic profile were reviewed from today, and they seem to be relatively unremarkable. Reevaluated on 12/24/2016, improving slowly but surely. Less cough and less wheezing less shortness of breath, it is surprising that the patient is doing better than expected considering her advanced age lungs CA. Patient has a stage IV lung cancer. On 12/25/2016, patient is about the same, today she seems to have intermittent episodes of shortness of breath cough and wheezing. All her meds are practically about the same, and she seems to be maximized on bronchodilators and steroids. Today I discussed with the family option of considering hospice since we are very well aware that her condition is terminal, and it is about time that somebody will make family aware that the overall prognosis is definitely poor no matter what. Family is going to discuss with him the lung themselves, and it seems to me that hospice would be the best approach at this point. Clinically the patient is not making significant improvement, and her condition is definitely not curable. We are clearly dealing with a terminal stage IV lung cancer. Not to mention the underlying COPD On 12/26/2016, patient is again about the same, she feels short of breath, intermittent cough and wheezing, and she feels generally weak and tired. Patient is maximized on bronchodilators, she finished chemotherapy, and overall prognosis remains extremely poor and guarded. And clearly her condition is terminal. Patient and family are all aware of this fact. I still believe patient should be considered for hospice. Seen on 12/27/2016, patient is about the same, discussed her condition with Dr. Carbajal, and I believe the patient will be seen by hospice today. She will even likely be discharged to hospice today. Overall the patient is about the same. Objective - Vital Signs Vital signs: Vital Signs Temp 97 F L 12/27/16 08:00 Pulse 102 H 12/27/16 08:00 Resp 30 H 12/27/16 08:00 BP 144/104 12/27/16 08:00 Pulse Ox 94 L 12/27/16 08:00 Intake & Output 12/26/16 12/27/16 12/27/16 18:59 06:59 18:59 Intake Total 180 10 Balance 180 10 Weight 58.3 kg 58.1 kg Intake: IV 10 0.9 NS 10 Oral 180 Other: Voiding Method Bedside Commode Bedside Commode # Voids 2 - Exam Head exam was generally normal. There was no scleral icterus or corneal arcus. Mucous membranes were moist.Neck was supple and without jugular venous distension, thyromegaly, or carotid bruits. Carotids were easily palpable bilaterally. There was no adenopathy. Lung sounds are diminished bilaterally and there is few rales over the lung bases. There are diminished breath sounds no rhonchi, positive rhonchi and wheezes on examination.Cardiac exam revealed the PMI to be normally situated and sized. The rhythm was regular and no extrasystoles were noted during several minutes of auscultation. The first and second heart sounds were normal and physiologic splitting of the second heart sound was noted. There were no murmurs, rubs, clicks, or gallops.Abdominal exam revealed normal bowel sounds. The abdomen was soft, non-tender, and without masses, organomegaly, or appreciable enlargement of the abdominal aorta.Examination of the extremities revealed easily palpable radial, femoral and pedal pulses. There was no cyanosis, clubbing or edema. - Labs CBC & Chem 7: 12/24/16 06:10 12/23/16 06:25 Labs: Abnormal Lab Results - Last 24 Hours (Table) 12/26/16 12/26/16 12/26/16 Range/Units 11:50 16:50 21:06 POC Glucose (mg/dL) 185 H 157 H 146 H (75-99) mg/dL 12/27/16 Range/Units 06:21 POC Glucose (mg/dL) 115 H (75-99) mg/dL Assessment and Plan Plan: 1 metastatic stage IV adenocarcinoma of the lung, post systemic chemotherapy with 3 cycles of carboplatinum and Alimta and palliative radiation therapy. 2 acute on top of chronic respiratory failure with worsening hypoxemia. CAT scan of the chest was noted and there is no evidence of pulmonary embolism yet that is progression of the nodular metastatic lesions bilaterally more so on the right. In addition, the patient has noted increase in size of the lymphadenopathy in the axillary in the supraclavicular area. This is in agreement with her disease progression. Acute decompensation is also related to her COPD exacerbation. Patient will be treated 3 chronic bilateral pleural effusions, likely malignant 4 advanced COPD with chronic hypoxic respiratory failure maintained on 3 L of oxygen by nasal cannula on outpatient basis 5 left vocal cord paralysis with secondary hoarseness 6 breast cancer history of 7 hyperlipidemia 8 hypertension 9 GE reflux 10 generalized weakness with diminished oral intake and poor baseline performance and functional status. Recommendation: Agree with hospice plans, prognosis is poor, patient clearly has terminal illness, strongly suggest comfort care measures. Time with Patient: Less than 30
[2016-12-27 11:46] LABS: Glucose,Whole Blood 169 mg/dL (75-99)
[2016-12-27] MEDS: MAG HYDROX/AL HYDROX/SIMETH 30 ML, diphenhydrAMINE ELIXIR 75 MG, LIDOCAINE VISCOUS 30 ML PO SCH ×3 (12:48)
[2016-12-27 16:48] LABS: Glucose,Whole Blood 140 mg/dL (75-99)
[2016-12-27] MEDS: LEVOFLOXACIN 750 MG TAB PO SCH (20:17)
[2016-12-27] MEDS: MIRTAZAPINE 15 MG TAB PO SCH (20:17)
[2016-12-27] MEDS: BUDESONIDE 1 MG/2 ML NEBU INHALATION SCH (20:52)
[2016-12-27 21:28] LABS: Glucose,Whole Blood 130 mg/dL (75-99)
[2016-12-28] MEDS: HYDROcodone/APAP 7.5-325MG 1 EACH TAB PO PRN (04:36)
[2016-12-28 06:32] LABS: Glucose,Whole Blood 114 mg/dL (75-99)
[2016-12-28] MEDS: INSULIN LISPRO (humaLOG) 300 UNIT/3 ML VIAL SQ SCH ×3 (06:38→17:57)
[2016-12-28] MEDS: LEVOTHYROXINE 25 MCG TAB PO SCH (06:38)
[2016-12-28] MEDS: MAG HYDROX/AL HYDROX/SIMETH 30 ML, LIDOCAINE VISCOUS 30 ML, diphenhydrAMINE ELIXIR 75 M... PO SCH ×12 (06:38→17:57)
[2016-12-28] MEDS: PANTOPRAZOLE 40 MG TABLET PO SCH (06:38)
[2016-12-28] MEDS: BUDESONIDE 1 MG/2 ML NEBU INHALATION SCH ×2 (07:55→19:34)
[2016-12-28] MEDS: LEVALBUTEROL NEB 1.25 MG/3 ML AMP INHALATION SCH ×3 (07:55→19:34)
[2016-12-28] MEDS: HEPARIN SODIUM,PORCINE 5,000 UNIT/ML 1 ML VIAL SQ SCH (08:08)
[2016-12-28] MEDS: POTASSIUM CHLORIDE ER 10 MEQ TAB.ER.PRT PO SCH (08:09)
[2016-12-28] MEDS: MAGNESIUM OXIDE 400 MG TAB PO SCH (08:09)
[2016-12-28] MEDS: FOLIC ACID 1 MG TAB PO SCH (08:09)
[2016-12-28] MEDS: CHLORPHEN-HYDROcod 8-10mg/5ml 5 ML ORAL.SYRG PO SCH (08:14)
[2016-12-28] MEDS: LORazepam 0.5 MG TAB PO SCH ×2 (08:14→15:14)
[2016-12-28] MEDS: ASPIRIN 81 MG CHEW PO SCH (08:14)
[2016-12-28] MEDS: METOPROLOL TARTRATE 25 MG TAB PO SCH ×2 (08:15→15:14)
[2016-12-28] MEDS: predniSONE 20 MG TAB PO SCH (08:15)
[2016-12-28] MEDS: FUROSEMIDE 10 MG/ML 4 ML VIAL IV SCH (08:15)
[2016-12-28] MEDS: DOCUSATE 100 MG CAP PO SCH (08:15)
--- NOTE | 2016-12-28 10:43 | P.PN ---
Subjective Has gotten somewhat weaker, with increased work of breathing. She states that she is very tired, and "just wants to go" Objective - Vital Signs Vital signs: Vital Signs Temp 97.8 F 12/28/16 00:00 Pulse 121 H 12/28/16 04:00 Resp 26 H 12/28/16 04:00 BP 133/83 12/28/16 04:00 Pulse Ox 94 L 12/28/16 04:00 Intake & Output 12/27/16 12/28/16 12/28/16 18:59 06:59 18:59 Intake Total 0 300 Balance 0 300 Weight 58 kg Intake: Oral 0 300 Other: Voiding Method Bedside Commode Bedside Commode # Voids 0 - Constitutional General appearance: Present: mild distress - EENT Eyes: Present: EOMI, PERRLA ENT: Present: hearing grossly normal, normal oropharynx - Respiratory Respiratory: bilateral: CTA - Cardiovascular Rhythm: regular Heart sounds: normal: S1, S2 - Gastrointestinal General gastrointestinal: Present: soft - Neurologic Neurologic: Present: CNII-XII intact - Musculoskeletal Musculoskeletal: Present: generalized weakness - Psychiatric Psychiatric: Present: A&O x's 3 - Labs CBC & Chem 7: 12/24/16 06:10 12/23/16 06:25 Labs: Abnormal Lab Results - Last 24 Hours (Table) 12/27/16 12/27/16 12/27/16 Range/Units 11:36 16:36 21:04 POC Glucose (mg/dL) 169 H 140 H 130 H (75-99) mg/dL 12/28/16 Range/Units 06:26 POC Glucose (mg/dL) 114 H (75-99) mg/dL Assessment and Plan (1) Acute respiratory failure with hypoxia Narrative/Plan: There is mild worsening of her status, as noted above. Patient is continuing on steroids, oxygen as well as aerosols. The objective at this time is comfort. Status: Acute (2) Adenocarcinoma of lung Narrative/Plan: The patient has progressive disease, and is not felt to be a candidate for further treatment. Her prognosis is felt to be very limited, likely terminal. As estimated blood expectancy is much less than 6 months, she is an appropriate candidate for hospice. Hospice has been consulted, and have met with the patient, and talked to the family. The patient will be transferred to oncology floor. She will be evaluated further by hospice, to see if she is a candidate for GIP, or if she is able to go home with hospice. Continue current supportive measures, with an objective of comfort care. The changes to her management will be made, as needed, to keep her comfortable Status: Chronic
[2016-12-28] MEDS: MORPHINE SULFATE 2 MG/ML SYRINGE IVP PRN ×2 (12:25→18:22)
[2016-12-28] MEDS: LORazepam 2 MG/ML SYRINGE IV PRN ×2 (15:09→20:36)
[2016-12-28 15:53] VITALS: BP 110/69; PULSE 114; RESP 20; TEMP 98.3
== END 2016-12-28 20:47 | disposition hospice, inpatient (51) | DRG 189 ==
LOC: EC 08:37 → 6ICU 10:27 → 6SEL 12-22 18:51 → 5ONC 12-28 11:54
PROVIDERS: ADMIT Internal Medicine Hematology & Oncology; ATTEND Internal Medicine Hematology & Oncology
DX: J96.21 Acute and chronic respiratory failure with hypoxia (principal); I21.3 ST elevation (STEMI) myocardial infarction of unspecified site; E43 Unspecified severe protein-calorie malnutrition; J18.9 Pneumonia, unspecified organism; J81.0 Acute pulmonary edema; J91.0 Malignant pleural effusion; C78.00 Secondary malignant neoplasm of unspecified lung; R64 Cachexia; C77.0 Secondary and unspecified malignant neoplasm of lymph nodes of head, face and neck; C78.7 Secondary malignant neoplasm of liver and intrahepatic bile duct; C34.12 Malignant neoplasm of upper lobe, left bronchus or lung; J44.0 Chronic obstructive pulmonary disease with (acute) lower respiratory infection; J44.1 Chronic obstructive pulmonary disease with (acute) exacerbation; N39.0 Urinary tract infection, site not specified; Z51.5 Encounter for palliative care; Z66 Do not resuscitate; J38.01 Paralysis of vocal cords and larynx, unilateral; Z99.81 Dependence on supplemental oxygen; E78.00 Pure hypercholesterolemia, unspecified; I34.0 Nonrheumatic mitral (valve) insufficiency; E55.9 Vitamin D deficiency, unspecified; F41.9 Anxiety disorder, unspecified; K21.9 Gastro-esophageal reflux disease without esophagitis; M19.91 Primary osteoarthritis, unspecified site; Z85.3 Personal history of malignant neoplasm of breast; E03.9 Hypothyroidism, unspecified; I10 Essential (primary) hypertension; E78.5 Hyperlipidemia, unspecified; Z96.652 Presence of left artificial knee joint; Z92.3 Personal history of irradiation; Z92.21 Personal history of antineoplastic chemotherapy; Z87.891 Personal history of nicotine dependence; Z90.49 Acquired absence of other specified parts of digestive tract; Z79.51 Long term (current) use of inhaled steroids; Z79.899 Other long term (current) drug therapy
CPT/HCPCS: 36415; 71010; 71275; 80053; 80061; 81001; 82550; 82553; 82803; 83605; 83735; 83880; 84100; 84443; 84484; 85025; 85610; 85730; 87040; 87077; 87086; 87186; 87502; 93005; 93306; 94640; 94660; 94760; 96365; 96367; 96375; 99285

== ENCOUNTER 2016-12-28 21:22 | Inpatient (IN) | payer OTHER ==
[2016-12-28] MEDS ORDERED: LORazepam 2 MG/ML SYRINGE IV PRN (21:38)
[2016-12-28] MEDS ORDERED: SCOPOLAMINE 1.5MG/72HR PATCH TRANSDERM PRN (21:39)
[2016-12-28] MEDS ORDERED: ONDANSETRON 4 MG/2 ML VIAL IVP PRN (21:40)
[2016-12-28 21:48] VITALS: BMI 23.3
[2016-12-28] MEDS: MORPHINE SULFATE 2 MG/ML SYRINGE IV PRN (23:54)
[2016-12-29] MEDS: LORazepam 2 MG/ML SYRINGE IV PRN ×4 (08:30→21:01)
[2016-12-29] MEDS ORDERED: MENTHOL-CAMPHOR-PHENOL LIP OINTMENT 0.35 OZ TUBE TOPICAL PRN (08:40)
--- NOTE | 2016-12-29 08:46 | P.HPIM ---
History of Present Illness H&P Date: 12/29/16 Chief Complaint: hospice, GIP Pt has history of metastatic NSCLC with intolerance to therapy and progressive respiratory symptoms. She is admitted general inpatient under hospice for end of life care. Pt is very anxious when seen, she wants to get to commode then wants to get back in bed. She is having difficulty catching her breath. Review of Systems Constitutional: Reports as per HPI Past Medical History Past Medical History: Cancer, COPD, GERD/Reflux, Hyperlipidemia, Hypertension, Osteoarthritis (OA), Thyroid Disorder Additional Past Medical History / Comment(s): Metastatic adenocarcinoma of the lung, stage IV disease, remote history of left breast cancer, COPD, chronic hypoxic respiratory failure maintained on oxygen 2 L/m nasal cannula, hyperlipidemia, GERD, hypothyroidism, left-sided vocal cord paralysis, lichen planus, osteoarthritis History of Any Multi-Drug Resistant Organisms: None Reported Past Surgical History: Breast Surgery, Cholecystectomy, Orthopedic Surgery Additional Past Surgical History / Comment(s): left total knee replacement 2012 , gall bladder 2007, left breat lumpectomy in 1999 with radiation treatments and lymph node removal on left side, EGD and colonoscopy that showed 3 polyps, left supraclavicular lymph node biopsy(pt stated was positive). Past Anesthesia/Blood Transfusion Reactions: No Reported Reaction Additional Past Anesthesia/Blood Transfusion Reaction / Comment(s): blood transfusion when she has her children-no ractions to the blood Past Psychological History: No Psychological Hx Reported Additional Psychological History / Comment(s): PT STATED TAKES XANAX AT NIGHT TO HELP SLEEP. PT LIVES WITH / 1 DOG IN SINGLE LEVEL HOME W/ BASEMENT. 2 STEPS TO GET INTO HOME- BASEMENT HAS 13 STEPS BUT DOES'NT HAVE TO GO DOWN STAIRS-[place] IS ON MAIN LEVEL. NO HOME CARE SERVICES. HAD HOME 02/NEBULIZER. 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 Smoking Status: Former smoker Past Alcohol Use History: None Reported Additional Past Alcohol Use History / Comment(s): started smoking 89,quit smoking 12 years ago(2004), was smoking 1 ppd. Past Drug Use History: None Reported - Past Family History Mother Family Medical History: Cancer Additional Family Medical History / Comment(s): bowel Father Family Medical History: CVA/TIA Brother(s) Family Medical History: No Reported History Sister(s) Family Medical History: No Reported History Daughter(s) Family Medical History: No Reported History Son(s) Family Medical History: No Reported History Medications and Allergies Home Medications Medication Instructions Recorded Confirmed Type Ondansetron [Zofran] 4 mg PO Q4H PRN 10/16/16 12/28/16 History LORazepam [Ativan] 0.5 mg PO TID PRN 12/21/16 12/28/16 History predniSONE 10 mg PO BID 12/21/16 12/28/16 History Allergies Allergy/AdvReac Type Severity Reaction Status Date / Time Penicillins Allergy Rash/Hives Verified 12/28/16 22:02 albuterol [From DuoNeb] AdvReac Nausea Verified 12/28/16 22:02 ipratropium [From DuoNeb] AdvReac Nausea Verified 12/28/16 22:02 Physical Exam Vitals: Intake and Output 12/28/16 12/29/16 12/29/16 22:59 06:59 14:59 Intake Total 30 Balance 30 Intake: IV 30 ns 30 Other: Voiding Method Bedside Commode # Voids 1 1 Weight 58 kg - Constitutional General appearance: cooperative, severe distress, thin - EENT oral mucosa is scabbed, bloody, dry - Respiratory audible crackles, shallow, rapid respirations - Cardiovascular Heart sounds: normal: S1, S2 Thrombosis Risk Factor Assmnt - Choose All That Apply Any of the Below Risk Factors Present?: Yes Each Factor Represents 1 point: Abnormal pulmonary function (COPD) Other Risk Factors: Yes Each Risk Factor Represents 2 Points: Age 61-74 years, Malignancy Other congenital or acquired thrombophilia - If yes, enter type in comment: No Thrombosis Risk Factor Assessment Total Risk Factor Score: 5 Thrombosis Risk Factor Assessment Level: High Risk Assessment and Plan (1) Adenocarcinoma of lung Status: Chronic Plan: Pt is admitted as general inpatient with hospice care. Pt was given x1 dose of ativan for severe anxiety with improvement in symptoms. Mouth care and supportive meds ordered.
[2016-12-29] MEDS: MORPHINE SULFATE 2 MG/ML SYRINGE IV PRN (11:00)
[2016-12-29] MEDS: MORPHINE SULFATE 2 MG/ML SYRINGE IVP PRN ×4 (12:05→22:01)
[2016-12-29] MEDS: MAG HYDROX/AL HYDROX/SIMETH 30 ML, diphenhydrAMINE ELIXIR 75 MG, LIDOCAINE VISCOUS 30 ML PO SCH ×12 (13:17→21:01)
[2016-12-30] MEDS: MORPHINE SULFATE 2 MG/ML SYRINGE IVP PRN ×3 (00:11→07:40)
[2016-12-30] MEDS: LORazepam 2 MG/ML SYRINGE IV PRN ×4 (01:24→22:18)
[2016-12-30] MEDS: MAG HYDROX/AL HYDROX/SIMETH 30 ML, diphenhydrAMINE ELIXIR 75 MG, LIDOCAINE VISCOUS 30 ML PO SCH ×9 (07:46→17:19)
[2016-12-30] MEDS ORDERED: LORazepam 2 MG/ML SYRINGE IV STA (08:45)
[2016-12-30] MEDS ORDERED: LORazepam 2 MG/ML SYRINGE IM STA (08:45)
[2016-12-30] MEDS ORDERED: MORPHINE SULFATE (100 MG/2 ML) 100 MG in SODIUM CHLORIDE 0.9% 100 ML IV PRN (09:00)
[2016-12-30] MEDS: MORPHINE SULFATE (100 MG/2 ML) 100 MG in SODIUM CHLORIDE 0.9% 100 ML IV PRN (10:24)
--- NOTE | 2016-12-30 17:54 | P.PN ---
Subjective Principal diagnosis: Hospice, GIP for pain/agitation control Pt seen this AM, she is restless, picking at her clothing, and saying that she wants to see her mom. She is not able to communicate directly with me, she did not answer my questions. Daughter was at bedside Objective - Vital Signs Vital signs: Intake & Output 12/29/16 12/30/16 12/30/16 18:59 06:59 18:59 Intake Total 290 6 Output Total 275 150 Balance -275 140 6 Intake: IV 90 ns 90 Intake, IV Titration 6 Amount Morphine Sulfate 100 mg 6 In Sodium Chloride 0.9% 100 ml @ 1.5 mls/hr IV . Q24H PRN Rx#:[id number] Oral 200 Output: Urine 275 150 Other: Voiding Method Indwelling Catheter Indwelling Catheter Indwelling Catheter # Voids 3 - Constitutional General appearance: Present: severe distress, thin - Respiratory Details: respirations shallow, rapid - Cardiovascular Heart sounds: normal: S1 (bounding), S2 Assessment and Plan (1) Adenocarcinoma of lung Narrative/Plan: Morphine drip ordered with titration to comfort Comfort medications ordered Cont to follow with pt, cont GIP status with hospice until symptoms managed Pt condition is terminal. Status: Chronic
[2016-12-30 23:13] VITALS: BP 108/58; PULSE 129; RESP 20; TEMP 98.3
[2016-12-31] MEDS: MAG HYDROX/AL HYDROX/SIMETH 30 ML, diphenhydrAMINE ELIXIR 75 MG, LIDOCAINE VISCOUS 30 ML PO SCH ×15 (02:24→21:25)
[2016-12-31] MEDS: LORazepam 2 MG/ML SYRINGE IV PRN ×2 (02:53→09:02)
--- NOTE | 2016-12-31 16:34 | P.PN ---
Subjective Principal diagnosis: GIP, metastatic NSCLC Pt seen today, she is unresponsive, agonal breathing, extremities cool to touch. Objective - Vital Signs Vital signs: Vital Signs Temp 98.3 F 12/30/16 23:12 Pulse 129 H 12/30/16 23:12 Resp 20 12/30/16 23:12 BP 108/58 12/30/16 23:12 Pulse Ox 85 L 12/30/16 23:12 Intake & Output 12/30/16 12/31/16 12/31/16 18:59 06:59 18:59 Intake Total 6 24 85 Output Total 200 Balance 6 -176 85 Intake: IV 85 ns 85 Intake, IV Titration 6 24 Amount Morphine Sulfate 100 mg 6 24 In Sodium Chloride 0.9% 100 ml @ 1.5 mls/hr IV . Q24H PRN Rx#:[id number] Oral 0 Output: Urine 200 Uretheral ([place]) 200 Other: Voiding Method Indwelling Catheter Indwelling Catheter Indwelling Catheter Assessment and Plan (1) Adenocarcinoma of lung Status: Chronic Plan: Cont morphine drip and supportive meds for comfort, titrate for comfort. Family was at bedside, they are aware and prepared for pt
[2016-12-31] MEDS: MORPHINE SULFATE (100 MG/2 ML) 100 MG in SODIUM CHLORIDE 0.9% 100 ML IV PRN (21:07)
--- NOTE | 2017-01-30 09:05 | P.DS ---
Providers Date of admission: 12/28/16 21:22 Expected date of discharge: 01/01/17 Attending physician: Kim Davis Primary care physician: Collins Bruno - Discharge Diagnosis(es) (1) Adenocarcinoma of lung Status: Chronic Priority: Medium Hospital Course: Pt was made comfort measures only and overnight. Plan - Discharge Summary Discharge Medication List Ondansetron [Zofran] 4 mg PO Q4H PRN 10/16/16 [History] LORazepam [Ativan] 0.5 mg PO TID PRN 12/21/16 [History] predniSONE 10 mg PO BID 12/21/16 [History] Discharge Disposition: - Preliminary Cause of Preliminary Cause of : metastatic lung cancer Pending Studies Pending Results: none
== END 2017-01-01 04:32 | disposition expired | DRG 181 ==
LOC: 5ONC 21:22
PROVIDERS: ADMIT Internal Medicine Hematology & Oncology; ATTEND Internal Medicine Hematology & Oncology
DX: C34.90 Malignant neoplasm of unspecified part of unspecified bronchus or lung (principal); J96.11 Chronic respiratory failure with hypoxia; C79.9 Secondary malignant neoplasm of unspecified site; J38.01 Paralysis of vocal cords and larynx, unilateral; Z99.81 Dependence on supplemental oxygen; J44.9 Chronic obstructive pulmonary disease, unspecified; F41.9 Anxiety disorder, unspecified; Z51.5 Encounter for palliative care; Z66 Do not resuscitate; K21.9 Gastro-esophageal reflux disease without esophagitis; E78.5 Hyperlipidemia, unspecified; M19.91 Primary osteoarthritis, unspecified site; E03.9 Hypothyroidism, unspecified; I10 Essential (primary) hypertension; Z85.3 Personal history of malignant neoplasm of breast; Z90.49 Acquired absence of other specified parts of digestive tract; Z96.652 Presence of left artificial knee joint; Z92.3 Personal history of irradiation; Z87.891 Personal history of nicotine dependence; Z79.52 Long term (current) use of systemic steroids; Z79.899 Other long term (current) drug therapy